=== PATIENT | male | born 1970 | race Caucasian/White ===

== ENCOUNTER 2019-11-30 14:59 | Inpatient (IN) | payer SELFPAY ==
[2019-11-30 15:17] VITALS: BP 170/114; PULSE 104; RESP 18; TEMP 39.3; O2SAT 95; BMI 30.4
--- NOTE | 2019-11-30 15:29 | CTR_ITS ---
PROCEDURE INFORMATION: Exam: CT Abdomen And Pelvis With Contrast Exam date and time: 11/30/2019 3:48 PM Age: 49 years old Clinical indication: Abdominal pain; Patient HX: C/O rlq pain w nausea and diarrhea TECHNIQUE: Imaging protocol: Computed tomography of the abdomen and pelvis with intravenous contrast. Radiation optimization: All CT scans at this facility use at least one of these dose optimization techniques: automated exposure control; mA and/or kV adjustment per patient size (includes targeted exams where dose is matched to clinical indication); or iterative reconstruction. Contrast material: OMNI 300; Contrast volume: 95 ml; Contrast route: 20G; COMPARISON: No relevant prior studies available. RADIATION DOSE METRICS: Total DLP: 1090.78 mGy-cm FINDINGS: Lungs: There is subpleural atelectasis of the dependent portions of the lungs. Mediastinal space: A small hiatal hernia is present. Liver: There is a diffuse decrease in hepatic parenchymal density, consistent with fatty infiltration. Gallbladder and bile ducts: Multiple calcified gallstones are present. The gallbladder is distended with fluid but there is no wall thickening or cholecystitis. There is no common bile duct dilation. Pancreas: Normal. No ductal dilation. Spleen: The spleen is normal. An accessory splenule is present. Adrenals: Normal. No mass. Kidneys and ureters: There is no evidence of hydronephrosis. There is no evidence of renal calcifications. Stomach and bowel: There is a segment of sigmoid colonic wall thickening consistent with severe acute colitis/diverticulitis. As an underlying colonic malignancy cannot be excluded, a follow-up examination after a course of treatment is recommended if clinically warranted. There is abundant sigmoid pericolonic wall thickening with extra luminal gas in the mesentery adjacent to the diverticulitis compatible with localized perforation. No abscess. There is marked wall thickening and inflammatory changes involving the loops of small bowel immediately adjacent to the abnormal: Compatible with probable reactive changes. No ileus or obstruction. The remaining loops of small bowel and colon have an appropriate appearance. There is moderate to severe diverticulosis. Appendix: A normal appendix is identified. Intraperitoneal space: Unremarkable. No free air. No significant fluid collection. Vasculature: There are numerous benign phleboliths in the pelvis. The aorta demonstrates mild atherosclerotic calcification. Lymph nodes: Unremarkable.No enlarged lymph nodes. Bladder: There is nonspecific bladder wall thickening. This may be related to incomplete distention. Reproductive: Unremarkable as visualized. Bones/joints: Osteopenia and moderate degenerative changes in the spine are noted. Soft tissues: There are small bilateral fat filled inguinal hernias. CT/CT abdomen pelvis w con* [id number] IMPRESSION: 1. There is a segment of sigmoid colonic wall thickening consistent with severe acute colitis/diverticulitis. As an underlying colonic malignancy cannot be excluded, a follow-up examination after a course of treatment is recommended if clinically warranted. 2. There is abundant sigmoid pericolonic wall thickening with extra luminal gas in the mesentery adjacent to the diverticulitis compatible with localized perforation. No abscess. No additional free intraperitoneal air. 3. There is marked wall thickening and inflammatory changes involving the loops of small bowel /terminal ileum immediately adjacent to the abnormal sigmoid colon which is compatible with adjacent small bowel reactive changes. Radiation Dose CTDIVOL = (mGy): DLP = 1090.78 (mGy-cm)
--- NOTE | 2019-11-30 15:33 | W.ED.ABDPA2 ---
HPI - Abdominal Pain General: Chief Complaint: Abdominal Pain Stated Complaint: abd pain Time Seen by Provider: 11/30/19 15:27 History of Present Illness: HPI narrative: Mr. Chaudhary is a nice 49-year-old male comes in complaining of lower abdominal pain for the past 3 days. The pain is located in the right lower quadrant. He denies any nausea or vomiting but does feel constipated. He was unaware but does have a fever here. He denies any urinary symptoms other than it hurts more just before he has to urinate but after this he feels better. He denies any history of bowel problems and has had no surgeries on his abdomen. Associated Symptoms: Denies chills, coffee ground emesis, constipation, GI cramping, diarrhea, dysuria, fever(s), heartburn, hematochezia, hematuria, hematemesis, melena, nausea, syncope and vomiting Review of Systems Const: Denies: fever(s), chills, body aches, fatigue, malaise or diaphoresis Eyes: Denies: change in vision, blurry vision, blind spots or photophobia ENMT: Denies: throat pain, odynophagia, hoarseness, swelling of lips/tongue, ear or mastoid pain, ear discharge, change in hearing or nasal discharge Card: Denies: chest pain, palpitations, irregular heart rhythm, edema, lightheadedness, syncope, pre-syncope, dyspnea on exertion or orthopnea Resp: Denies: dyspnea, productive cough, non-productive cough, wheezing, hemoptysis or chest congestion GI: Reports: abdominal pain; Denies: nausea, vomiting, hematemesis, coffee ground emesis, heartburn, diarrhea, constipation, GI cramping, hematochezia or melena : Denies: flank pain, dysuria, urinary frequency, urinary urgency or hematuria Musc: Denies: neck pain, back pain, extremity pain, extremity swelling, joint pain, joint swelling, joint redness, joint warmth or joint stiffness Skin/Breast: Denies: rash, pruritus, erythema, skin tenderness or jaundice Neuro: Denies: headache(s), numbness in extremities, weakness in extremities, sensory changes, lack of coordination, difficulty walking, dizziness, vertigo, confusion or Slurred speech present Venkata/Lymph: Denies: easy bruising, easy bleeding, petechiae, purpura or enlarged lymph nodes All/Imm: Denies: urticaria, throat swelling, tongue swelling, facial swelling or acute wheezing PFSH ED PFSH: Medical History (Updated 11/30/19 @ 17:50 by Lanette Palumbo MD) Hypertension No pertinent past medical history Surgical History No history of previous surgery Social History Smoking and tobacco status: current every day smoker Physical Exam Const: COMMON NORMALS: no acute distress, patient oriented x3, no limitations, healthy appearing and well nourished GENERAL APPEARANCE: cooperative, well kempt and well developed HENMT: COMMON NORMALS: normocephalic, atraumatic, external ears normal, EAC's normal and Normal external nose present HEAD & SCALP: normal to inspection, normocephalic and atraumatic FACE & SINUS: normal facial exam and face symmetric NOSE: Normal external nose present and Normal nares present EXTERNAL EAR: Yes external ears normal EXTERNAL AUDITORY CANAL: EAC's normal MOUTH: Normal oral and palatal mucosa present, lip normal and tongue normal Eye: COMMON NORMALS: Equal, round and reactive pupils present and conjunctivae normal GENERAL EYE: appearance normal, both eyes and all related structures ALIGNMENT: Yes alignment normal PERIORBITAL: periorbital findings normal EYELID: eyelids normal CONJUNCTIVA: Yes conjunctivae normal SCLERA: sclerae normal PUPIL: Yes Equal, round and reactive pupils present Neck/C-Spine: COMMON NORMALS: full ROM, no lymphadenopathy, supple, no meningeal signs and no JVD GENERAL: Yes normal visual inspection and Yes trachea midline Chest: COMMONS NORMALS: normal inspection of the chest and normal palpation of entire chest wall Resp: COMMON NORMALS: normal respiratory effort, No retractions and No use of accessory muscles EFFORT & INSPECTION: Yes able to speak in complete sentences and Yes symmetric chest movement AUSCULTATION: no crackles, no rales, no rhonchi and no wheezes Cardio: COMMON NORMALS: no JVD, regular rate, regular rhythm, S1 normal heart sound present and S2 normal heart sound present RATE: regular rate RHYTHM: regular rhythm HEART SOUNDS: S1 normal heart sound present, S2 normal heart sound present, no click, no gallops, no murmurs, no rubs and abnormal split S2 GI: COMMON NORMALS: Soft to palpation and No hepatosplenomegaly present PALPATION: Yes Soft to palpation, Yes Tenderness to palpation present (GI) Details: RLQ, No Guarding due to palpation present (GI), No Rigid due to palpation, Yes No hepatosplenomegaly present, No Hernia present, No Palpable mass present and No Pulsatile mass present : COMMON NORMALS: Yes no CVA tenderness BLADDER/KIDNEY EXAM: Yes no CVA tenderness Back/Pelvis: COMMON NORMALS: no CVA tenderness, thoracic and lumbar spine normal to inspection, no thoracic nor lumbar tenderness and thoraco-lumbar ROM normal Extremity: COMMON NORMALS: normal to inspection, full ROM, capillary refill normal, no joint enlargement, no clubbing, cyanosis or edema and no calf tenderness Neuro: COMMON NORMALS: patient oriented x3, CN's II-XII intact bilaterally, moves all extremities, no focal motor deficits and no sensory deficits noted MENINGEAL SIGNS: Yes no meningeal signs SPEECH: speech normal Psych: COMMON NORMALS: mental status grossly normal, Normal thought process present, cooperative, normal affect, speech normal and activity/motor behavior normal APPEARANCE: Yes well kempt SPEECH: Yes normal speech THOUGHT PROCESS: Normal thought process present Skin: COMMON NORMALS: no rashes or lesions noted, turgor normal, no jaundice, no petechiae and no mottling GENERAL SKIN EXAM: no rashes or lesions noted and turgor normal Course Vital Signs: Vital signs: Vital Signs Temperature 102.7 F H 11/30/19 15:17 Pulse Rate 77 11/30/19 18:40 Respiratory Rate 20 H 11/30/19 18:40 Blood Pressure 117/71 11/30/19 18:40 Pulse Oximetry 93 11/30/19 18:40 MDM - Abdominal Pain MDM Narrative: Medical decision making narrative: The case was reviewed with Dr. Jade and neck, they will admit and consult respectively. Both agreed with IV Zosyn. The patient understands he cannot eat or drink at this time and further care will be dictated on the inpatient side of service. Lab Data: Attestation: I reviewed the patient's lab results. Labs: Lab Results 11/30/19 11/30/19 11/30/19 Range/Units 15:54 15:54 15:54 WBC 18.0 H (4.0-10.0) 10^3/ uL RBC 5.25 (4.1-5.3) 10^6/u L Hgb 16.3 (11.7-16.6) g/dL Hct 48.9 (42.0-52.0) % MCV 93.1 (80-94) fL MCH 31.0 (28.0-34.0) pg MCHC 33.3 (30.0-36.0) g/dL RDW 12.1 (12.1-15.1) % Plt Count 195 (130-400) 10^3/c mm MPV 13.2 H (7.4-10.4) fL Neut % (Auto) 84.4 % Lymph % (Auto) 7.2 % [place] % (Auto) 7.2 % Eos % (Auto) 0.4 % Baso % (Auto) 0.2 % Neut # (Auto) 15.2 H (1.8-7.7) 10^3/u L Lymph # (Auto) 1.3 (0.8-4.8) 10^3/u L [place] # (Auto) 1.3 H (0.2-0.9) 10^3/u L Eos # (Auto) 0.1 (0.0-0.8) 10^3/u L Baso # (Auto) 0.0 (0.0-0.1) 10^3/u L Nucleated RBC % (a uto) 0 % Nucleated RBCs # 0.0 /100WBC Sodium 132 L (136-145) mmol/L Potassium 4.0 (3.5-5.1) mmol/L Chloride 95 L (98-107) mmol/L Carbon Dioxide 24 (22-29) mmol/L Anion Gap 17.0 (5-19) BUN 4 L (6-20) mg/dL Creatinine 0.8 (0.7-1.2) mg/dL GFR Calculation 102.3 (90-130) mL/min Glucose 123 H (65-115) mg/dL Calculated Osmolal ity 271 L (285-295) mOsm/k g Lactic Acid 1.5 (0.5-2.2) mmol/L Calcium 9.7 (8.5-10.5) mg/dL Total Bilirubin 0.8 (0.15-1.2) mg/dL AST 17 (0-40) U/L ALT 15 (0-41) U/L Alkaline Phosphata se 111 (40-130) IU/L Total Protein 7.6 (6.6-8.7) g/dL Albumin 4.0 (3.5-5.2) g/dL Globulin 3.6 (1.3-4.6) g/dL Lipase 19 (13-60) U/L Urine Color (Yellow) Urine Appearance (CLEAR) Urine pH (5-7) Ur Specific Gravit y (1.005-1.030) Urine Protein (Negative) Urine Glucose (UA) (Normal) Urine Ketones (Negative) Urine Blood (Negative) Urine Nitrate (Negative) Urine Bilirubin (NEGATIVE) Urine Urobilinogen (Negative) mg/dL Ur Leukocyte Carito ase (Negative) Urine RBC (0-2) /hpf Urine WBC (0-5) /hpf Ur Squamous Epith Cells (0-5) Urine Bacteria (NONE) 11/30/19 Range/Units 16:41 WBC (4.0-10.0) 10^3/ uL RBC (4.1-5.3) 10^6/u L Hgb (11.7-16.6) g/dL Hct (42.0-52.0) % MCV (80-94) fL MCH (28.0-34.0) pg MCHC (30.0-36.0) g/dL RDW (12.1-15.1) % Plt Count (130-400) 10^3/c mm MPV (7.4-10.4) fL Neut % (Auto) % Lymph % (Auto) % [place] % (Auto) % Eos % (Auto) % Baso % (Auto) % Neut # (Auto) (1.8-7.7) 10^3/u L Lymph # (Auto) (0.8-4.8) 10^3/u L [place] # (Auto) (0.2-0.9) 10^3/u L Eos # (Auto) (0.0-0.8) 10^3/u L Baso # (Auto) (0.0-0.1) 10^3/u L Nucleated RBC % (a uto) % Nucleated RBCs # /100WBC Sodium (136-145) mmol/L Potassium (3.5-5.1) mmol/L Chloride (98-107) mmol/L Carbon Dioxide (22-29) mmol/L Anion Gap (5-19) BUN (6-20) mg/dL Creatinine (0.7-1.2) mg/dL GFR Calculation (90-130) mL/min Glucose (65-115) mg/dL Calculated Osmolal ity (285-295) mOsm/k g Lactic Acid (0.5-2.2) mmol/L Calcium (8.5-10.5) mg/dL Total Bilirubin (0.15-1.2) mg/dL AST (0-40) U/L ALT (0-41) U/L Alkaline Phosphata se (40-130) IU/L Total Protein (6.6-8.7) g/dL Albumin (3.5-5.2) g/dL Globulin (1.3-4.6) g/dL Lipase (13-60) U/L Urine Color Yellow (Yellow) Urine Appearance Clear (CLEAR) Urine pH 6.5 (5-7) Ur Specific Gravit y 1.005 (1.005-1.030) Urine Protein Neg (Negative) Urine Glucose (UA) Norm (Normal) Urine Ketones Negative (Negative) Urine Blood Neg (Negative) Urine Nitrate Negative (Negative) Urine Bilirubin Neg (NEGATIVE) Urine Urobilinogen 1 H (Negative) mg/dL Ur Leukocyte Carito ase Negative (Negative) Urine RBC None (0-2) /hpf Urine WBC None (0-5) /hpf Ur Squamous Epith Cells None (0-5) Urine Bacteria None (NONE) Imaging Data ^: CT Abd/Pel: Radiologist's impression: [address] [address] [address] Scan Report Signed Patient: Dandre Chaudhary Unit #: [id number] : 1970 Age/Sex: 49 / M ADM Date: 11/30/19 Loc: ER Room/Bed: Attending Dr: Ordering Provider/Ordering MD: Alexandra Flores DO Date of Service: 11/30/19 Procedure(s): CT abdomen pelvis w con* [id number] Accession Number(s): [id number] Report Number: [id number] PROCEDURE INFORMATION: Exam: CT Abdomen And Pelvis With Contrast Exam date and time: 11/30/2019 3:48 PM Age: 49 years old Clinical indication: Abdominal pain; Patient HX: C/O rlq pain w nausea and diarrhea TECHNIQUE: Imaging protocol: Computed tomography of the abdomen and pelvis with intravenous contrast. Radiation optimization: All CT scans at this facility use at least one of these dose optimization techniques: automated exposure control; mA and/or kV adjustment per patient size (includes targeted exams where dose is matched to clinical indication); or iterative reconstruction. Contrast material: OMNI 300; Contrast volume: 95 ml; Contrast route: 20G; COMPARISON: No relevant prior studies available. RADIATION DOSE METRICS: Total DLP: 1090.78 mGy-cm FINDINGS: Lungs: There is subpleural atelectasis of the dependent portions of the lungs. Mediastinal space: A small hiatal hernia is present. Liver: There is a diffuse decrease in hepatic parenchymal density, consistent with fatty infiltration. Gallbladder and bile ducts: Multiple calcified gallstones are present. The gallbladder is distended with fluid but there is no wall thickening or cholecystitis. There is no common bile duct dilation. Pancreas: Normal. No ductal dilation. Spleen: The spleen is normal. An accessory splenule is present. Adrenals: Normal. No mass. Kidneys and ureters: There is no evidence of hydronephrosis. There is no evidence of renal calcifications. Stomach and bowel: There is a segment of sigmoid colonic wall thickening consistent with severe acute colitis/diverticulitis. As an underlying colonic malignancy cannot be excluded, a follow-up examination after a course of treatment is recommended if clinically warranted. There is abundant sigmoid pericolonic wall thickening with extra luminal gas in the mesentery adjacent to the diverticulitis compatible with localized perforation. No abscess. There is marked wall thickening and inflammatory changes involving the loops of small bowel immediately adjacent to the abnormal: Compatible with probable reactive changes. No ileus or obstruction. The remaining loops of small bowel and colon have an appropriate appearance. There is moderate to severe diverticulosis. Appendix: A normal appendix is identified. Intraperitoneal space: Unremarkable. No free air. No significant fluid collection. Vasculature: There are numerous benign phleboliths in the pelvis. The aorta demonstrates mild atherosclerotic calcification. Lymph nodes: Unremarkable.No enlarged lymph nodes. Bladder: There is nonspecific bladder wall thickening. This may be related to incomplete distention. Reproductive: Unremarkable as visualized. Bones/joints: Osteopenia and moderate degenerative changes in the spine are noted. Soft tissues: There are small bilateral fat filled inguinal hernias. CT/CT abdomen pelvis w con* [id number] IMPRESSION: 1. There is a segment of sigmoid colonic wall thickening consistent with severe acute colitis/diverticulitis. As an underlying colonic malignancy cannot be excluded, a follow-up examination after a course of treatment is recommended if clinically warranted. 2. There is abundant sigmoid pericolonic wall thickening with extra luminal gas in the mesentery adjacent to the diverticulitis compatible with localized perforation. No abscess. No additional free intraperitoneal air. 3. There is marked wall thickening and inflammatory changes involving the loops of small bowel /terminal ileum immediately adjacent to the abnormal sigmoid colon which is compatible with adjacent small bowel reactive changes. Radiation Dose CTDIVOL = (mGy): DLP = 1090.78 (mGy-cm) Dictated By: Sherita Bingham Signed By: Sherita Bingham Signed Date/Time: 11/30/19 1640 DD/ 1638 Discharge Plan Discharge Patient Disposition: Admitted As Inpatient Admit Provider: Robert Chow Clinical Impression: Diverticulitis large intestine Qualifiers: Diverticulitis bleeding: without bleeding Diverticulitis complication: with perforation Qualified Code(s): K57.20 - Diverticulitis of large intestine with perforation and abscess without bleeding Condition: Stable Discharge Date/Time: 11/30/19 18:41 Coding Level of Care Code ED Vp Account Director for [facility] Fwd Exam Comprehensive
[2019-11-30 16:02] LABS: Basophils % 0.2 %; Eosinophils # 0.1 10^3/uL (0.0-0.8); Eosinophils % 0.4 %; Hematocrit 48.9 % (42.0-52.0); Hemoglobin 16.3 g/dL (11.7-16.6); Lymphocytes # 1.3 10^3/uL (0.8-4.8); Lymphocytes % 7.2 %; Mean Corpuscular HGB Conc 33.3 g/dL (30.0-36.0); Mean Corpuscular Volume 93.1 fL (80-94); Mean Platelet Volume 13.2 fL (7.4-10.4); Monocytes # 1.3 10^3/uL (0.2-0.9); Monocytes % 7.2 %; Neutrophils # 15.2 10^3/uL (1.8-7.7); Neutrophils % 84.4 %; Nucleated Red Blood Cells % 0 %; Platelet Count 195 10^3/cmm (130-400); Red Blood Count 5.25 10^6/uL (4.1-5.3); Red Cell Distribution Width 12.1 % (12.1-15.1)
[2019-11-30 16:16] LABS: Alanine Aminotransferase 15 U/L (0-41); Alkaline Phosphatase 111 IU/L (40-130); Aspartate Amino Transferase 17 U/L (0-40); Blood Urea Nitrogen 4 mg/dL (6-20); Calcium 9.7 mg/dL (8.5-10.5); Carbon Dioxide 24 mmol/L (22-29); Chloride 95 mmol/L (98-107); Globulin 3.6 g/dL (1.3-4.6); Glomerular Filtration Rate 102.3 mL/min (90-130); Glucose 123 mg/dL (65-115); Lipase 19 U/L (13-60); Osmolality Calculated 271 mOsm/kg (285-295); Sodium 132 mmol/L (136-145); Total Bilirubin 0.8 mg/dL (0.15-1.2); Total Protein 7.6 g/dL (6.6-8.7)
[2019-11-30 16:17] LABS: Lactic Sepsis W/Reflex 1.5 mmol/L (0.5-2.2)
[2019-11-30] MEDS: ondansetron 2 mg/ML SDV 2 mL 4 MG IVP (16:17)
[2019-11-30 16:18] VITALS: RESP 18
[2019-11-30] MEDS: morphine 4 mg/mL SDV 1 mL IVP (16:18)
[2019-11-30] MEDS: lactated ringers 1,000 ML 150 ML IV (16:18)
[2019-11-30] MEDS: iohexol 300 mg/mL 100 mL Btl IV (16:21)
[2019-11-30] MEDS: piperacillin-tazobactam 3.375 GM in sodium chloride 0.9% (plus) 50 ML IV (17:04)
[2019-11-30 17:07] LABS: Bilirubin Urine Neg (NEGATIVE); Blood Urine Neg (Negative); Glucose Urine UA Norm (Normal); Ketones Urine Negative (Negative); Leukocyte Esterase Urine Negative (Negative); Nitrate Urine Negative (Negative); Protein Urine Neg (Negative); Specific Gravity, Urine 1.005 (1.005-1.030); Urine Appearance Clear (CLEAR); Urine Color Yellow (Yellow); Urobilinogen Urine 1 mg/dL (Negative); pH Urine 6.5 (5-7)
[2019-11-30 17:10] LABS: Add Urine Culture? No
--- NOTE | 2019-11-30 17:37 | P.HP_ITS ---
Providers/Chief Complaint Admitting Physician: Robert Chow MD Chief Complaint: abd pain History of Present Illness Dandre Chaudhary is a 49 year old male with a past medical history of hypertension, however he does not take any medications for it who presents to the ER complaining of abdominal pain that started on Sunday. Patient states being in his usual state of health until Sunday morning when he woke up with a right lower quadrant pain. The pain was initially in the right lower quadrant but then seemed to gravitate towards his umbilicus and has remained persistent since then. Intensity of pain is ranging between 4-8 upon 10. There are no aggravating or relieving factors, however he has noted that the pain is somewhat relieved after he has emptied his bladder. He initially he thought this pain may be related to constipation and took some laxatives, however this did not help. This morning he had a small liquid bowel movement. Prior to Sunday his bowel movements have been regular. He is not able to pass much gas. He has been tolerating p.o. intake. No history of vomiting. He has not noticed any blood in his stools recently. He last had a colonoscopy at age 29 for intractable right sided abdominal pain, which he says was pretty unremarkable. There is no history of colon cancer in the family. No history of inflammatory bowel disease. He has never had similar pain in the past. Overnight he also developed some chills and decided to come to the ER today for evaluation. Diagnostics in the ER were notable for a fever of 102.7 Fahrenheit, WBC count of 18. CT abdomen pelvis revealed sigmoid colonic wall thickening consistent with severe acute colitis/diverticulitis. Underlying colonic malignancy could not be excluded. There was abundant sigmoid pericolonic wall thickening with extraluminal gas in the mesentery compatible with a localized perforation. No abscesses were noted. There was no additional free intraperitoneal air. There was also marked wall thickening and inflammatory changes involving the loops of small bowel/terminal ileum immediately adjacent to the abnormal sigmoid colon which is very compatible with reactive changes. Review of Systems General: Reports: 10 or more systems reviewed and unremarkable except in HPI and below Const: Reports: chills; Denies: fever(s) or body aches Eyes: Denies: change in vision, blurry vision or photophobia ENMT: Denies: throat pain, enlarged tonsils, odynophagia, hoarseness or nasal congestion Card: Denies: chest pain, palpitations, irregular heart rhythm, edema, swelling of feet/ankles, lightheadedness, pre-syncope, dyspnea on exertion or orthopnea Resp: Denies: dyspnea, productive cough, non-productive cough, wheezing, stridor, pain on inspiration, change in phlegm color, hemoptysis or chest congestion GI: Reports: abdominal pain; Denies: nausea, vomiting, hematemesis, coffee ground emesis, dysphagia, heartburn, diarrhea, constipation, GI cramping, change in stool character, hematochezia or melena : Denies: flank pain, dysuria, urinary frequency, urinary urgency, urinary hesitancy or hematuria Musc: Denies: neck pain, back pain, extremity pain, joint swelling, joint warmth or deformity Neuro: Denies: headache(s), numbness in extremities, weakness in extremities, sensory changes, difficulty walking, frequent falls, dizziness, vertigo, behavioral changes, Slurred speech present or seizure-like activity Psych: Denies: anxiety, depression, suicidal ideation or homicidal ideation Endo: Denies: polyuria, polydipsia, tired all the time, cold intolerance or ho t flashes Venkata/Lymph: Denies: easy bruising or easy bleeding Medications/Allergies Home Medications Medication Instructions Recorded Confirmed Last Taken Type No Known Home Medications 11/30/19 11/30/19 Unknown History Allergies Allergy/AdvReac Type Severity Reaction Status Date / Time No Known Allergies Allergy Verified 11/30/19 15:24 PFSH Acute PFSH: Medical History (Updated 11/30/19 @ 17:50 by Lanette Palumbo MD) Hypertension No pertinent past medical history Surgical History No history of previous surgery Social History Smoking and tobacco status: current every day smoker Vitals/I&O/Wt Last Vital Signs Temp 102.7 F H 11/30/19 15:17 Pulse 104 H 11/30/19 15:17 Resp 18 11/30/19 16:18 BP 170/114 11/30/19 15:17 Pulse Ox 95 11/30/19 15:17 Weight last 48 hrs Weight 90.718 kg Physical Exam Narrative: EXAM NARRATIVE: GEN: Awake, alert and oriented, no acute distress HEENT: NC/AT, PERRLA CVS: S1S2 N RS: CTA B/L Abd: Soft, non distended, BS+, mild TTP over RLQ. TOPPER PRESS OPERATOR: no focal neuro deficits EXT: no swelling or rashes Data : 11/30/19 15:54 11/30/19 15:54 Micro: Microbiology 11/30/19 15:50 Blood Culture - Preliminary Blood SPECIMEN COLLECTED 11/30/19 15:54 Blood Culture - Preliminary Blood SPECIMEN COLLECTED A&P Assessment and plan (1) Sepsis: Status: Acute Qualifiers: Sepsis type: sepsis due to unspecified organism Sepsis acute organ dysfunction status: without acute organ dysfunction Qualified Code(s): A41.9 - Sepsis, unspecified organism (2) Perforated diverticulum of large intestine: Status: Acute (3) Diverticulitis large intestine: Status: Acute Qualifiers: Diverticulitis bleeding: without bleeding Diverticulitis complication: with perforation Qualified Code(s): K57.20 - Diverticulitis of large intestine with perforation and abscess without bleeding (4) Acute colitis: Status: Acute (5) Hypertension: Status: Acute Qualifiers: Hypertension type: essential hypertension Qualified Code(s): I10 - Essential (primary) hypertension Additional A&P [facility] 1., Meets criteria by way of tachycardia, fever and a source of infection by way of contained diverticular perforation. 2. Contained diverticular perforation. CT abdomen performed today consistent with acute colitis/diverticulitis. Pericolonic wall thickening with extraluminal gas in the mesentery compatible with localized perforation. No abscesses. No additional free intraperitoneal air. Surgical consult placed. Keep patient n.p.o. Antibiotic treatment with piperacillin tazobactam. PRN morphine and Toradol for pain control. IV fluids with D5 normal saline at 100 cc/h. Per CT underlying malignancy could not be ruled out, however this will be evaluated once the acute issues have been addressed. #3 hypertension Per patient he is diagnosed to have essential hypertension, he does not take any medications for this. For now since patient is n.p.o., will use as needed hydralazine Full code DVT prophylaxis Lovenox. Attestations Medical Necessity Statement*: Anticipate greater than 2 midnight admission for diverticulitis with contained perforation, need for IV hydration and IV antibiotics with bowel rest. Coding Level of Care Code Acute Medical Technologist Prn for g Fwd Diagnoses Sepsis A41.9 Sepsis type: sepsis due to unspecified organism Sepsis acute organ dysfunction status: without acute organ dysfunction Perforated diverticulum of large intestine K57.20 Diverticulitis large intestine K57.20 Diverticulitis bleeding: without bleeding Diverticulitis complication: with perforation Acute colitis K52.9 Hypertension I10 Hypertension type: essential hypertension
[2019-11-30] MEDS: enoxaparin 40 mg/0.4 mL Syringe SUBCUT (18:28)
[2019-11-30] MEDS: dextrose 5%-sod chloride 0.9% 1,000 ML 100 ML IV (18:30)
[2019-11-30 18:40] VITALS: BP 117/71; PULSE 77; RESP 20; O2SAT 93
[2019-11-30 19:55] VITALS: BP 135/86; PULSE 74; RESP 18; TEMP 37.2; O2SAT 96
[2019-11-30] MEDS: dextrose 5%-sod chloride 0.45% 1,000 ML 100 ML IV (20:15)
[2019-11-30] MEDS: ketorolac 30 mg/mL INJ 15 MG IVP (20:15)
[2019-11-30 22:27] VITALS: RESP 18
[2019-11-30] MEDS: morphine 4 mg/mL SDV 1 mL 2 MG IVP (22:27)
[2019-12-01] VITALS (7 sets, daily range): BP systolic 116–154; BP diastolic 74–93; PULSE 62–71; RESP 17–24; TEMP 36.9–37.3; O2SAT 94–96
[2019-12-01] MEDS: piperacillin-tazobactam 3.375 GM in sodium chloride 0.9% (plus) 50 ML IV ×3 (00:53→16:51)
[2019-12-01] MEDS: dextrose 5%-sod chloride 0.45% 1,000 ML 100 ML IV ×2 (06:05→15:16)
[2019-12-01] MEDS: ketorolac 30 mg/mL INJ 15 MG IVP (07:20)
[2019-12-01 07:41] LABS: Basophils % 0.2 %; Eosinophils # 0.2 10^3/uL (0.0-0.8); Eosinophils % 1.6 %; Hematocrit 41.9 % (42.0-52.0); Hemoglobin 13.9 g/dL (11.7-16.6); Lymphocytes # 0.9 10^3/uL (0.8-4.8); Lymphocytes % 7.1 %; Mean Corpuscular HGB Conc 33.2 g/dL (30.0-36.0); Mean Corpuscular Hemoglobin 31.2 pg (28.0-34.0); Mean Corpuscular Volume 93.9 fL (80-94); Mean Platelet Volume 13.4 fL (7.4-10.4); Monocytes # 0.9 10^3/uL (0.2-0.9); Neutrophils # 10.7 10^3/uL (1.8-7.7); Neutrophils % 83.7 %; Nucleated Red Blood Cells % 0 %; Platelet Count 178 10^3/cmm (130-400); Red Blood Count 4.46 10^6/uL (4.1-5.3); Red Cell Distribution Width 12.1 % (12.1-15.1); White Blood Count 12.8 10^3/uL (4.0-10.0)
[2019-12-01 08:06] LABS: Alanine Aminotransferase 28 U/L (0-41); Albumin Level 3.2 g/dL (3.5-5.2); Alkaline Phosphatase 119 IU/L (40-130); Anion Gap 13.9 (5-19); Aspartate Amino Transferase 31 U/L (0-40); Blood Urea Nitrogen 6 mg/dL (6-20); Calcium 8.2 mg/dL (8.5-10.5); Carbon Dioxide 23 mmol/L (22-29); Chloride 104 mmol/L (98-107); Globulin 2.7 g/dL (1.3-4.6); Glomerular Filtration Rate 102.3 mL/min (90-130); Glucose 107 mg/dL (65-115); Magnesium 2.3 mg/dL (1.7-2.3); Osmolality Calculated 280 mOsm/kg (285-295); Potassium 3.9 mmol/L (3.5-5.1); Sodium 137 mmol/L (136-145); Total Bilirubin 0.8 mg/dL (0.15-1.2); Total Protein 5.9 g/dL (6.6-8.7)
--- NOTE | 2019-12-01 09:26 | PC.CHAP ---
Pastoral Care Encounter/Spiritual Assessment Type of Contact [] Declined forest nursery supervisor visit [] Patient/Family/Request visit [] Outpatient visit [] Follow-up visit [] Physician referral [] Code/Alert [x] Routine visit [] Staff referral [] Actively dying [] Patient sleeping [] Family support [] [] Out of room [] Palliative care [] [] Receiving care in room [] Pre-surgical visit [] Trauma [] Long length of stay [] ICU visit [] Other: Relational/Emotional Strength [] Patient feels connected with others/family/visitors/staff [] Distress [] Loneliness/isolation [] Abandonment Spirituality of Patient [] Person of Nguyen [] Attends Jainism of their Nguyen [] Believes in Prayer [] Reads Bible or Voodoo materials [] There are Spiritual issues to be addressed [employer] [x] Prayer [] Active listening [] Non-anxious presence [] Spiritual/emotional support [] Crisis/trauma care [] Spiritual counseling [] Bereavement support [] Provided bereavement packet [] Provided Bible/devotional materials [] Provided toy/stuffed animal, coloring book to patient or family member [] Provided Communion [] Anointing/[place] [] Salvation [x] Completed spiritual assessment [] Other: Impact on Illness or Injury [] Angry [] Fearful [] Anxious [] Often cries [] Exhaustion [] Unable to work [] Unable to attend christianity [] Unable to walk/stand [] Unable to read [] Unable to drive [] Unable to eat/drink [] Unable to sleep [] Unable to be with family [] Patient intubated [] Other: Summary Patient resting well. Pain has eased . Time spent with patient 5 min
--- NOTE | 2019-12-01 09:39 | P.CONIM_ITS ---
Providers/Reason For Consult Consulting Physican/Specialty*: General Surgery Romel Villareal MD Reason for Consult*: Sigmoid diverticulitis with evidence of microperforation. Attending Physician: Rojas Issa MD History of Present Illness History of Present Illness Dandre Chaudhary is a 49 year old male who developed some right lower quadrant f ullness/pressure 3 days ago. He says this initially was somewhat of a constipation feeling, but then ended up getting more sore. The patient did take a stool softener but only had a very small bowel movement. His bowel movements prior to this were all normal. He denies any hematochezia but says he has had a small mucousy bowel movement as of yesterday. The pain continued to worsen over the weekend and he came into the emergency room last night with a fever of 102 ?F. His white blood cell count was found to be elevated at 18,000. He had obvious right lower quadrant tenderness on exam. A CAT scan of the abdomen revealed evidence of sigmoid diverticulitis with a few air bubbles outside of the colonic lumen. He was admitted and placed on broad-spectrum antibiotics. The patient says this has never happened to him before. He actually already feels a little bit better this morning but is still having some discomfort. He had a colonoscopy 20 years ago for some right-sided abdominal pain but says the exam was unremarkable. He has no known family history of colon polyps, colon cancer or inflammatory bowel disease. The patient says he does not have a regular primary care physician. Review of Systems General: Reports: 10 or more systems reviewed and unremarkable except in HPI and below Const: Reports: fever(s) GI: Reports: abdominal pain and change in stool character Meds/Allergies Home Medications and Allergies Home Medications Medication Instructions Recorded Confirmed Last Taken Type No Known Home Medications 11/30/19 11/30/19 Unknown History Allergies Allergy/AdvReac Type Severity Reaction Status Date / Time No Known Allergies Allergy Verified 11/30/19 15:24 Current Medications Current Medications Generic Name Dose Route Start Last Admin Trade Name Freq PRN Reason Stop Dose Admin Enoxaparin Sodium 40 mg 11/30/19 18:00 11/30/19 18:28 Lovenox SUBCUT 40 mg Q24H JABIER Administration Dextrose/Sodium Chloride 1,000 mls @ 100 mls/hr 11/30/19 19:04 12/01/19 06:05 Dextrose 5%-Sod Chloride 0.45% IV 100 mls/hr .Q10H JABIER Administration Piperacillin Sod/Tazobactam 50 mls @ 12.5 mls/hr 11/30/19 23:00 12/01/19 08:59 Sod 3.375 gm/ Sodium Chloride IV 12.5 mls/hr Q8H JABIER Administration Protocol Ketorolac Tromethamine 15 mg 11/30/19 17:31 12/01/19 07:20 Toradol IVP 12/05/19 17:30 15 mg Q8H PRN Administration MODERATE PAIN Morphine Sulfate 2 mg 11/30/19 17:31 11/30/19 22:27 Morphine IVP 2 mg Q4H PRN Administration SEVERE PAIN PFSH Acute PFSH: Medical History (Updated 12/01/19 @ 09:46 by Romel Villareal MD) Hypertension Surgical History No history of previous surgery Social History (Updated 12/01/19 @ 09:46 by Romel Villareal MD) Smoking and tobacco status: current every day smoker cigarettes Packs smoked per day: 1 Years cigarettes smoked: 35 Alcohol intake: current Alcohol intake frequency: 3 or more drinks per day Alcohol type: beer Alcohol use comment: 6-8 beers a day Vitals/I&O/Wt Last Vital Signs Temp 98.9 F 12/01/19 07:56 Pulse 71 12/01/19 07:56 Resp 18 12/01/19 07:56 BP 130/82 12/01/19 07:56 Pulse Ox 94 12/01/19 07:56 11/30/19 12/01/19 12/01/19 22:59 06:59 14:59 Intake Total 1000 / 1931.666 931.666 / 1931.666 Output Total 400 / 400 Balance 600 / 1531.666 931.666 / 1531.666 Weight last 48 hrs Weight 200 lb Physical Exam Narrative: EXAM NARRATIVE: The patient was encountered in his hospital room. He does not appear to be in any distress. The pupils are equal. No carotid bruits are heard. The lungs are clear anteriorly. The heart is regular. The abdomen is mildly obese but does reveal some bowel sounds. The patient's maximum point of tenderness is a couple inches to the right side and a couple in ches inferior to the umbilicus, but he does have some scattered tenderness around his abdomen. There is no evidence of peritoneal signs. No obvious masses are palpated, but firm palpation was not carried out over the patient's maximum point of tenderness. The extremities reveal no edema. Neurologically the patient appears to be grossly intact. Data Micro: Micro: Microbiology 11/30/19 15:50 Blood Culture - Pr eliminary Blood SPECIMEN [facility] 11/30/19 15:54 Blood Culture - Pr eliminary Blood SPECIMEN [facility] Imaging^: CT Abd/Pel: My impression: CT reviewed. The patient has an obvious inflammatory process involving the mid sigmoid colon, which loops over to the right side of the abdomen in consistency with the patient's current exam. I agree that the most likely diagnosis is diverticulitis. Radiologist's impression: CT scan abdomen/pelvis 11/30/2019 iMPRESSION: 1. There is a segment of sigmoid colonic wall thickening consistent with severe acute colitis/diverticulitis. As an underlying colonic malignancy cannot be excluded, a follow-up examination after a course of treatment is recommended if clinically warranted. 2. There is abundant sigmoid pericolonic wall thickening with extra luminal gas in the mesentery adjacent to the diverticulitis compatible with localized perforation. No abscess. No additional free intraperitoneal air. 3. There is marked wall thickening and inflammatory changes involving the loops of small bowel /terminal ileum immediately adjacent to the abnormal sigmoid colon which is compatible with adjacent small bowel reactive changes. A&P Assessment and plan (1) Perforated diverticulum of large intestine: Status: Acute (2) Diverticulitis large intestine: The patient appears to have a complicated case of sigmoid diverticulitis as evidenced by at least a microperforation. He already feels a little bit better today and his white count is improved. I discussed diverticulitis with the patient in detail. This appears to be his first episode. I have recommended that he consider a colonoscopy in 6 to 8 weeks, assuming continued improvement to rule out any intracolonic pathology. I am going to allow the patient a clear liquid diet for now. He is also requesting a nicotine patch which I will order. I will continue following the patient while he is hospitalized. Status: Acute Qualifiers: Diverticulitis bleeding: without bleeding Diverticulitis complication: with perforation Qualified Code(s): K57.20 - Diverticulitis of large intestine with perforation and abscess without bleeding (3) Alcohol abuse: The patient denies any withdrawal symptoms. Continue to watch. Status: Acute Consult Attestations Medical Necessity Statement: See admitting service's notation. Coding Level of Care Code Acute Data Warehouse Analyst for [facility] Fwd Diagnoses Perforated diverticulum of large intestine K57.20 Diverticulitis large intestine K57.20 Diverticulitis bleeding: without bleeding Diverticulitis complication: with perforation Alcohol abuse F10.10
--- NOTE | 2019-12-01 09:52 | PC.NURSE ---
patient's diet changed to clear liquid. publicity writer provided patient with water, jello and sprite.
[2019-12-01] MEDS: nicotine 14 mg Patch 1 PATCH TRANSDERMA (10:49)
--- NOTE | 2019-12-01 12:07 | P.PN_ITS ---
Subjective Subjective: Interval history: This morning patient states he is doing better, doing well with clear liquid diet, no fevers, no bowel movement as of yet Vitals/I&O/Wt Last Vital Signs Temp 98.5 F 12/01/19 11:33 Pulse 62 12/01/19 11:33 Resp 18 12/01/19 11:33 BP 120/77 12/01/19 11:33 Pulse Ox 96 12/01/19 11:33 11/30/19 12/01/19 12/01/19 22:59 06:59 14:59 Intake Total 1000 / 1000 931.666 / 1931.666 Output Total 400 / 400 Balance 600 / 600 931.666 / 1531.666 Weight last 48 hrs Weight 90.718 kg Physical Exam Const: COMMON NORMALS: no acute distress and patient oriented x3 HENMT: COMMON NORMALS: normocephalic HEAD & SCALP: normocephalic Neck/C-Spine: COMMON NORMALS: no JVD Resp: COMMON NORMALS: normal respiratory effort, No retractions, No use of accessory muscles and clear to auscultation bilaterally AUSCULTATION: clear to auscultation bilaterally Cardio: COMMON NORMALS: no JVD, regular rate, regular rhythm, S1 normal heart sound present and S2 normal heart sound present RATE: regular rate RHYTHM: regular rhythm HEART SOUNDS: S1 normal heart sound present and S2 normal heart sound present GI: COMMON NORMALS: Normal to inspection, nondistended, normoactive bowel sounds present, Soft to palpation, No hepatosplenomegaly present, no masses and no bruits PALPATION: Yes Soft to palpation, Yes Tenderness to palpation present (GI) and Yes No hepatosplenomegaly present Extremity: COMMON NORMALS: capillary refill normal, no clubbing, cyanosis or edema, no calf tenderness and no pedal edema Neuro: COMMON NORMALS: patient oriented x3 Psych: COMMON NORMALS: mental status grossly normal Data : 12/01/19 07:28 12/01/19 07:28 Micro: Microbiology 11/30/19 15:50 Blood Culture - Preliminary Blood SPECIMEN COLLECTED 11/30/19 15:54 Blood Culture - Preliminary Blood SPECIMEN COLLECTED A&P Assessment and plan (1) Sepsis: Status: Acute Qualifiers: Sepsis type: sepsis due to unspecified organism Sepsis acute organ dysfunction status: without acute organ dysfunction Qualified Code(s): A41.9 - Sepsis, unspecified organism (2) Perforated diverticulum of large intestine: Status: Acute (3) Diverticulitis large intestine: Status: Acute Qualifiers: Diverticulitis bleeding: without bleeding Diverticulitis complication: with perforation Qualified Code(s): K57.20 - Diverticulitis of large intestine with perforation and abscess without bleeding (4) Acute colitis: Status: Acute (5) Hypertension: Status: Acute Qualifiers: Hypertension type: essential hypertension Qualified Code(s): I10 - Essential (primary) hypertension Additional A&P Information [facility]. 1., Meets criteria by way of tachycardia, fever and a source of infection by way of contained diverticular perforation. 2. Contained diverticular perforation. CT abdomen performed today consistent with acute colitis/diverticulitis. Pericolonic wall thickening with extraluminal gas in the mesentery compatible with localized perforation. No abscesses. No additional free intraperitoneal air. Dr. Villareal consulted Currently on a clear liquid diet Antibiotic treatment with piperacillin tazobactam. PRN morphine and Toradol for pain control. Stop fluids Per CT underlying malignancy could not be ruled out, however this will be evaluated once the acute issues have been addressed. #3 hypertension Per patient he is diagnosed to have essential hypertension, he does not take any medications for this. For now since patient is n.p.o., will use as needed hydralazine Full code DVT prophylaxis Lovenox. Attestations Medical Necessity Statement*: Requires continued hospitalization for perforated diverticulitis Coding Level of Care Code Acute Bin Piler for [facility] Fw Diagnoses Sepsis A41.9 Sepsis type: sepsis due to unspecified organism Sepsis acute organ dysfunction status: without acute organ dysfunction Perforated diverticulum of large intestine K57.20 Diverticulitis large intestine K57.20 Diverticulitis bleeding: without bleeding Diverticulitis complication: with perforation Acute colitis K52.9 Hypertension I10 Hypertension type: essential hypertension
[2019-12-01] MEDS: enoxaparin 40 mg/0.4 mL Syringe SUBCUT (16:51)
[2019-12-01] MEDS: morphine 4 mg/mL SDV 1 mL 2 MG IVP (16:51)
[2019-12-02] VITALS: BP 144/88; PULSE 69; RESP 20; TEMP 37.3; O2SAT 97
[2019-12-02] MEDS: piperacillin-tazobactam 3.375 GM in sodium chloride 0.9% (plus) 50 ML IV ×3 (01:04→16:39)
[2019-12-02] MEDS: dextrose 5%-sod chloride 0.45% 1,000 ML 100 ML IV ×2 (02:13→12:16)
[2019-12-02] MEDS: acetaminophen 325 mg Tablet 650 MG PO ×2 (03:48→18:48)
[2019-12-02 03:55] VITALS: BP 115/68; PULSE 64; RESP 18; TEMP 37; O2SAT 95
[2019-12-02 05:58] LABS: Basophils % 0.2 %; Eosinophils # 0.2 10^3/uL (0.0-0.8); Eosinophils % 2.5 %; Hematocrit 40.8 % (42.0-52.0); Hemoglobin 13.5 g/dL (11.7-16.6); Lymphocytes % 12.2 %; Mean Corpuscular HGB Conc 33.1 g/dL (30.0-36.0); Mean Corpuscular Volume 96.7 fL (80-94); Mean Platelet Volume 14.4 fL (7.4-10.4); Monocytes # 0.7 10^3/uL (0.2-0.9); Monocytes % 8.2 %; Neutrophils # 6.5 10^3/uL (1.8-7.7); Neutrophils % 76.5 %; Nucleated Red Blood Cells % 0 %; Platelet Count 165 10^3/cmm (130-400); Red Blood Count 4.22 10^6/uL (4.1-5.3); Red Cell Distribution Width 12.3 % (12.1-15.1); White Blood Count 8.4 10^3/uL (4.0-10.0)
[2019-12-02 06:24] LABS: Phosphorus 3.6 mg/dL (2.5-4.5)
[2019-12-02 06:28] LABS: Alanine Aminotransferase 22 U/L (0-41); Albumin Level 2.9 g/dL (3.5-5.2); Alkaline Phosphatase 106 IU/L (40-130); Anion Gap 13.7 (5-19); Aspartate Amino Transferase 19 U/L (0-40); Blood Urea Nitrogen 4 mg/dL (6-20); Carbon Dioxide 26 mmol/L (22-29); Chloride 103 mmol/L (98-107); Globulin 3.2 g/dL (1.3-4.6); Glomerular Filtration Rate 102.3 mL/min (90-130); Glucose 119 mg/dL (65-115); Magnesium 2.2 mg/dL (1.7-2.3); Osmolality Calculated 285 mOsm/kg (285-295); Potassium 3.7 mmol/L (3.5-5.1); Sodium 139 mmol/L (136-145); Total Bilirubin 0.4 mg/dL (0.15-1.2); Total Protein 6.1 g/dL (6.6-8.7)
[2019-12-02 06:34] LABS: Slide Review Slide Review Perform
--- NOTE | 2019-12-02 06:54 | PM.PN ---
Subjective Subjective: Interval history: The patient is feeling better. He still has some abdominal soreness but it is improved. He is having some loose, mucousy bowel movements at times. Vitals/I&O/Wt Last Vital Signs Temp 98.6 F 12/02/19 03:55 Pulse 64 12/02/19 03:55 Resp 18 12/02/19 03:55 BP 115/68 12/02/19 03:55 Pulse Ox 95 12/02/19 03:55 12/01/19 12/01/19 12/02/19 14:59 22:59 06:59 Intake Total 650 / 3468.333 1568.333 / 3468.333 1250 / 3468.333 Output Total 325 / 1125 800 / 1125 Balance 650 / 2343.333 1243.333 / 2343.333 450 / 2343.333 Weight last 48 hrs Weight 200 lb Physical Exam Narrative: EXAM NARRATIVE: The patient has remained essentially afebrile. His abdomen is softer today but he still has some mild tenderness in the lower abdomen. Data : 12/02/19 05:03 12/02/19 05:03 Micro: Microbiology 11/30/19 15:50 Blood Culture - Preliminary Blood NEGATIVE TO DATE 11/30/19 15:54 Blood Culture - Preliminary Blood NEGATIVE TO DATE A&P Assessment and plan (1) Perforated diverticulum of large intestine: Status: Acute (2) Diverticulitis large intestine: Low residue diet. Continue broad-spectrum antibiotics. I suspect the patient can be converted to oral antibiotics and be discharged within the next 24 hours if he continues to improve. Status: Acute Qualifiers: Diverticulitis bleeding: without bleeding Diverticulitis complication: with perforation Qualified Code(s): K57.20 - Diverticulitis of large intestine with perforation and abscess without bleeding (3) Alcohol abuse: The patient denies any withdrawal symptoms. Continue to watch. Status: Acute Attestations Medical Necessity Statement*: See admitting service's notation. Coding Level of Care Code Acute News Internship for [facility] Lauren Diagnoses Perforated diverticulum of large intestine K57.20 Diverticulitis large intestine K57.20 Diverticulitis bleeding: without bleeding Diverticulitis complication: with perforation Alcohol abuse F10.10
[2019-12-02 07:34] VITALS: BP 131/83; PULSE 58; RESP 18; TEMP 37; O2SAT 96
[2019-12-02] MEDS: nicotine 14 mg Patch 1 PATCH TRANSDERMA (09:25)
[2019-12-02 11:04] VITALS: BP 150/93; PULSE 67; RESP 16; TEMP 37.4; O2SAT 98
[2019-12-02] MEDS: ketorolac 30 mg/mL INJ 15 MG IVP (12:21)
--- NOTE | 2019-12-02 12:36 | P.PN_ITS ---
Subjective Subjective: Interval history: This morning patient is feeling better, had 2 bowel movements, currently trying a GI soft diet, no fevers, no chills, no worsening abdominal pain Vitals/I&O/Wt Last Vital Signs Temp 99.3 F 12/02/19 11:04 Pulse 67 12/02/19 11:04 Resp 16 12/02/19 11:04 BP 150/93 12/02/19 11:04 Pulse Ox 98 12/02/19 11:04 12/01/19 12/02/19 12/02/19 22:59 06:59 14:59 Intake Total 1568.333 / 2218.333 1300 / 3518.333 1702 / 1702 Output Total 325 / 325 800 / 1125 800 / 800 Balance 1243.333 / 1893.333 500 / 2393.333 902 / 902 Weight last 48 hrs Weight 90.718 kg Physical Exam Const: COMMON NORMALS: no acute distress and patient oriented x3 HENMT: COMMON NORMALS: normocephalic HEAD & SCALP: normocephalic Neck/C-Spine: COMMON NORMALS: no JVD Resp: COMMON NORMALS: normal respiratory effort, No retractions, No use of accessory muscles and clear to auscultation bilaterally AUSCULTATION: clear to auscultation bilaterally Cardio: COMMON NORMALS: no JVD, regular rate, regular rhythm, S1 normal heart sound present and S2 normal heart sound present RATE: regular rate RHYTHM: regular rhythm HEART SOUNDS: S1 normal heart sound present and S2 normal heart sound present GI: COMMON NORMALS: Normal to inspection, nondistended, normoactive bowel sounds present, Soft to palpation, non-tender, No hepatosplenomegaly present, no masses and no bruits PALPATION: Yes Soft to palpation and Yes No hepatosplenomegaly present Extremity: COMMON NORMALS: capillary refill normal, no clubbing, cyanosis or edema, no calf tenderness and no pedal edema Neuro: COMMON NORMALS: patient oriented x3 Psych: COMMON NORMALS: mental status grossly normal Data : 12/02/19 05:03 12/02/19 05:03 Micro: Microbiology 12/01/19 15:44 C.difficile Toxin B Gene (PCR) - Final Stool 11/30/19 15:50 Blood Culture - Preliminary Blood NEGATIVE TO DATE 11/30/19 15:54 Blood Culture - Preliminary Blood NEGATIVE TO DATE A&P Assessment and plan (1) Sepsis: Status: Acute Qualifiers: Sepsis type: sepsis due to unspecified organism Sepsis acute organ dysfunction status: without acute organ dysfunction Qualified Code(s): A41.9 - Sepsis, unspecified organism (2) Perforated diverticulum of large intestine: Status: Acute (3) Diverticulitis large intestine: Status: Acute Qualifiers: Diverticulitis bleeding: without bleeding Diverticulitis complication: with perforation Qualified Code(s): K57.20 - Diverticulitis of large intestine with perforation and abscess without bleeding (4) Acute colitis: Status: Acute (5) Hypertension: Status: Acute Qualifiers: Hypertension type: essential hypertension Qualified Code(s): I10 - Essential (primary) hypertension Additional A&P Information Admit to [facility] floor. 1., Meets criteria by way of tachycardia, fever and a source of infection by way of contained diverticular perforation. 2. Contained diverticular perforation. CT abdomen performed today consistent with acute colitis/diverticulitis. Pericolonic wall thickening with extraluminal gas in the mesentery compatible with localized perforation. No abscesses. No additional free intraperitoneal air. Dr. Villareal consulted Currently on a GI soft diet Antibiotic treatment with piperacillin tazobactam. PRN morphine and Toradol for pain control. Stop fluids Per CT underlying malignancy could not be ruled out, however this will be evaluated once the acute issues have been addressed. Likely discharge in the next 24 hours #3 hypertension Per patient he is diagnosed to have essential hypertension, he does not take any medications for this. will use as needed hydralazine #4 alcohol abuse, continue to monitor Full code DVT prophylaxis Lovenox. Attestations Medical Necessity Statement*: Requires continued hospitalization due to perforated diverticular abscess Coding Level of Care Code Acute Straw Hat Brim Raiser Operator for [facility] Diagnoses Sepsis A41.9 Sepsis type: sepsis due to unspecified organism Sepsis acute organ dysfunction status: without acute organ dysfunction Perforated diverticulum of large intestine K57.20 Diverticulitis large intestine K57.20 Diverticulitis bleeding: without bleeding Diverticulitis complication: with perforation Acute colitis K52.9 Hypertension I10 Hypertension type: essential hypertension
[2019-12-02 15:30] VITALS: BP 143/74; PULSE 69; RESP 18; TEMP 37.5; O2SAT 96
[2019-12-02] MEDS: enoxaparin 40 mg/0.4 mL Syringe SUBCUT (17:39)
--- NOTE | 2019-12-02 18:09 | PC.NURSE ---
Summary Pt has had a couple of BM which he flushed and has urinated with no problems. Pt had no c/o pain only discomfort which I gave him Toradol for.
[2019-12-02 19:43] VITALS: BP 127/78; PULSE 74; RESP 20; TEMP 37.3; O2SAT 96
[2019-12-03] VITALS: BP 118/73; PULSE 63; RESP 20; TEMP 36.7; O2SAT 96
[2019-12-03] MEDS: dextrose 5%-sod chloride 0.45% 1,000 ML 100 ML IV ×2 (00:01→08:09)
[2019-12-03] MEDS: ketorolac 30 mg/mL INJ 15 MG IVP (00:55)
[2019-12-03 02:39] LABS: Basophils % 0.2 %; Eosinophils # 0.2 10^3/uL (0.0-0.8); Hematocrit 38.7 % (42.0-52.0); Hemoglobin 12.7 g/dL (11.7-16.6); Lymphocytes # 1.5 10^3/uL (0.8-4.8); Lymphocytes % 15.1 %; Mean Corpuscular HGB Conc 32.8 g/dL (30.0-36.0); Mean Corpuscular Hemoglobin 31.1 pg (28.0-34.0); Mean Corpuscular Volume 94.9 fL (80-94); Mean Platelet Volume 14.1 fL (7.4-10.4); Monocytes % 9.4 %; Neutrophils # 7.4 10^3/uL (1.8-7.7); Nucleated Red Blood Cells % 0 %; Platelet Count 187 10^3/cmm (130-400); Red Blood Count 4.08 10^6/uL (4.1-5.3); White Blood Count 10.1 10^3/uL (4.0-10.0)
[2019-12-03 03:03] LABS: Alanine Aminotransferase 19 U/L (0-41); Albumin Level 2.8 g/dL (3.5-5.2); Alkaline Phosphatase 88 IU/L (40-130); Anion Gap 13.6 (5-19); Aspartate Amino Transferase 14 U/L (0-40); Blood Urea Nitrogen 4 mg/dL (6-20); Calcium 8.9 mg/dL (8.5-10.5); Carbon Dioxide 26 mmol/L (22-29); Chloride 106 mmol/L (98-107); Globulin 3.1 g/dL (1.3-4.6); Glomerular Filtration Rate 89.3 mL/min (90-130); Glucose 120 mg/dL (65-115); Magnesium 2.2 mg/dL (1.7-2.3); Osmolality Calculated 291 mOsm/kg (285-295); Potassium 3.6 mmol/L (3.5-5.1); Sodium 142 mmol/L (136-145); Total Bilirubin 0.3 mg/dL (0.15-1.2); Total Protein 5.9 g/dL (6.6-8.7)
[2019-12-03 03:06] LABS: Phosphorus 4.6 mg/dL (2.5-4.5)
[2019-12-03 03:10] LABS: Slide Review Slide Review Perform
[2019-12-03 04:00] VITALS: BP 118/73; PULSE 57; RESP 20; TEMP 36.8; O2SAT 96
[2019-12-03 07:12] VITALS: BP 160/98; PULSE 61; RESP 18; TEMP 37.3; O2SAT 98
[2019-12-03 07:18] VITALS: BP 150/80
[2019-12-03] MEDS: piperacillin-tazobactam 3.375 GM in sodium chloride 0.9% (plus) 50 ML IV ×2 (08:08)
--- NOTE | 2019-12-03 08:45 | PM.PN ---
Subjective Subjective: Interval history: The patient continues to feel better daily. He says his bowel movements are starting to solidify. He is somewhat anxious to go home. Vitals/I&O/Wt Last Vital Signs Temp 99.1 F 12/03/19 07:12 Pulse 61 12/03/19 07:12 Resp 18 12/03/19 07:12 BP 150/80 12/03/19 07:18 Pulse Ox 98 12/03/19 07:12 12/02/19 12/03/19 12/03/19 22:59 06:59 14:59 Intake Total 1580 / 3672 150 / 3672 933.333 / 933.333 Output Total 925 / 1725 300 / 300 Balance 655 / 1947 150 / 1947 633.333 / 633.333 Physical Exam Narrative: EXAM NARRATIVE: The abdomen continues to get softer and more nontender. He has minimal lower abdominal tenderness on exam today. Data : 12/03/19 02:05 12/03/19 02:05 Micro: Microbiology 12/01/19 15:44 C.difficile Toxin B Gene (PCR) - Final Stool A&P Assessment and plan (1) Perforated diverticulum of large intestine: Status: Acute (2) Diverticulitis large intestine: The patient continues to improve. I think he can be safely discharged today on oral antibiotics for another week or so. I have discussed the patient having a colonoscopy 6 to 8 weeks in the future, assuming continued improvement. I will be happy to follow-up with him in my office at that time if desired. Please call if I can be of further assistance in the interim. Status: Acute Qualifiers: Diverticulitis bleeding: without bleeding Diverticulitis complication: with perforation Qualified Code(s): K57.20 - Diverticulitis of large intestine with perforation and abscess without bleeding (3) Alcohol abuse: The patient denies any withdrawal symptoms. Continue to watch. Status: Acute Attestations Medical Necessity Statement*: See admitting service's notation. Coding Level of Care Code Acute House Detective for [facility] Diagnoses Perforated diverticulum of large intestine K57.20 Diverticulitis large intestine K57.20 Diverticulitis bleeding: without bleeding Diverticulitis complication: with perforation Alcohol abuse F10.10
--- NOTE | 2019-12-03 10:30 | PM.DCS ---
Discharge Providers Date of Admission: 11/30/19 16:52 Date of Discharge: December 03, 2019 Attending Provider at Admission: Robert Chow MD Attending Provider at Discharge: Rojas Issa MD Diagnoses at Discharge Discharge Diagnosis (1) Perforated diverticulum of large intestine: Status: Acute (2) Diverticulitis large intestine: Status: Acute Qualifiers: Diverticulitis bleeding: without bleeding Diverticulitis complication: with perforation Qualified Code(s): K57.20 - Diverticulitis of large intestine with perforation and abscess without bleeding (3) Alcohol abuse: Status: Acute Reason for Visit Reason for Visit: abd pain Hospital Course Discharge Summary: This is a 49-year-old male with no significant past medical history who presents [facility] due to complaints of abdominal pain Patient was admitted for sepsis secondary to contained diverticular perforation and diverticulitis, CT scan of the abdomen showed acute colitis/diverticulitis, Pericolonic wall thickening with extraluminal gas in the mesentery compatible with localized perforation, No abscesses, No additional free intraperitoneal air. Patient was kept n.p.o., received IV fluids, broad-spectrum antibiotics, surgery was consulted, Dr. Villareal advised for conservative management. Patient's clinical condition gradually improved, his diet was slowly advanced, his abdominal pain improved, had regular bowel movements daily. Patient was discharged on Augmentin for 11 remaining days, instructions for a GI soft low fiber diet for 1 month followed by high-fiber diet, patient is to follow-up with Dr. Villareal in 4 to 6 weeks for consideration for colonoscopy as there was concerns for possible underlying malignancy. Patient was also found to be hypertensive during his hospitalization, discharged on Norvasc 5 mg daily, with close follow-up with his primary care provider in 1 week. Physical Exam Const: COMMON NORMALS: no acute distress and patient oriented x3 HENMT: COMMON NORMALS: normocephalic HEAD & SCALP: normocephalic Neck/C-Spine: COMMON NORMALS: no JVD Resp: COMMON NORMALS: normal respiratory effort, No retractions, No use of accessory muscles and clear to auscultation bilaterally AUSCULTATION: clear to auscultation bilaterally Cardio: COMMON NORMALS: no JVD, regular rate, regular rhythm, S1 normal heart sound present and S2 normal heart sound present RATE: regular rate RHYTHM: regular rhythm HEART SOUNDS: S1 normal heart sound present and S2 normal heart sound present GI: COMMON NORMALS: Normal to inspection, nondistended, normoactive bowel sounds present, Soft to palpation, non-tender, No hepatosplenomegaly present, no masses and no bruits PALPATION: Yes Soft to palpation and Yes No hepatosplenomegaly present Extremity: COMMON NORMALS: capillary refill normal, no clubbing, cyanosis or edema, no calf tenderness and no pedal edema Neuro: COMMON NORMALS: patient oriented x3 Psych: COMMON NORMALS: mental status grossly normal Discharge Data Data Completed and Pending: Completed Studies During Hospitalization Category Date Time Status CT abdomen pelvis w con* [id number] Stat Cat Scan 11/30/19 15:29 Completed Pending at discharge Category Date Time Status Blood Culture Sta t Lab 11/30/19 15:50 Results Phosphorus AM LAB S Lab 12/04/19 04:00 Ordered Labs from last 24 hours 12/03/19 12/03/19 12/03/19 02:05 02:05 02:05 WBC 10.1 H RBC 4.08 L Hgb 12.7 Hct 38.7 L MCV 94.9 H MCH 31.1 MCHC 32.8 RDW 12.0 L Plt Count 187 MPV 14.1 H Neut % (Auto) 73.0 Lymph % (Auto) 15.1 Crosby % (Auto) 9.4 Eos % (Auto) 2.0 Baso % (Auto) 0.2 Neut # (Auto) 7.4 Lymph # (Auto) 1.5 Crosby # (Auto) 1.0 H Eos # (Auto) 0.2 Baso # (Auto) 0.0 Nucleated RBC % (a uto) 0 Nucleated RBCs # 0.0 Sodium 142 Potassium 3.6 Chloride 106 Carbon Dioxide 26 Anion Gap 13.6 BUN 4 L Creatinine 0.9 GFR Calculation 89.3 L Glucose 120 H Calculated Osmolal ity 291 Calcium 8.9 Phosphorus 4.6 H Magnesium 2.2 Total Bilirubin 0.3 AST 14 ALT 19 Alkaline Phosphata se 88 Total Protein 5.9 L Albumin 2.8 L Globulin 3.1 Vitals: Last Vital Signs Temp 99.1 F 12/03/19 07:12 Pulse 61 12/03/19 07:12 Resp 18 12/03/19 07:12 BP 150/80 12/03/19 07:18 Pulse Ox 98 12/03/19 07:12 Discharge Plan Discharge Patient Disposition: Home, Self-Care Condition: Stable Prescriptions: New amoxicillin-pot clavulanate [Augmentin] 875-125 mg tablet 1 tab PO Q8H 11 Days Qty: 33 RF: 0 amlodipine [Norvasc] 5 mg tablet 5 mg PO DAILY 30 Days Qty: 30 RF: 0 No Action No Known Home Medications RF: 0 Discharge Orders: Discharge Order (Routine); Ordered 12/03/19 Ordered By: Rojas Issa Referrals: Romel Villareal MD [Physician] - 1 month Discharge Diet: GI Soft Discharge Activity: Resume usual activity Patient Instructions: Diverticulitis (DC), Chronic Hypertension (DC), Diverticulosis Diet (GEN) Activity Restrictions/Additional Instructions: -Please follow-up with primary care provider in 1 week for recheck blood pressure for hypertension -Please take antibiotics as prescribed -If you feel worsening abdominal pain, bloody or black stools, come back to emergency room -Follow-up with Dr. Villareal in 4 to 6 weeks Discharge Attestations Time Spent in Discharge Care*: less than 30 min Quality Metrics Clinical Quality Measures During this hospital stay, did patient experience: None Coding Level of Care Code Acute Improvement Manager for [facility] Diagnoses Perforated diverticulum of large intestine K57.20 Diverticulitis large intestine K57.20 Diverticulitis bleeding: without bleeding Diverticulitis complication: with perforation Alcohol abuse F10.10
[2019-12-03 11:10] VITALS: BP 150/80
== END 2019-12-03 11:45 | disposition home or self-care (01) | DRG 872 ==
LOC: ER 17:07 → MEDSURG 17:35
PROVIDERS: Emergency Medicine; Student in an Organized Health Care Education/Training Program; Admitting Provider Student in an Organized Health Care Education/Training Program; Visit Provider Family Medicine
DX: A41.9 Sepsis, unspecified organism (principal); K57.20 Diverticulitis of large intestine with perforation and abscess without bleeding; F10.10 Alcohol abuse, uncomplicated; I10 Essential (primary) hypertension; F17.210 Nicotine dependence, cigarettes, uncomplicated
CPT/HCPCS: 12345; 36415; 74177; 80053; 81001; 83605; 83690; 83735; 84100; 85025; 87040; 87493; 96372; 96375; 99282; J0131; J1650; J1885; J2270; J2405; J2543; J7799; Q9967

== ENCOUNTER 2020-02-10 15:58 | Inpatient (IN) | payer SELFPAY ==
[2020-02-10] VITALS (8 sets, daily range): BP systolic 140–156; BP diastolic 89–104; PULSE 82–86; RESP 14–18; TEMP 37.1; O2SAT 93–98; BMI 30.4
--- NOTE | 2020-02-10 16:26 | XR_ITS ---
WS: [id number] EXAM: PA CHEST X-RAY WITH ABDOMINAL OBSTRUCTIVE SERIES DATE OF EXAMINATION: 02/10/2020, 1648 hours COMPARISON: None. HISTORY: Patient is 49 years old with abdominal pain and distention. FINDINGS: Heart size and mediastinal contours are fairly normal. Calcified plaque in the aorta. Pulmonary vascu larity is normal. Slight chronic lung changes seen. Lungs are clear. The bowel gas pattern is fairly normal in appearance. There appears to be air-fluid levels within nondilated bowel in the right side of the abdomen. Possibly related to an underlying enteritis. No portal gas is seen. No obstruction or free air. Solid organ silhouettes do not appear enlarged. No calcifications are seen to suggest david l or ureteral calculi. Scattered changes of arthritis are seen in the spine. XR/XR acute abdomen series 16100 IMPRESSION: No acute pulmonary disease. No bowel obstruction or free air is seen. If there is concern for an acute intr a-abdominal process CT is imaging modality of choice for further evaluation if clinically needed.
--- NOTE | 2020-02-10 17:11 | CT_ITS ---
WS: [id number] EXAM: CT OF THE ABDOMEN AND PELVIS WITH CONTRAST DATE OF EXAMINATION: 02/10/2020, 1815 hours COMPARISON: Prior CT from 11/30/2019 HISTORY: 49 years old with abdominal pain. History of diverticulitis. TECHNIQUE: Transaxial computed tomography images obtained through the abdomen and pelvis utilizing 95 mL of Omni paque 300 IV contrast with images acquired in the portal phase. Images viewed in multiple windows wit h reconstructions. DLP: 1070.[address] scans at [facility] use at least one of these dose optimization techniques: automat ed exposure control; mA and/or kV adjustment per patient size (includes targeted exams where dose is matched to clinical indication); or iterative reconstruction. FINDINGS: The lung bases are clear other than minimal dependent atelectasis. Calcified granuloma left lower lob e. No effusion or pneumothorax. Heart size is normal. The aorta is normal in caliber and opacifies no rmally. The liver is normal in attenuation and enhancement. The gallbladder is markedly distended. There is a stone in the neck of the gallbladder. No pericholec ystic inflammatory changes are noted. No biliary dilatation is seen. The portal vein is patent. Spleen is normal in size and enhancement. Accessory splenule is seen along the ventral margin of the spleen. Pancreas is normal in appearance. Adrenal glands are normal in appearance. Both kidneys are normal in size and enhancement. No definite mass lesion is seen. No findings of david l or ureteral calculus noted. No obstructive uropathy. The stomach is full of ingested material other vidales unremarkable. Small bowel proximally is normal in caliber. There are inflammatory changes in the small bowel in the periumbilical region with what appears to be an interloop fistula and abscess. It appears to have a communication with the sigmoid colon. Droplets of free air are seen consistent wit h microperforation. Surrounding edema in the mesentery is demonstrated. This area of inflammation was also present on prior imaging. I'm not convinced this is a tumor mass such as carcinoid. Small bowel beyond this region is normal in caliber. No gross free air is seen. The colon is with the most part normal in caliber. Slight thickening of the sigmoid colon wall is see n. Diverticulosis changes are demonstrated. Normal appendix. No intraperitoneal or retroperitoneal adenopathy or mass is identified. No umbilical hernia is seen. No inguinal hernia is seen. The prostate is normal in size. The bladder is normal in appearance. Scattered degenerative changes are seen in the spine. Compression fracture deformity T12 considered c hronic. CT/CT abdomen pelvis w con* [id number] IMPRESSION: Imaging findings felt to represent an inflammatory process in the abdomen invol ving the small bowel with what appears to be a tiny interloop abscess between t he sigmoid colon and several loops of small bowel with findings of microperfora tion. Surrounding edema seen. No gross free air is seen. No drainable fluid col lection seen. Thickened sigmoid colon most likely related to some concomitant diverticulitis associated with is interloop abscess and fistula formation. General surgeon dong whitaker recommended.
--- NOTE | 2020-02-10 17:14 | ED_ITS ---
HPI - Abdominal Pain General: Chief Complaint: Abdominal Pain Stated Complaint: abd pain Time Seen by Provider: 02/10/20 17:04 Source: patient Mode of arrival: ambulatory Limitations: no limitations History of Present Illness: HPI narrative: Dandre is a nice 49-year-old male who comes in complaining of abdominal pain. Symptoms began this morning and have gotten progressively worse as the day has gone on. Complaints of pain in the lower part of his abdomen that is moved up toward his chest. He denies any chest pain or shortness of breath. He denies any nausea vomiting, denies fever, denies diarrhea or constipation. He denies any urinary symptoms or black or tarry stools or melena. Patient states he has had similar pain in the past when he had diverticulitis. He states that he had a perforation but was localized and he was only on antibiotics for this and did not have to have surgery. Currently any type of movement makes his pain worse. Staying and rest makes it better. Associated Symptoms: Denies chills, coffee ground emesis, constipation, GI cramping, diarrhea, dysuria, fever(s), heartburn, hematochezia, hematuria, hematemesis, melena, nausea, syncope and vomiting Review of Systems Const: Denies: fever(s), chills, body aches, fatigue, malaise or diaphoresis Eyes: Denies: change in vision, blurry vision, photophobia, eye discomfort, eye discharge or eye redness ENMT: Denies: throat pain, odynophagia, hoarseness, swelling of lips/tongue, ear or mastoid pain, ear discharge, change in hearing or nasal discharge Card: Denies: chest pain, palpitations, irregular heart rhythm, edema, lightheadedness, syncope, pre-syncope, dyspnea on exertion or orthopnea Resp: Denies: dyspnea, productive cough, non-productive cough, wheezing, hemoptysis or chest congestion GI: Reports: abdominal pain; Denies: nausea, vomiting, hematemesis, coffee ground emesis, heartburn, diarrhea, constipation, GI cramping, hematochezia or melena : Denies: flank pain, dysuria, urinary frequency, urinary urgency or hematuria Musc: Denies: neck pain, back pain, extremity pain, extremity swelling, joint pain, joint swelling, joint redness, joint warmth or joint stiffness Skin/Breast: Denies: rash, pruritus, erythema or skin tenderness Neuro: Denies: headache(s), numbness in extremities, weakness in extremities, sensory changes, lack of coordination, difficulty walking, dizziness, vertigo, confusion, Slurred speech present or seizure-like activity Venkata/Lymph: Denies: easy bruising, easy bleeding, petechiae, purpura or enlarged lymph nodes All/Imm: Denies: urticaria, throat swelling, tongue swelling, facial swelling or acute wheezing PFSH ED PFSH: Medical History Hypertension Perforated diverticulum of large intestine Surgical History No history of previous surgery Social History Smoking and tobacco status: current every day smoker cigarettes Packs smoked per day: 1 Years cigarettes smoked: 35 Alcohol intake: current Alcohol intake frequency: 3 or more drinks per day Alcohol type: beer Physical Exam Const: COMMON NORMALS: no acute distress, patient oriented x3, no limitations, healthy appearing and well nourished GENERAL APPEARANCE: cooperative, well kempt and well developed HENMT: COMMON NORMALS: normocephalic, atraumatic, external ears normal, EAC's normal and Normal external nose present HEAD & SCALP: normal to inspection, normocephalic and atraumatic FACE & SINUS: normal facial exam and face symmetric NOSE: Normal external nose present and Normal nares present EXTERNAL EAR: Yes external ears normal EXTERNAL AUDITORY CANAL: EAC's normal MOUTH: Normal oral and palatal mucosa present, lip normal and tongue normal Eye: COMMON NORMALS: Equal, round and reactive pupils present and conjunctivae normal GENERAL EYE: appearance normal, both eyes and all related structures ALIGNMENT: Yes alignment normal PERIORBITAL: periorbital findings normal EYELID: eyelids normal CONJUNCTIVA: Yes conjunctivae normal SCLERA: sclerae normal PUPIL: Yes Equal, round and reactive pupils present Neck/C-Spine: COMMON NORMALS: full ROM, no lymphadenopathy, supple, no meningeal signs and no JVD GENERAL: Yes normal visual inspection and Yes trachea midline Chest: COMMONS NORMALS: normal inspection of the chest and normal palpation of entire chest wall Resp: COMMON NORMALS: normal respiratory effort, No retractions, No use of accessory muscles and clear to auscultation bilaterally EFFORT & INSPECTION: Yes able to speak in complete sentences and Yes symmetric chest movement AUSCULTATION: clear to auscultation bilaterally, no crackles, no rales, no rhonchi and no wheezes Cardio: COMMON NORMALS: no JVD, regular rate, regular rhythm, S1 normal heart sound present and S2 normal heart sound present RATE: regular rate RHYTHM: regular rhythm HEART SOUNDS: S1 normal heart sound present, S2 normal heart sound present, no click, no gallops, no murmurs, no rubs and abnormal split S2 GI: COMMON NORMALS: Soft to palpation and No hepatosplenomegaly present PALPATION: Yes Soft to palpation, Yes Tenderness to palpation present (GI) (Severe diffusely with tenderness to light percussion), No Guarding due to palpation present (GI), No Rigid due to palpation, Yes No hepatosplenomegaly present, No Hernia present, No Palpable mass present and No Pulsatile mass present : COMMON NORMALS: Yes no CVA tenderness BLADDER/KIDNEY EXAM: Yes no CVA tenderness Back/Pelvis: COMMON NORMALS: no CVA tenderness, thoracic and lumbar spine normal to inspection, no thoracic nor lumbar tenderness and thoraco-lumbar ROM normal Extremity: COMMON NORMALS: normal to inspection, full ROM, capillary refill normal, no joint enlargement, no clubbing, cyanosis or edema and no calf tenderness Neuro: COMMON NORMALS: patient oriented x3, CN's II-XII intact bilaterally, moves all extremities, no focal motor deficits and no sensory deficits noted MENINGEAL SIGNS: Yes no meningeal signs SPEECH: speech normal Psych: COMMON NORMALS: mental status grossly normal, Normal thought process present, cooperative, normal affect, speech normal and activity/motor behavior normal APPEARANCE: Yes well kempt SPEECH: Yes normal speech THOUGHT PROCESS: Normal thought process present Skin: COMMON NORMALS: no rashes or lesions noted, turgor normal, no jaundice, no petechiae and no mottling GENERAL SKIN EXAM: no rashes or lesions noted and turgor normal Course Vital Signs: Vital signs: Vital Signs Temperature 98.8 F 02/10/20 16:21 Pulse Rate 84 02/10/20 21:14 Respiratory Rate 16 02/10/20 21:06 Blood Pressure 156/104 02/10/20 21:06 Pulse Oximetry 95 02/10/20 21:14 MDM - Abdominal Pain MDM Narrative: Medical decision making narrative: Mr. Chaudhary is a nice 49-year-old male who comes in complaining abdominal pain. CT scan shows that he has a abscess possible fistula between the sigmoid colon and loops of small bowel. Patient has significant tenderness on palpation but no signs of peritonitis. I have reviewed the case in full with Dr. Grande and he is agreeable to admit and Dr. Monroy will consult. Differential Diagnosis: Differential diagnosis abdominal pain: Likely abdomin al pain, acute appendicitis, constipation, diverticulitis, gastroenteritis, pancreatitis and small bowel obstruction Medical Records: Attestation: I reviewed the patient's medical records. Lab Data: Attestation: I reviewed the patient's lab results. Labs: Lab Results 02/10/20 02/10/20 02/10/20 Range/Units 17:14 17:14 17:14 WBC 16.7 H (4.0-10.0) 10^3/ uL RBC 5.30 (4.1-5.3) 10^6/u L Hgb 16.2 (11.7-16.6) g/dL Hct 49.4 (42.0-52.0) % MCV 93.2 (80-94) fL MCH 30.6 (28.0-34.0) pg MCHC 32.8 (30.0-36.0) g/dL RDW 13.3 (12.1-15.1) % Plt Count 231 (130-400) 10^3/c mm MPV 12.6 H (7.4-10.4) fL Neut % (Auto) 85.7 % Lymph % (Auto) 7.5 % [place] % (Auto) 5.6 % Eos % (Auto) 0.6 % Baso % (Auto) 0.2 % Neut # (Auto) 14.29 H (1.8-7.7) 10^3/u L Lymph # (Auto) 1.3 (0.8-4.8) 10^3/u L [place] # (Auto) 0.9 (0.2-0.9) 10^3/u L Eos # (Auto) 0.1 (0.0-0.8) 10^3/u L Baso # (Auto) 0.0 (0.0-0.1) 10^3/u L Nucleated RBC % (a uto) 0 % Nucleated RBCs # 0.0 /100WBC Sodium 138 (136-145) mmol/L Potassium 4.1 (3.5-5.1) mmol/L Chloride 101 (98-107) mmol/L Carbon Dioxide 28 (22-29) mmol/L Anion Gap 13.1 (5-19) BUN 7 (6-20) mg/dL Creatinine 0.8 (0.7-1.2) mg/dL GFR Calculation 102.3 (90-130) mL/min Glucose 80 (65-115) mg/dL Calculated Osmolal ity 281 L (285-295) mOsm/k g Lactic Acid 1.3 (0.5-2.2) mmol/L Calcium 9.4 (8.5-10.5) mg/dL Total Bilirubin 0.5 (0.15-1.2) mg/dL AST 26 (0-40) U/L ALT 21 (0-41) U/L Alkaline Phosphata se 120 (40-130) IU/L Total Protein 7.3 (6.6-8.7) g/dL Albumin 4.3 (3.5-5.2) g/dL Globulin 3.0 (1.3-4.6) g/dL Lipase 22 (13-60) U/L Urine Color (Yellow) Urine Appearance (CLEAR) Urine pH (5-7) Ur Specific Gravit y (1.005-1.030) Urine Protein (Negative) Urine Glucose (UA) (Normal) Urine Ketones (Negative) Urine Blood (Negative) Urine Nitrate (Negative) Urine Bilirubin (NEGATIVE) Urine Urobilinogen (Negative) mg/dL Ur Leukocyte Carito ase (Negative) 02/10/20 Range/Units 17:18 WBC (4.0-10.0) 10^3/ uL RBC (4.1-5.3) 10^6/u L Hgb (11.7-16.6) g/dL Hct (42.0-52.0) % MCV (80-94) fL MCH (28.0-34.0) pg MCHC (30.0-36.0) g/dL RDW (12.1-15.1) % Plt Count (130-400) 10^3/c mm MPV (7.4-10.4) fL Neut % (Auto) % Lymph % (Auto) % [place] % (Auto) % Eos % (Auto) % Baso % (Auto) % Neut # (Auto) (1.8-7.7) 10^3/u L Lymph # (Auto) (0.8-4.8) 10^3/u L [place] # (Auto) (0.2-0.9) 10^3/u L Eos # (Auto) (0.0-0.8) 10^3/u L Baso # (Auto) (0.0-0.1) 10^3/u L Nucleated RBC % (a uto) % Nucleated RBCs # /100WBC Sodium (136-145) mmol/L Potassium (3.5-5.1) mmol/L Chloride (98-107) mmol/L Carbon Dioxide (22-29) mmol/L Anion Gap (5-19) BUN (6-20) mg/dL Creatinine (0.7-1.2) mg/dL GFR Calculation (90-130) mL/min Glucose (65-115) mg/dL Calculated Osmolal ity (285-295) mOsm/k g Lactic Acid (0.5-2.2) mmol/L Calcium (8.5-10.5) mg/dL Total Bilirubin (0.15-1.2) mg/dL AST (0-40) U/L ALT (0-41) U/L Alkaline Phosphata se (40-130) IU/L Total Protein (6.6-8.7) g/dL Albumin (3.5-5.2) g/dL Globulin (1.3-4.6) g/dL Lipase (13-60) U/L Urine Color Yellow (Yellow) Urine Appearance Clear (CLEAR) Urine pH 6 (5-7) Ur Specific Gravit y 1.015 (1.005-1.030) Urine Protein Neg (Negative) Urine Glucose (UA) Norm (Normal) Urine Ketones Negative (Negative) Urine Blood Neg (Negative) Urine Nitrate Negative (Negative) Urine Bilirubin Neg (NEGATIVE) Urine Urobilinogen Norm (Negative) mg/dL Ur Leukocyte Carito ase Negative (Negative) Discharge Plan Discharge Patient Disposition: Admitted As Inpatient Admit Provider: Fauzia Renae Clinical Impression: Diverticulitis of intestine with perforation and abscess Condition: Stable Coding Level of Care Code ED Crowd Controller for [facility] Fwd Exam Comprehensive
[2020-02-10 17:19] LABS: Basophils % 0.2 %; Eosinophils # 0.1 10^3/uL (0.0-0.8); Eosinophils % 0.6 %; Hematocrit 49.4 % (42.0-52.0); Hemoglobin 16.2 g/dL (11.7-16.6); Lymphocytes # 1.3 10^3/uL (0.8-4.8); Lymphocytes % 7.5 %; Mean Corpuscular HGB Conc 32.8 g/dL (30.0-36.0); Mean Corpuscular Hemoglobin 30.6 pg (28.0-34.0); Mean Corpuscular Volume 93.2 fL (80-94); Mean Platelet Volume 12.6 fL (7.4-10.4); Monocytes # 0.9 10^3/uL (0.2-0.9); Monocytes % 5.6 %; Neutrophils # 14.29 10^3/uL (1.8-7.7); Neutrophils % 85.7 %; Nucleated Red Blood Cells % 0 %; Platelet Count 231 10^3/cmm (130-400); Red Cell Distribution Width 13.3 % (12.1-15.1); White Blood Count 16.7 10^3/uL (4.0-10.0)
[2020-02-10 17:36] LABS: Add Urine Microscopic? NO
[2020-02-10 17:38] LABS: Alanine Aminotransferase 21 U/L (0-41); Albumin Level 4.3 g/dL (3.5-5.2); Alkaline Phosphatase 120 IU/L (40-130); Anion Gap 13.1 (5-19); Aspartate Amino Transferase 26 U/L (0-40); Blood Urea Nitrogen 7 mg/dL (6-20); Calcium 9.4 mg/dL (8.5-10.5); Carbon Dioxide 28 mmol/L (22-29); Chloride 101 mmol/L (98-107); Glomerular Filtration Rate 102.3 mL/min (90-130); Glucose 80 mg/dL (65-115); Lipase 22 U/L (13-60); Osmolality Calculated 281 mOsm/kg (285-295); Potassium 4.1 mmol/L (3.5-5.1); Sodium 138 mmol/L (136-145); Total Bilirubin 0.5 mg/dL (0.15-1.2); Total Protein 7.3 g/dL (6.6-8.7)
[2020-02-10 17:39] LABS: Lactic Sepsis W/Reflex 1.3 mmol/L (0.5-2.2)
[2020-02-10] MEDS: ondansetron 2 mg/ML SDV 2 mL 4 MG IVP (17:40)
[2020-02-10] MEDS: HYDROmorphone 1 mg/mL INJ 1 mL IVP (17:40)
[2020-02-10] MEDS: sodium chloride 0.9% 1,000 ML 999 ML IV (17:41)
[2020-02-10] MEDS: sodium chloride 0.9% 1,000 ML 100 ML IV (17:43)
[2020-02-10 17:50] LABS: Bilirubin Urine Neg (NEGATIVE); Blood Urine Neg (Negative); Glucose Urine UA Norm (Normal); Ketones Urine Negative (Negative); Leukocyte Esterase Urine Negative (Negative); Nitrate Urine Negative (Negative); Protein Urine Neg (Negative); Specific Gravity, Urine 1.015 (1.005-1.030); Urine Appearance Clear (CLEAR); Urine Color Yellow (Yellow); Urobilinogen Urine Norm (Negative); pH Urine 6 (5-7)
[2020-02-10] MEDS: iohexol 300 mg/mL 100 mL Btl IV (18:19)
--- NOTE | 2020-02-10 20:06 | PM.CONSULT ---
Providers/Reason For Consult Consulting Physican/Specialty*: Hospitalist service/Dr. Renae Reason for Consult*: Comanagement for hypertension Attending Physician: Fauzia Renae MD History of Present Illness History of Present Illness Dandre Chaudhary is a 49 year old male who carries history of essential hypertension, was prescribed amlodipine in remote past which patient has not been taking for a long time came in today for abdominal pain. Patient is stating that about 2 months ago he experienced left lower quadrant pain, he was diagnosed with diverticulitis, with fluids and antibiotics his symptoms resolved and he was asked to follow-up with Dr. Villareal for colonoscopy which he failed to do so. Today he came in for worsening abdominal pain, he is denying nausea vomiting diarrhea, no bright bleed per rectum. Diagnosis in the ER revealed microperforation and inflammatory process involving small bowel without drainable fluid collection. Hospital service has been requested for management of hypertension. Patient is denying bright bleed per rectum, history of Crohn disease or ulcerative colitis, he is denying family history of GI cancer or inflammatory bowel disease. He is very active for his age, smokes 1 pack/day, drinks 3-4 beers on daily basis. Cage 0. At the time of my evaluation patient was lying comfortably in his bed systolic blood pressure 129, diastolic 89 mmHg, I do not have any EKG for now Normal lactic acid, leukocytosis noted Review of Systems Const: Reports: body aches and fatigue; Denies: fever(s) or chills Eyes: Denies: change in vision ENMT: Denies: throat pain Card: Denies: chest pain Resp: Denies: dyspnea GI: Reports: abdominal pain and constipation; Denies: nausea or vomiting : Denies: flank pain Musc: Denies: neck pain Skin/Breast: Denies: rash Neuro: Denies: headache(s) Psych: Denies: anxiety Endo: Denies: polyuria Venkata/Lymph: Denies: easy bruising All/Imm: Denies: urticaria Meds/Allergies Home Medications and Allergies Home Medications Medication Instructions Recorded Confirmed Last Taken Type amlodipine See Rx Instructions .ROUTE .COMPLEX 02/10/20 02/10/20 Unknown History ibuprofen 400 mg PO PRN 02/10/20 02/10/20 Unknown History Allergies Allergy/AdvReac Type Severity Reaction Status Date / Time No Known Allergies Allergy Verified 02/10/20 22:14 Current Medications Current Medications Generic Name Dose Route Start Last Admin Trade Name Freq PRN Reason Stop Dose Admin Sodium Chloride 1,000 mls @ 100 mls/hr 02/10/20 17:15 02/10/20 17:43 Sodium Chloride 0.9% IV 100 mls/hr .Q10H JABIER Administration PFSH Acute PFSH: Medical History Hypertension Perforated diverticulum of large intestine Surgical History No history of previous surgery Social History Smoking and tobacco status: current every day smoker cigarettes Packs smoked per day: 1 Years cigarettes smoked: 35 Alcohol intake: current Alcohol intake frequency: 3 or more drinks per day Alcohol type: beer Vitals/I&O/Wt Last Vital Signs Temp 98.8 F 02/10/20 16:21 Pulse 86 02/10/20 17:15 Resp 18 02/10/20 17:40 BP 147/91 02/10/20 17:15 Pulse Ox 98 02/10/20 17:40 Weight last 48 hrs Weight 90.718 kg Physical Exam Narrative: EXAM NARRATIVE: Very pleasant male sitting comfortably in his bed 129/89 mmHg blood pressure Patient is not showing any active signs of respiratory distress S1, S2 no signs of heart failure or murmur Abdomen distended, bowel sounds sluggish, tenderness to deep palpation around the periumbilical and left lower quadrant area EOMI, PERRLA Appropriate mood and affect No neurological deficit No lower extremity edema gangrene or ulcer A&P Assessment and plan (1) Diverticulitis of intestine with perforation and abscess: Status: Acute Qualifiers: Diverticulitis bleeding: without bleeding Diverticulitis site: large intestine Qualified Code(s): K57.20 - Diverticulitis of large intestine with perforation and abscess without bleeding (2) Perforated diverticulum of large intestine: Status: Acute (3) Hypertension: Status: Acute Qualifiers: Hypertension type: essential hypertension Qualified Code(s): I10 - Essential (primary) hypertension Additional A&P Information Essential hypertension Current blood pressure is within normal range, I am suspecting hypertension secondary to abdominal pain, for hypertensive episodes I would use hydralazine IV on PRN basis for now. I do not see any signs of cushingoid syndrome, hyperthyroidism I would avoid lisinopril in case he would require any surgical intervention which can cause vasoplegic shock Patient was counseled on smoking cessation and abstinence from alcohol which can contribute to hypertension Would recommend BREONNA inhibitor or amlodipine at the time of discharge Diverticulitis of large intestine with micro perforation Management as per surgery Currently patient is on ciprofloxacin and Flagyl along IV fluids N.p.o. Patient is 49 years old and is suffering from second episode of diverticulitis denying signs of bright bleed per rectum history of inflammatory bowel disease, GI cancer, he will need diagnostic colonoscopy and histopathological diagnosis for the etiology of diverticulitis DVT prophylaxis to be avoided in case he would require surgical intervention Would add SCDs N.p.o. Consult Attestations Medical Necessity Statement: As per surgical team Time Spent in Patient Care: (>than 50% of time spent in counselling and/or direct pt care on unit). 40mins Coding Level of Care Code Acute Motor Rebuilder for [facility] Fwd Diagnoses Diverticulitis of intestine with perforation and abscess K57.20 Diverticulitis bleeding: without bleeding Diverticulitis site: large intestine Perforated diverticulum of large intestine K57.20 Hypertension I10 Hypertension type: essential hypertension
--- NOTE | 2020-02-10 21:01 | PC.NURSE ---
REPORT CALLED TO WAI RENEE
[2020-02-10] MEDS: piperacillin-tazobactam 3.375 GM in sodium chloride 0.9% (plus) 50 ML IV (21:03)
[2020-02-10] MEDS: dextrose 5%-sod chloride 0.45% 1,000 ML 100 ML IV (21:29)
[2020-02-10] MEDS: ciprofloxacin 400 MG/200 ML PREMIX 200 MG IV (21:29)
--- NOTE | 2020-02-10 21:56 | P.HP_ITS ---
Providers/Chief Complaint Admitting Physician: Fauzia Renae MD Chief Complaint: abd pain History of Present Illness Chief Complaint: Abdominal pain History of present illness: Mr Dandre Chaudhary is a 49 year old male With history of hypertension, presents to the emergency department with worsening abdominal pain that started today, michael bianchi reports that the pain mostly at around the center of his abdomen at the periumbilical area and towards the left side, he reports that he has been admitted 2 months ago to the hospital with diagnosis of complicated diverticulitis of the sigmoid colon and received antibiotics with the plan to f ollow-up with Dr. Villareal on the of this month at his office. Denies history of IBD or colon cancer and does not appear that he had any colonoscopies before. Patient was evaluated in the emergency department was found to have leukocytosis of 16,000+ and a CT scan that was done; CT scan of the abdomen and pelvis showed: FINDINGS: The lung bases are clear other than minimal dependent atelectasis. Calcified granuloma left lower lobe. No effusion or pneumothorax. Heart size is normal. The aorta is normal in caliber and opacifies normally. The liver is normal in attenuation and enhancement. The gallbladder is markedly distended. There is a stone in the neck of the gallbladder. No pericholecystic inflammatory changes are noted. No biliary dilatation is seen. The portal vein is patent. Spleen is normal in size and enhancement. Accessory splenule is seen along the ventral margin of the spleen. Pancreas is normal in appearance. Adrenal glands are normal in appearance. Both kidneys are normal in size and enhancement. No definite mass lesion is seen. No findings of renal or ureteral calculus noted. No obstructive uropathy. The stomach is full of ingested material otherwise unremarkable. Small bowel proximally is normal in caliber. There are inflammatory changes in the small bowel in the periumbilical region with what appears to be an interloop fistula and abscess. It appears to have a communication with the sigmoid colon. Droplets of free air are seen consistent with microperforation. Surrounding edema in the mesentery is demonstrated. This area of inflammation was also present on prior imaging. I'm not convinced this is a tumor mass such as carcinoid. Small bowel beyond this region is normal in caliber. No gross free air is seen. The colon is with the most part normal in caliber. Slight thickening of the sigmoid colon wall is seen. Diverticulosis changes are demonstrated. Normal appendix. No intraperitoneal or retroperitoneal adenopathy or mass is identified. No umbilical hernia is seen. No inguinal hernia is seen. The prostate is normal in size. The bladder is normal in appearance. Scattered degenerative changes are seen in the spine. Compression fracture deformity T12 considered chronic. CT/CT abdomen pelvis w con* [id number] IMPRESSION: Imaging findings felt to represent an inflammatory process in the abdomen involving the small bowel with what appears to be a tiny interloop abscess between the sigmoid colon and several loops of small bowel with findings of microperforation. Surrounding edema seen. No gross free air is seen. No drainable fluid collection seen. Thickened sigmoid colon most likely related to some concomitant diverticulitis associated with is interloop abscess and fistula formation. General surgeon e valuation recommended. General surgery was consulted for further evaluation and potential management Review of Systems General: Reports: 10 or more systems reviewed and unremarkable except in HPI and below Medications/Allergies Home Medications Medication Instructions Recorded Confirmed Last Taken Type amlodipine See Rx Instructions .ROUTE .COMPLEX 02/10/20 02/10/20 Unknown History ibuprofen 400 mg PO PRN 02/10/20 02/10/20 Unknown History Allergies Allergy/AdvReac Type Severity Reaction Status Date / Time No Known Allergies Allergy Verified 02/10/20 22:14 PFSH Acute PFSH: Medical History Hypertension Perforated diverticulum of large intestine Surgical History No history of previous surgery Social History Smoking and tobacco status: current every day smoker cigarettes Packs smoked per day: 1 Years cigarettes smoked: 35 Alcohol intake: current Alcohol intake frequency: 3 or more drinks per day Alcohol type: beer Vitals/I&O/Wt Last Vital Signs Temp 98.8 F 02/10/20 21:31 Pulse 82 02/10/20 21:31 Resp 14 02/10/20 21:31 BP 143/89 02/10/20 21:31 Pulse Ox 94 02/10/20 21:31 02/10/20 02/10/20 02/10/20 06:59 14:59 22:59 Intake Total 0 / 0 Balance 0 / 0 Weight last 48 hrs Weight 200 lb Physical Exam Narrative: EXAM NARRATIVE: Patient is conscious alert oriented X3 BMI 30.4 Head and neck examination PERRLA no masses no cervical lymphadenopathy no jaundice Cardiac examination audible S1-S2 no murmurs no gallops no arrhythmias Chest is clear bilateral,abscence of Rhonchi or wheezes,no surgical emphysema Abdomen tender the periumbilical region right lower quadrant and left lower quadrant nondistended soft no organomegaly guarding or rigidity/no signs of peritonitis Extremities no cyanosis no clubbing no edema Data : 02/12/20 07:06 02/12/20 07:06 A&P Assessment and plan (1) Diverticulitis of intestine with perforation and abscess: After thorough history physical examination and reviewing the chart and images with my personal interpretation, will plan to have the patient on IV antimicrobial therapy in the form of ciprofloxacin and Flagyl. Repeated physical examination There is a concern that the patient may have an underlying IBD particularly Crohn's disease yet likely it is a complicated form of sigmoid colon diverticulitis with involvement of close by small bowel loops. We will follow on morning labs include CPR, ESR At some point patient should benefit from a colonoscopy I do appreciate hospitalist service input Assurance and education All questions have been answered and all concerns have been addressed to patient's satisfaction. Status: Acute Qualifiers: Diverticulitis bleeding: without bleeding Diverticulitis site: large intestine Qualified Code(s): K57.20 - Diverticulitis of large intestine with perforation and abscess without bleeding Attestations Medical Necessity Statement*: Medical necessity care is expected to cross 2 midnights Time Spent in Patient Care: (>than 50% of time spent in counselling and/or direct pt care on unit) . Coding Level of Care Code Acute Compliance Program Manager for [facility] Fwd Diagnoses Diverticulitis of intestine with perforation and abscess K57.20 Diverticulitis bleeding: without bleeding Diverticulitis site: large intestine
[2020-02-10] MEDS: metroNIDAZOLE IV 500 MG/100 ML PREMIX 100 MG IV (22:58)
[2020-02-10 23:34] LABS: Thyroid Stimulating Hormone 1.83 uIU/mL (0.27-4.20)
[2020-02-11] VITALS (10 sets, daily range): BP systolic 119–145; BP diastolic 72–81; PULSE 62–76; RESP 14–22; TEMP 37–37.4; O2SAT 92–95
[2020-02-11 01:25] LABS: Amphetamines Screen Urine Negative (Negative); Barbiturates Screen Urine Negative (Negative); Benzodiazepines Screen Urine Negative (Negative); Cocaine Screen Urine Negative (Negative); Opiate Screen Urine Negative (Negative); PCP Screen Urine Negative (Negative); THC Screen Urine Negative (Negative)
[2020-02-11 05:01] LABS: Basophils % 0.1 %; Eosinophils # 0.1 10^3/uL (0.0-0.8); Eosinophils % 0.6 %; Hematocrit 44.8 % (42.0-52.0); Hemoglobin 14.6 g/dL (11.7-16.6); Lymphocytes # 1.1 10^3/uL (0.8-4.8); Lymphocytes % 8.7 %; Mean Corpuscular HGB Conc 32.6 g/dL (30.0-36.0); Mean Corpuscular Hemoglobin 31.1 pg (28.0-34.0); Mean Corpuscular Volume 95.3 fL (80-94); Mean Platelet Volume 13.8 fL (7.4-10.4); Monocytes # 0.9 10^3/uL (0.2-0.9); Monocytes % 6.9 %; Neutrophils % 83.4 %; Nucleated Red Blood Cells % 0 %; Platelet Count 148 10^3/cmm (130-400); Red Cell Distribution Width 13.6 % (12.1-15.1); White Blood Count 12.5 10^3/uL (4.0-10.0)
[2020-02-11 05:26] LABS: Anion Gap 12.8 (5-19); Blood Urea Nitrogen 6 mg/dL (6-20); Calcium 7.6 mg/dL (8.5-10.5); Carbon Dioxide 22 mmol/L (22-29); Chloride 105 mmol/L (98-107); Glomerular Filtration Rate 119.4 mL/min (90-130); Glucose 125 mg/dL (65-115); Osmolality Calculated 279 mOsm/kg (285-295); Potassium 3.8 mmol/L (3.5-5.1); Sodium 136 mmol/L (136-145)
[2020-02-11 05:48] LABS: Slide Review Slide Review Perform
[2020-02-11] MEDS: metroNIDAZOLE IV 500 MG/100 ML PREMIX 100 MG IV ×3 (06:01→23:06)
[2020-02-11] MEDS: morphine 4 mg/mL SDV 1 mL IVP ×3 (06:03→20:05)
[2020-02-11] MEDS: ciprofloxacin 400 MG/200 ML PREMIX 200 MG IV ×2 (08:49→20:58)
[2020-02-11] MEDS: dextrose 5%-sod chloride 0.45% 1,000 ML 100 ML IV ×2 (08:49→18:10)
--- NOTE | 2020-02-11 08:57 | P.PN_ITS ---
Subjective Subjective: Interval history: Overall feels better No acute events overnight Vitals/I&O/Wt Last Vital Signs Temp 99.4 F 02/11/20 07:20 Pulse 70 02/11/20 07:20 Resp 18 02/11/20 07:20 BP 119/72 02/11/20 07:20 Pulse Ox 94 02/11/20 07:20 02/10/20 02/11/20 02/11/20 22:59 06:59 14:59 Intake Total 200 / 200 100 / 300 1000 / 1000 Output Total 450 / 450 Balance 200 / 200 -350 / -150 1000 / 1000 Weight last 48 hrs Weight 200 lb Physical Exam Narrative: EXAM NARRATIVE: Patient is conscious alert oriented X3 BMI 30.4 Head and neck examination PERRLA no masses no cervical lymphadenopathy no jaundice Abdomen less tender at the periumbilical region right lower quadrant and left lower quadrant nondistended soft no organomegaly guarding or rigidity/no signs of peritonitis. Extremities no cyanosis no clubbing no edema Data : 02/11/20 04:30 02/11/20 04:30 A&P Assessment and plan (1) Diverticulitis of intestine with perforation and abscess: Will continue IVF and IV Antibiotics I will discuus further longer with Dr Costello Hospitalist service Parentral antibiotics as an out patient with PICC line placement Still concerned about potential inflammatory bowel disease component will monitor the patient closely At some point patient should benefit from a colonoscopy I do appreciate hospitalist service input Assurance and education All questions have been answered and all concerns have been addressed to patient's satisfaction. Status: Acute Qualifiers: Diverticulitis bleeding: without bleeding Diverticulitis site: large intestine Qualified Code(s): K57.20 - Diverticulitis of large intestine with perforation and abscess without bleeding Attestations Medical Necessity Statement*: Medical necessity care is expected to cross 2 midnights Time Spent in Patient Care: (>than 50% of time spent in counselling and/or direct pt care on unit) . Coding Level of Care Code Acute Machine Operator Transplanter for [facility] Fwd Diagnoses Diverticulitis of intestine with perforation and abscess K57.20 Diverticulitis bleeding: without bleeding Diverticulitis site: large intestine
--- NOTE | 2020-02-11 13:52 | PC.CHAP ---
Pastoral Care Encounter/Spiritual Assessment Type of Contact [] Declined operations vocational instructor visit [] Patient/Family/Request visit [] Outpatient visit [] Follow-up visit [] Physician referral [] Code/Alert [X] Routine visit [] Staff referral [] Actively dying [] Patient sleeping [] Family support [] [] Out of room [] Palliative care [] [] Receiving care in room [] Pre-surgical visit [] Trauma [] Long length of stay [] ICU visit [] Other: Relational/Emotional Strength [] Patient feels connected with others/family/visitors/staff [] Distress [] Loneliness/isolation [] Abandonment Spirituality of Patient [] Person of Nguyen [] Attends Nondenominational of their Nguyen [] Believes in Prayer [] Reads Bible or Muslim materials [] There are Spiritual issues to be addressed Door To Door Selling Distributor Interventions [] Prayer [] Active listening [] Non-anxious presence [] Spiritual/emotional support [] Crisis/trauma care [] Spiritual counseling [] Bereavement support [] Provided bereavement packet [] Provided Bible/devotional materials [] Provided toy/stuffed animal, coloring book to patient or family member [] Provided Communion [] Anointing/[place] [] Salvation [] Completed spiritual assessment [] Other: Impact on Illness or Injury [] Angry [] Fearful [] Anxious [] Often cries [] Exhaustion [] Unable to work [] Unable to attend synagogue [] Unable to walk/stand [] Unable to read [] Unable to drive [] Unable to eat/drink [] Unable to sleep [] Unable to be with family [] Patient intubated [] Other: Summary Time spent with patient
--- NOTE | 2020-02-11 16:10 | PC.RESP ---
SMOKING CESSATION INFORMATION SENT TO PATIENT.
--- NOTE | 2020-02-11 17:31 | PM.PN ---
Subjective Subjective: Interval history: Overnight labs and H&P reviewed. Patiemt is currently comfortbale, no acute overnight events. Medications: Reviewed: Yes Vitals/I&O/Wt Last Vital Signs Temp 98.7 F 02/11/20 15:34 Pulse 67 02/11/20 16:12 Resp 18 02/11/20 15:34 BP 122/80 02/11/20 15:34 Pulse Ox 92 02/11/20 16:12 02/11/20 02/11/20 02/11/20 06:59 14:59 22:59 Intake Total 100 / 300 1100 / 1100 Output Total 450 / 450 1200 / 1200 Balance -350 / -150 -100 / -100 Weight last 48 hrs Weight 90.718 kg Physical Exam Narrative: EXAM NARRATIVE: GEN: Awake, alert and oriented, no acute distress CVS: S1S2 N RS: CTA B/L Abd: Soft, nt/nd , bs+ ARTS AND CRAFTS INSTRUCTOR: no focal neuro deficits Data : 02/11/20 04:30 02/11/20 04:30 A&P Assessment and plan (1) Diverticulitis of intestine with perforation and abscess: Status: Acute Qualifiers: Diverticulitis bleeding: without bleeding Diverticulitis site: large intestine Qualified Code(s): K57.20 - Diverticulitis of large intestine with perforation and abscess without bleeding (2) Hypertension: Status: Acute Qualifiers: Hypertension type: essential hypertension Qualified Code(s): I10 - Essential (primary) hypertension Additional A&P Information Review of patient's chart, patient had an episode of acute diverticulitis with perforation and abscess in November of this year. At that time he was treated with IV Zosyn for a few days and then transition to p.o. Augmentin. Plan was to follow-up with a serial CAT scan and endoscopy, however patient was unable to make this appointment. While it is certainly feasible that current CT findings of small bowel microperforation with possible fistulization into the sigmoid colon may be a complication of the diverticulitis that happened in November, possibility of other underlying issues such as inflammatory bowel disease cannot be completely excluded. Patient would need some form of endoscopy with biopsy to conclusively make this diagnosis. In the interim for the microabscess, reasonable to treat the acute episode with a course of IV antibiotics. Ideally would prefer to use ertapenem 1 g IV every 24 daily, however patient does not have insurance and this drug would work out extremely expensive for [id number] payment. He is encouraged to apply for the [facility] emergency department program. He has previously tried to obtain Medicaid, however has been deemed ineligible. Another alternate option would be to use IV ceftriaxone with p.o. Flagyl. With the latter option also turns out to be unfeasible because of cost to the patient, will opt to use p.o. ciprofloxacin which has good bioavailability alongside of p.o. Flagyl. Anticipate at least 2-week course on the above regimen. After that will obtain repeat imaging to see if inflammatory changes and abscesses are resolving. Duration of antibiotic course may need to be adjusted based on patient's response. Further plans for endoscopy and or surgery per general surgery service. #Hypertension currently well controlled. Attestations Medical Necessity Statement*: need for iv abx, bowel rest, other admitting service notation Coding Level of Care Code Acute Hydraulic Punch Press Operator for [facility] Lauren Diagnoses Diverticulitis of intestine with perforation and abscess K57.20 Diverticulitis bleeding: without bleeding Diverticulitis site: large intestine Hypertension I10 Hypertension type: essential hypertension
--- NOTE | 2020-02-11 18:42 | PC.NURSE ---
SHIFT SUMMARY PATIENT HAS DONE WELL TODAY. RESTED WELL. GOOD URINE OUTPUT. THE PATIENT HAS ONLY NEEDED ONE DOSE OF PAIN MEDICATION. RECHECK LABS IN THE MORNING AND GO FROM THERE. NO COMPLAINTS AT THIS TIME.
[2020-02-12] VITALS (9 sets, daily range): BP systolic 122–165; BP diastolic 77–96; PULSE 60–70; RESP 16–22; TEMP 36.5–37.4; O2SAT 93–98
[2020-02-12] MEDS: dextrose 5%-sod chloride 0.45% 1,000 ML 100 ML IV ×3 (04:04→23:06)
--- NOTE | 2020-02-12 06:06 | PM.PN ---
Subjective Subjective: Interval history: Patient overall feels better and passing gas No acute events overnight Trending down in leukocytosis Vitals/I&O/Wt Last Vital Signs Temp 98.8 F 02/12/20 04:00 Pulse 70 02/12/20 04:00 Resp 18 02/12/20 04:00 BP 142/77 02/12/20 04:00 Pulse Ox 95 02/12/20 04:00 02/11/20 02/11/20 02/12/20 14:59 22:59 06:59 Intake Total 1300 / 1300 1235 / 2535 950 / 3485 Output Total 1200 / 1200 400 / 1600 425 / 2025 Balance 100 / 100 835 / 935 525 / 1460 Weight last 48 hrs Weight 200 lb Physical Exam Narrative: EXAM NARRATIVE: Patient is conscious alert oriented X3 BMI 30.4 Head and neck examination PERRLA no masses no cervical lymphadenopathy no jaundice Abdomen much less tender nondistended soft no organomegaly guarding or rigidity/no signs of peritonitis Extremities no cyanosis no clubbing no edema Data : 02/12/20 07:06 02/12/20 07:06 A&P Assessment and plan (1) Diverticulitis of intestine with perforation and abscess: Will continue IVF and IV Antibiotics We will plan to have a PICC line placement today and IV antibiotics started and continue to have it as an outpatient for at least 2 weeks(pending arrangement per case management as patient lacks insurance coverage) with repeated imaging studies and follow-up with me Dr. Palumbo at the same time. Repeat a.m. labs We will start the patient slowly on clear liquid diet I do appreciate hospitalist service input Assurance and education All questions have been answered and all concerns have been addressed to patient's satisfaction. Status: Acute Qualifiers: Diverticulitis bleeding: without bleeding Diverticulitis site: large intestine Qualified Code(s): K57.20 - Diverticulitis of large intestine with perforation and abscess without bleeding Attestations Medical Necessity Statement*: Medical necessity care is expected to cross 2 midnights Time Spent in Patient Care: (>than 50% of time spent in counselling and/or direct pt care on unit). Coding Level of Care Code Acute Operations Officer Trust Department for [facility] Fwd Diagnoses Diverticulitis of intestine with perforation and abscess K57.20 Diverticulitis bleeding: without bleeding Diverticulitis site: large intestine
[2020-02-12] MEDS: metroNIDAZOLE IV 500 MG/100 ML PREMIX 100 MG IV ×3 (06:13→23:05)
[2020-02-12] MEDS: morphine 4 mg/mL SDV 1 mL IVP ×3 (06:28→18:26)
--- NOTE | 2020-02-12 07:10 | PC.NURSE ---
patient sitting up on side of bed, agriculture laboratory technician at bedside for lab draw. Patient denies any pain at this time. Patient is calm and alert x4
[2020-02-12 07:28] LABS: Basophils % 0.2 %; Eosinophils # 0.1 10^3/uL (0.0-0.8); Eosinophils % 1.1 %; Hematocrit 46.2 % (42.0-52.0); Hemoglobin 15.2 g/dL (11.7-16.6); Lymphocytes # 1.3 10^3/uL (0.8-4.8); Lymphocytes % 10.8 %; Mean Corpuscular HGB Conc 32.9 g/dL (30.0-36.0); Mean Corpuscular Hemoglobin 31.3 pg (28.0-34.0); Mean Corpuscular Volume 95.1 fL (80-94); Mean Platelet Volume 13.5 fL (7.4-10.4); Monocytes # 0.9 10^3/uL (0.2-0.9); Monocytes % 7.6 %; Neutrophils # 9.52 10^3/uL (1.8-7.7); Nucleated Red Blood Cells % 0 %; Platelet Count 179 10^3/cmm (130-400); Red Blood Count 4.86 10^6/uL (4.1-5.3); Red Cell Distribution Width 13.5 % (12.1-15.1); White Blood Count 11.9 10^3/uL (4.0-10.0)
[2020-02-12 07:46] LABS: Alanine Aminotransferase 33 U/L (0-41); Albumin Level 3.6 g/dL (3.5-5.2); Alkaline Phosphatase 115 IU/L (40-130); Aspartate Amino Transferase 30 U/L (0-40); Blood Urea Nitrogen 5 mg/dL (6-20); Calcium 8.6 mg/dL (8.5-10.5); Carbon Dioxide 24 mmol/L (22-29); Chloride 102 mmol/L (98-107); Globulin 3.3 g/dL (1.3-4.6); Glomerular Filtration Rate 119.4 mL/min (90-130); Glucose 122 mg/dL (65-115); Osmolality Calculated 277 mOsm/kg (285-295); Sodium 135 mmol/L (136-145); Total Bilirubin 0.6 mg/dL (0.15-1.2); Total Protein 6.9 g/dL (6.6-8.7)
[2020-02-12 07:50] LABS: Anion Gap 12.9 (5-19); Potassium 3.9 mmol/L (3.5-5.1)
[2020-02-12] MEDS: ciprofloxacin 400 MG/200 ML PREMIX 200 MG IV ×2 (08:19→19:59)
[2020-02-12] MEDS: hyDRALAzine 20 mg/mL INJ 1 mL 5 MG IVP (08:26)
--- NOTE | 2020-02-12 14:36 | PM.PN ---
Subjective Subjective: Interval history: Symptomatically improving. States that abdomen is still soft however feels better. Had one episode of bowel movement. Passing flatus. Has been started on clears today per surgical recommendations. Needed a dose of 5 mg IV hydralazine this morning for elevated blood pressure. Medications: Reviewed: Yes Vitals/I&O/Wt Last Vital Signs Temp 97.7 F 02/12/20 12:00 Pulse 70 02/12/20 12:00 Resp 18 02/12/20 12:00 BP 165/96 02/12/20 12:00 Pulse Ox 95 02/12/20 12:00 02/11/20 02/12/20 02/12/20 22:59 06:59 14:59 Intake Total 1235 / 2535 950 / 3485 3696.667 / 3696.667 Output Total 400 / 1600 975 / 2575 2150 / 2150 Balance 835 / 935 -25 / 910 1546.667 / 1546.667 Weight last 48 hrs Weight 90.718 kg Physical Exam Narrative: EXAM NARRATIVE: GEN: Awake, alert and oriented, no acute distress CVS: S1S2 N RS: CTA B/L Abd: Soft, nt/nd , bs+, mild discomfort to palpation present CLINICAL MOLECULAR GENETICIST: no focal neuro deficits Data : 02/12/20 07:06 02/12/20 07:06 A&P Assessment and plan (1) Diverticulitis of intestine with perforation and abscess: Status: Acute Qualifiers: Diverticulitis bleeding: without bleeding Diverticulitis site: large intestine Qualified Code(s): K57.20 - Diverticulitis of large intestine with perforation and abscess without bleeding (2) Hypertension: Status: Acute Qualifiers: Hypertension type: essential hypertension Qualified Code(s): I10 - Essential (primary) hypertension Additional A&P Information # perforated diverticulitis Per review of patient's chart, patient had an episode of acute diverticulitis with perforation and abscess in November of this year. At that time he was treated with IV Zosyn for a few days and then transition to p.o. Augmentin. Plan was to follow-up with a serial CAT scan and endoscopy, however patient was unable to make this appointment. While it is certainly feasible that current CT findings of small bowel microperforation with possible fistulization into the sigmoid colon may be a complication of the diverticulitis that happened in November, possibility of other underlying issues such as inflammatory bowel disease cannot be completely excluded. This would need further w/up, likely endioscopy with biopsies for diagnosis. In the interim for the microabscess, reasonable to treat the acute episode with a course of IV antibiotics. Ideally would prefer to use ertapenem 1 g IV every 24 daily. Antibiotic choices are being limited by patient's lack of insurance. community services manager is working with him to obtain financial assistance. Per patient he has previously been declined for Medicaid. If ertapenem is not available or works out to be unaffordable for the patient, alternate option would be to use IV ceftriaxone with p.o. Flagyl. Anticipate at least 2-week course on the above regimen. After that will obtain repeat imaging to see if inflammatory changes and abscesses are resolving. Duration of antibiotic course may need to be adjusted based on patient's response. Further plans for endoscopy and or surgery per general surgery service. #Hypertension: This morning patient needed 5 mg of IV hydralazine. Blood pressure was controlled for a short while thereafter but now again trending up to 1 60-1 70 systolic. Since patient is now able to take p.o. intake, start him on 10 mg of p.o. amlodipine. Attestations Medical Necessity Statement*: Need for IV antibiotics, slowly advancing diet, per admitting service. Coding Level of Care Code Acute Multiple Sclerosis Nurse for [facility] Diagnoses Diverticulitis of intestine with perforation and abscess K57.20 Diverticulitis bleeding: without bleeding Diverticulitis site: large intestine Hypertension I10 Hypertension type: essential hypertension
[2020-02-12] MEDS: amlodipine 10 mg Tablet PO (16:59)
[2020-02-13] VITALS (9 sets, daily range): BP systolic 127–161; BP diastolic 78–100; PULSE 55–65; RESP 18–20; TEMP 36.3–36.8; O2SAT 94–99
[2020-02-13] MEDS: morphine 4 mg/mL SDV 1 mL IVP (04:37)
[2020-02-13 05:47] LABS: Basophils % 0.1 %; Eosinophils # 0.2 10^3/uL (0.0-0.8); Eosinophils % 2.4 %; Hematocrit 45.2 % (42.0-52.0); Hemoglobin 14.8 g/dL (11.7-16.6); Lymphocytes % 13.9 %; Mean Corpuscular HGB Conc 32.7 g/dL (30.0-36.0); Mean Corpuscular Hemoglobin 31.4 pg (28.0-34.0); Mean Corpuscular Volume 95.8 fL (80-94); Mean Platelet Volume 13.9 fL (7.4-10.4); Monocytes # 0.6 10^3/uL (0.2-0.9); Monocytes % 8.5 %; Neutrophils % 74.7 %; Nucleated Red Blood Cells % 0 %; Platelet Count 165 10^3/cmm (130-400); Red Blood Count 4.72 10^6/uL (4.1-5.3); Red Cell Distribution Width 13.2 % (12.1-15.1)
[2020-02-13] MEDS: metroNIDAZOLE IV 500 MG/100 ML PREMIX 100 MG IV ×2 (06:17→15:44)
[2020-02-13 06:20] LABS: Anion Gap 10.6 (5-19); Blood Urea Nitrogen 4 mg/dL (6-20); Calcium 8.1 mg/dL (8.5-10.5); Carbon Dioxide 27 mmol/L (22-29); Chloride 108 mmol/L (98-107); Glomerular Filtration Rate 119.4 mL/min (90-130); Glucose 120 mg/dL (65-115); Osmolality Calculated 291 mOsm/kg (285-295); Potassium 3.6 mmol/L (3.5-5.1); Sodium 142 mmol/L (136-145)
--- NOTE | 2020-02-13 06:43 | P.PN_ITS ---
Subjective Subjective: Interval history: Overall patient feels better Leukocytosis normalized Vitals/I&O/Wt Last Vital Signs Temp 98.0 F 02/13/20 04:00 Pulse 55 L 02/13/20 04:00 Resp 18 02/13/20 04:37 BP 127/78 02/13/20 04:00 Pulse Ox 94 02/13/20 04:00 02/12/20 02/12/20 02/13/20 14:59 22:59 06:59 Intake Total 3896.667 / 3896.667 1192 / 5088.667 1456.667 / 6545.334 Output Total 2750 / 2750 1450 / 4200 800 / 5000 Balance 1146.667 / 1146.667 -258 / 888.667 656.667 / 1545.334 Physical Exam Narrative: EXAM NARRATIVE: Patient is conscious alert oriented X3 BMI 30 Head and neck examination PERRLA no masses no cervical lymphadenopathy no jaundice Abdomen nontender nondistended soft no organomegaly guarding or rigidity/no signs of peritonitis Data : 02/13/20 05:05 02/13/20 05:05 A&P Assessment and plan (1) Diverticulitis of intestine with perforation and abscess: From surgical standpoint of view once the IV antibiotic and PICC line has been established patient can be discharged, if that is not going to be in place due to logistic reasons I will defer to Dr. Palumbo about the p.o. antibiotic regimen and duration and the plan from surgical standpoint of view to be discharged and follow-up in 2-3 weeks at surgery office and infectious disease as well with repeated CT scan images of the abdomen and pelvis with IV and p.o contrast. We will advance to full liquid diet Status: Acute Qualifiers: Diverticulitis bleeding: without bleeding Diverticulitis site: large intestine Qualified Code(s): K57.20 - Diverticulitis of large intestine with perforation and abscess without bleeding Attestations Medical Necessity Statement*: Medical necessity care is expected to cross 2 midnights Time Spent in Patient Care: (>than 50% of time spent in counselling and/or direct pt care on unit) . Coding Level of Care Code Acute Production Control Clerk for [facility] Fwd Diagnoses Diverticulitis of intestine with perforation and abscess K57.20 Diverticulitis bleeding: without bleeding Diverticulitis site: large intestine
[2020-02-13 06:48] LABS: C Reactive Protein 87.7 mg/L (0.0-4.9)
[2020-02-13 06:54] LABS: Erythrocyte Sedimentation Rate 35 mm/hr (0-10)
[2020-02-13 06:58] LABS: Carcinoembryonic Antigen 4.5 ng/mL (0.0-4.7)
[2020-02-13] MEDS: amlodipine 10 mg Tablet PO (08:10)
[2020-02-13] MEDS: ciprofloxacin 400 MG/200 ML PREMIX 200 MG IV (08:10)
--- NOTE | 2020-02-13 10:39 | XR_ITS ---
WS: [id number] EXAM: AP CHEST: PORTABLE UPRIGHT DATE OF EXAM: 02/13/2020, 1104 hour COMPARISON: Chest x-ray from 12/28/[address] of the abdomen and pelvis from 02/10/2020 HISTORY: Patient is 49 years old with PICC line placement. FINDINGS: The cardiac silhouette is stable. Considered upper limits of normal. The mediastinal contours show interval placement of right-sided PICC line ending in the SVC region. The pulmonary vascularity is normal. Left lung is clear. There is some minimal infiltrate in the right lung base. Presumably ate lectasis unless there are symptoms of pneumonia. There is no effusion or pneumothorax. No acute bon y abnormality is seen. XR/XR chest 1V portable [id number] IMPRESSION: PICC line ends in the SVC region. Right base infiltrate suspected to represent atelectasis.
[2020-02-13] MEDS: hyDRALAzine 20 mg/mL INJ 1 mL 5 MG IVP (11:45)
--- NOTE | 2020-02-13 11:48 | ECG_ITS ---
[facility] Test Date: 2020-02-13 Pat Name: Dandre Chaudhary Department: Room: 272 Gender: Male Pulp Grinder And Blender: : 1970 Requested By: Lanette Palumbo Order Number: [id number] Redd MD: Mando Garcia M.D. Measurements Intervals [place] Rate: 67 P: 23 ND: 140 QRS: 54 QRSD: 82 T: 30 QT: 381 QTc: 404 Interpretive Statements SINUS RHYTHM LOW QRS VOLTAGE IN EXTREMITY LEADS [QRS DEFLECTION < 0.5 mV IN LIMB LEADS] Compared to ECG 12/28/2015 17:59:00 Low QRS voltage now present Sinus bradycardia no longer present Electronically Signed On 02-14-2020 19:41:50 CDT by Mando Garcia M.D. [id number]
--- NOTE | 2020-02-13 15:53 | PM.DCS ---
Discharge Providers Date of Admission: 02/10/20 19:01 Date of Discharge: February 13, 2020 Attending Provider at Admission: Fauzia Renae MD Attending Provider at Discharge: Mayo Palma MD Diagnoses at Discharge Discharge Diagnosis (1) Diverticulitis of intestine with perforation and abscess: Status: Acute Problem details: Patient received a PICC line for IV antimicrobial therapy guided by infectious disease service Dr. Palumbo the plan to have a CT scan repeated of the abdomen and pelvis with oral and IV contrast in 2 weeks upon discharge Qualifiers: Diverticulitis bleeding: without bleeding Diverticulitis site: large intestine Qualified Code(s): K57.20 - Diverticulitis of large intestine with perforation and abscess without bleeding Reason for Visit Reason for Visit: abd pain Hospital Course Discharge Summary: Patient overall responded to conservative measures in the form of IV antibiotic therapy and started to tolerate p.o. intake and did well with that regard, continue to pass gas and having nonbloody bowel movements and showed trending down and leukocytosis till it normalized. Patient continued to have less pain in his pain was appropriately controlled. Received a PICC line for antimicrobial therapy as an outpatient and case management arranged all logistics for the patient. Patient verbalized understanding of the plan of care Physical Exam Narrative: EXAM NARRATIVE: Patient is conscious alert oriented X3 BMI 30 Head and neck examination PERRLA no masses no cervical lymphadenopathy no jaundice Abdomen nontender nondistended soft no organomegaly guarding or rigidity/no signs of peritonitis Discharge Data Data Completed and Pending: Completed Studies During Hospitalization Category Date Time Status CT abdomen pelvis w con* [id number] Stat Cat Scan 02/10/20 17:11 Completed XR acute abdomen series [id number] Urgen t Exams 02/10/20 16:26 Completed XR chest 1V anupama ble [id number] Routine Exams 02/13/20 10:39 Completed Labs from last 24 hours 02/13/20 02/13/20 02/13/20 05:05 05:05 05:05 WBC 7.0 RBC 4.72 Hgb 14.8 Hct 45.2 MCV 95.8 H MCH 31.4 MCHC 32.7 RDW 13.2 Plt Count 165 MPV 13.9 H Neut % (Auto) 74.7 Lymph % (Auto) 13.9 Gillespie % (Auto) 8.5 Eos % (Auto) 2.4 Baso % (Auto) 0.1 Neut # (Auto) 5.20 Lymph # (Auto) 1.0 Gillespie # (Auto) 0.6 Eos # (Auto) 0.2 Baso # (Auto) 0.0 Nucleated RBC % (a uto) 0 Nucleated RBCs # 0.0 ESR Sodium 142 Potassium 3.6 Chloride 108 H Carbon Dioxide 27 Anion Gap 10.6 BUN 4 L Creatinine 0.7 GFR Calculation 119.4 Glucose 120 H Calculated Osmolal ity 291 Calcium 8.1 L C-Reactive Protein Carcinoembryonic A g 4.5 02/13/20 02/13/20 05:05 05:05 WBC RBC Hgb Hct MCV MCH MCHC RDW Plt Count MPV Neut % (Auto) Lymph % (Auto) Gillespie % (Auto) Eos % (Auto) Baso % (Auto) Neut # (Auto) Lymph # (Auto) Gillespie # (Auto) Eos # (Auto) Baso # (Auto) Nucleated RBC % (a uto) Nucleated RBCs # ESR 35 H Sodium Potassium Chloride Carbon Dioxide Anion Gap BUN Creatinine GFR Calculation Glucose Calculated Osmolal ity Calcium C-Reactive Protein 87.7 H Carcinoembryonic A g Vitals: Last Vital Signs Temp 97.6 F 02/13/20 11:49 Pulse 65 02/13/20 11:49 Resp 18 02/13/20 11:49 BP 156/96 02/13/20 11:50 Pulse Ox 99 02/13/20 11:49 Discharge Plan Discharge Patient Disposition: Home Condition: Stable Prescriptions: Continued amlodipine 5 mg tablet See Rx Instructions .ROUTE .COMPLEX RF: 0 ibuprofen 200 mg Tablet 400 mg PO PRN RF: 0 Discharge Orders: Discharge Order (Routine); Ordered 02/13/20 Ordered By: Mayo Palma Referrals: Rojas Issa M.D. [Other] (You have an appointment to establish care with Dr Issa on 02/23/2020 at 1pm. Location is the [facility] Family Medicine clinic located at the same location as Urgent Care Clinic in [facility]. Please arrive a few min early for appointment.) [facility] Outpatient Surger [Other] (You have an appointment for your IV antibiotic, rocephin, tomorrow 02/14/20 at 07:30 at [facility]'s outpatient surgery. You will need to check in through the ER entrance tomorrow. Please call Care Coordination department at [phone] ext [phone] if you have any questions or concerns. ) Mayo Palma MD [Physician] - (Return to surgery office in [address] scan of the abdomen and pelvis with oral and IV contrast) Lanette Palumbo MD [Hospitalist] - (Return to infectious disease in [address] scan of the abdomen and pelvis with oral and IV contra) Discharge Diet: GI Soft Discharge Activity: Resume usual activity Activity Restrictions/Additional Instructions: Plan of care; Review the pathology with the patient Return to primary care provider Avoid constipation Avoid seeds nuts and popcorn High Fiber diet; As Fiber softens the stool and helps prevent constipation. It also can help decrease pressure in the colon and help prevent flare-ups of diverticulitis. High-fiber foods include: ? Beans and legumes ? Bran, whole wheat bread and whole grain cereals such as oatmeal ? Brown and wild rice ? Fruits such as apples, bananas and pears ? Vegetables such as broccoli, carrots, corn and squash ? Whole wheat pasta The target is to eat 25 to 30 grams of fiber daily. Drink at least 8 cups of fluid daily. Fluid will help soften your stool.Exercise also promotes bowel movement and helps prevent constipation. Weight management Assurance and education All questions have been answered Discharge Attestations Time Spent in Discharge Care*: less than 30 min Specific Discharge Activities: Specific discharge activities: educating patient Status at Discharge: Cognitive status at discharge: cognitively intact, Behavioral status at discharge: cooperative, Functional status at discharge: independent ambulation Overall status at discharge: patient is progressing back to baseline Quality Metrics Clinical Quality Measures During this hospital stay, did patient experience: None Coding Level of Care Code Acute Textile Dyer for [facility] Fwd Diagnoses Diverticulitis of intestine with perforation and abscess K57.20 Diverticulitis bleeding: without bleeding Diverticulitis site: large intestine
--- NOTE | 2020-02-13 16:03 | PM.PN ---
Subjective Subjective: Interval history: no acute overnight events, s/p PICC line this morning, eager to go home. Medications: Reviewed: Yes Vitals/I&O/Wt Last Vital Signs Temp 97.3 F L 02/13/20 15:57 Pulse 61 02/13/20 15:57 Resp 20 H 02/13/20 15:57 BP 136/93 02/13/20 15:57 Pulse Ox 98 02/13/20 15:57 02/13/20 02/13/20 02/13/20 06:59 14:59 22:59 Intake Total 1456.667 / 6745.334 580 / 580 Output Total 800 / 5000 Balance 656.667 / 1745.334 580 / 580 Physical Exam Narrative: EXAM NARRATIVE: GEN: Awake, alert and oriented, no acute distress CVS: S1S2 N RS: CTA B/L Abd: Soft, nt/nd , bs+ [employer]: no focal neuro deficits Data : 02/13/20 05:05 02/13/20 05:05 A&P Assessment and plan (1) Diverticulitis of intestine with perforation and abscess: Status: Acute Qualifiers: Diverticulitis bleeding: without bleeding Diverticulitis site: large intestine Qualified Code(s): K57.20 - Diverticulitis of large intestine with perforation and abscess without bleeding (2) Hypertension: Status: Acute Qualifiers: Hypertension type: essential hypertension Qualified Code(s): I10 - Essential (primary) hypertension Additional A&P Information # perforated diverticulitis - Per review of patient's chart, patient had an episode of acute diverticulitis with perforation and abscess in November of this year. At that time he was treated with IV Zosyn for a few days and then transition to p.o. Augmentin. Plan was to follow-up with a serial CAT scan and endoscopy, however patient was unable to make this appointment. - While it is certainly feasible that current CT findings of small bowel microperforation with possible fistulization into the sigmoid colon may be a complication of the diverticulitis that happened in November, possibility of other underlying issues such as inflammatory bowel disease cannot be completely excluded. This would need further w/up, likely endoscopy with biopsies for diagnosis. - In the interim for the microabscess, reasonable to treat the acute episode with a course of IV antibiotics. Ideally would prefer to use ertapenem 1 g IV every 24 daily, however antibiotic choices are being limited by patient's lack of insurance. He is being discharged today on IV ceftriaxone 1g iv q24h and with p.o. Flagyl 500mg TID. Anticipate at least 2-week course on the above regimen. After that will obtain repeat imaging to see if inflammatory changes and abscesses are resolving. Duration of antibiotic course may need to be adjusted based on patient's response. Further plans for endoscopy and or surgery per general surgery service. #Hypertension: Better controlled today Attestations Medical Necessity Statement*: per admitting service Coding Level of Care Code Acute Epic [facility] Fwd Diagnoses Diverticulitis of intestine with perforation and abscess K57.20 Diverticulitis bleeding: without bleeding Diverticulitis site: large intestine Hypertension I10 Hypertension type: essential hypertension
== END 2020-02-13 17:43 | disposition home or self-care (01) | DRG 392 ==
LOC: ER 17:04 → MEDSURG 21:31
PROVIDERS: Emergency Medicine; Physician Assistant; Admitting Provider Internal Medicine; Visit Provider Surgery
DX: K57.20 Diverticulitis of large intestine with perforation and abscess without bleeding (principal); I10 Essential (primary) hypertension; F17.210 Nicotine dependence, cigarettes, uncomplicated; F10.20 Alcohol dependence, uncomplicated
CPT/HCPCS: 12345; 36415; 36569; 71045; 74022; 74177; 80048; 80053; 80306; 81003; 82378; 83605; 83690; 84443; 85025; 85651; 86140; 93005; 96375; 99283; J0360; J0744; J1170; J2270; J2405; J2543; J7030; J7799; Q9967; S0030

== ENCOUNTER 2020-02-16 07:39 | Outpatient (RCR) | payer SELFPAY ==
[2020-02-14 07:41] VITALS: BP 148/93; PULSE 67; RESP 18; TEMP 36.2; O2SAT 100
[2020-02-14] MEDS: cefTRIAXone 1,000 MG in sodium chloride 0.9% (plus) 50 ML 100 MG IV (07:46)
[2020-02-15 07:28] VITALS: BP 155/103; PULSE 85; RESP 18; TEMP 36.6; O2SAT 97
[2020-02-15] MEDS: cefTRIAXone 1,000 MG in sodium chloride 0.9% (plus) 50 ML 100 MG IV (07:50)
[2020-02-16] MEDS: cefTRIAXone 1,000 MG in sodium chloride 0.9% (plus) 50 ML 100 MG IV (08:00)
[2020-02-16 08:03] VITALS: BP 148/101; PULSE 79; RESP 18; TEMP 36.5; O2SAT 98
[2020-02-17] MEDS: cefTRIAXone 1,000 MG in sodium chloride 0.9% (plus) 50 ML 100 MG IV (07:30)
[2020-02-17 07:34] VITALS: BP 142/106; PULSE 82; RESP 16; TEMP 36.4; O2SAT 98
[2020-02-18] MEDS: cefTRIAXone 1,000 MG in sodium chloride 0.9% (plus) 50 ML 100 MG IV (07:21)
[2020-02-18 07:22] VITALS: BP 152/100; PULSE 81; RESP 18; TEMP 36.3; O2SAT 98
[2020-02-19] MEDS: cefTRIAXone 1,000 MG in sodium chloride 0.9% (plus) 50 ML 100 MG IV (07:40)
[2020-02-19 07:48] VITALS: BP 150/100; PULSE 82; RESP 18; TEMP 36.4; O2SAT 98
[2020-02-20] MEDS: cefTRIAXone 1,000 MG in sodium chloride 0.9% (plus) 50 ML 100 MG IV (07:28)
[2020-02-20 07:39] VITALS: BP 149/99; PULSE 84; RESP 18; TEMP 36.1; O2SAT 99
[2020-02-21] MEDS: cefTRIAXone 1,000 MG in sodium chloride 0.9% (plus) 50 ML 100 MG IV (07:24)
[2020-02-21 07:27] VITALS: BP 158/105; PULSE 84; RESP 18; TEMP 36.1; O2SAT 99
[2020-02-22] MEDS: cefTRIAXone 1,000 MG in sodium chloride 0.9% (plus) 50 ML 100 MG IV (07:33)
[2020-02-22 07:34] VITALS: BP 149/102; PULSE 78; RESP 18; TEMP 35.6; O2SAT 98
[2020-02-23] MEDS: cefTRIAXone 1,000 MG in sodium chloride 0.9% (plus) 50 ML 100 MG IV (07:38)
[2020-02-23 07:43] VITALS: BP 144/97; PULSE 78; RESP 18; TEMP 36.4; O2SAT 99
== END 2020-02-23 23:59 | disposition home or self-care (01) ==
LOC: OPS 07:39
PROVIDERS: Visit Provider Student in an Organized Health Care Education/Training Program
DX: K57.92 Diverticulitis of intestine, part unspecified, without perforation or abscess without bleeding (principal)
CPT/HCPCS: 96365; J0696

== ENCOUNTER 2020-02-18 07:59 | Outpatient (CLI) | payer SELFPAY ==
[2020-02-18] MEDS: iohexol 300 mg/mL 50 mL Btl PO (08:38)
--- NOTE | 2020-02-18 09:30 | CT_ITS ---
WS: [id number] CT ABDOMEN AND PELVIS WITH CONTRAST HISTORY: diverticular abscess TECHNIQUE: Imaging performed of the abdomen and pelvis with IV contrast. Single phase imaging of the abdomen. Coronal and sagittal reformats are submitted. All CT scans at [facility] use at least one of these dose optimization techniques: automated exposure control; mA and/or kV adjustment per patient size (includes targeted exams where dose is matched to clinical indication); or iterativ e reconstruction. IV CONTRAST: Omnipaque 300; 95 mL IV. Oral contrast: Yes. DLP: 1220.75 mGycm COMPARISON: 02/10/2020 Lower thorax: Benign bilateral granulomata. Heart is normal size. No hiatal hernia. Liver/biliary system: Normal size with no intrahepatic dilatation. Gallbladder: Gallbladder is moderately distended with a stone. Similar findings on the prior study. A djacent inflammation or bile duct dilatation. Pancreas: Normal. Spleen: Normal. Adrenal glands: Normal spleen with adjacent splenule. Right kidney: Normal. Left kidney: Normal. Aorta: Mild atherosclerosis with no aneurysm. Lymphadenopathy: None. Free fluid: Small amount of free fluid in the pelvis has slightly increased since 02/10/2020. GI tract: The previously described interloop inflammation and abscess has increased significantly in size since 02/10/2020. There is a developing abscess with wall and air-fluid level posterior to the um bilicus measuring 5.2 x 4.2 cm. The abscess is encased and inseparable from a loop of small bowel and in adjacent loop of sigmoid colon. There are adjacent sigmoid diverticula and moderate thickening of the small bowel loop. There are small adjacent lymph nodes. No obstruction. Abdominal wall: Unremarkable abdominal wall. No hernia. Pelvis: Small amount of free fluid in the pelvis. Urinary bladder is negative. No adenopathy. Bones: T11 anterior wedging is stable. CT/CT abdomen pelvis w con* [id number] IMPRESSION: 1. Significant increase in size of the previously described interloop abscess between the sigmoid colon and central small bowel. Abscess measures 5.2 x 4.2 c m and is most likely due to sigmoid diverticular perforation. Adjacent inflamma tory lymph nodes and adjacent small bowel wall thickening. Abscess does not rukhsana ear to be accessible for percutaneous drainage as there is encasement by small bowel anteriorly. 2. Small amount of free fluid in the pelvis is slightly increased. I think lit hiasis without acute cholecystitis. 3. Numerous sigmoid diverticula.
[2020-02-18] MEDS: iohexol 300 mg/mL 100 mL Btl IV (09:31)
== END 2020-02-18 08:00 | disposition home or self-care (01) ==
LOC: RADWPI 08:05
PROVIDERS: PCP Family Medicine; Visit Provider Surgery
DX: K57.20 Diverticulitis of large intestine with perforation and abscess without bleeding (principal)
CPT/HCPCS: 74177; Q9967

== ENCOUNTER 2020-03-08 07:17 | Outpatient (RCR) | payer SELFPAY ==
[2020-02-24 07:48] VITALS: BP 144/93; PULSE 76; RESP 18; TEMP 36.3; O2SAT 98
[2020-02-24] MEDS: cefTRIAXone 1,000 MG in sodium chloride 0.9% (plus) 50 ML 100 MG IV (07:59)
[2020-02-25] MEDS: cefTRIAXone 1,000 MG in sodium chloride 0.9% (plus) 50 ML 100 MG IV (07:43)
[2020-02-25 07:45] VITALS: BP 157/99; PULSE 76; RESP 18; TEMP 36.8; O2SAT 99
[2020-02-26 07:29] VITALS: BP 150/102; PULSE 83; RESP 18; TEMP 36.2; O2SAT 99
[2020-02-26] MEDS: cefTRIAXone 1,000 MG in sodium chloride 0.9% (plus) 50 ML 100 MG IV (07:29)
[2020-02-27] MEDS: cefTRIAXone 1,000 MG in sodium chloride 0.9% (plus) 50 ML 100 MG IV (07:30)
[2020-02-27 07:56] VITALS: BP 168/112; PULSE 87; RESP 16; TEMP 36.4; O2SAT 99
[2020-02-28] MEDS: cefTRIAXone 1,000 MG in sodium chloride 0.9% (plus) 50 ML 100 MG IV (07:25)
[2020-02-28] MEDS: cefTRIAXone 1,000 mg SDV ×2 (07:25)
[2020-02-28 07:35] VITALS: BP 156/106; PULSE 79; RESP 16; TEMP 36.3; O2SAT 98
--- NOTE | 2020-02-28 07:36 | SUR.PREOP ---
PATIENT STATES THAT HE WENT TO PRIMARY DR YESTERDAY AND THAT THE DR WANTS HIM TO KEEP LOG OF BP AND RETURN IN 1 MONTH FOR CHECKUP,PT STATES THAT EVEN AFTER TAKING BP RX THIS IS THE SAME HERE IT WAS AT DR'S OFFICE,STATES THAT HE HAS A BP MACHINE AT HOME AND INSTRUCTED THE IMPORTANCE OF KEEPING A LOG FOR THE DR AND VERBALIZED UNDERSTANDING
[2020-02-29 07:38] VITALS: BP 164/109; PULSE 86; RESP 18; TEMP 36.4
--- NOTE | 2020-02-29 07:40 | SUR.PREOP ---
Pt is aware of elevated BP. stated his PCP is having him log it and will change med as necessary.
[2020-02-29] MEDS: cefTRIAXone 1,000 MG in sodium chloride 0.9% (plus) 50 ML 100 MG IV (07:56)
[2020-03-01] MEDS: cefTRIAXone 1,000 MG in sodium chloride 0.9% (plus) 50 ML 100 MG IV (07:22)
[2020-03-01 07:34] VITALS: BP 160/105; PULSE 81; RESP 18; TEMP 36.3; O2SAT 99
--- NOTE | 2020-03-01 07:35 | SUR.PREOP ---
pt blood pressure 160/105. pt says he started a new bp med a couple weeks ago and is documenting his bp every day for
[2020-03-02] MEDS: cefTRIAXone 1,000 MG in sodium chloride 0.9% (plus) 50 ML 50 MG IV (07:30)
[2020-03-02 07:32] VITALS: BP 168/110; PULSE 88; RESP 18; TEMP 36.7; O2SAT 99
[2020-03-03] MEDS: cefTRIAXone 1,000 MG in sodium chloride 0.9% (plus) 50 ML 50 MG IV (07:37)
[2020-03-03 07:42] VITALS: BP 157/106; PULSE 88; RESP 18; TEMP 36; O2SAT 98
[2020-03-03 07:58] LABS: Basophils # 0.1 10^3/uL (0.0-0.1); Basophils % 0.6 %; Eosinophils # 0.2 10^3/uL (0.0-0.8); Eosinophils % 2.4 %; Hematocrit 53.7 % (42.0-52.0); Hemoglobin 17.6 g/dL (11.7-16.6); Lymphocytes # 1.9 10^3/uL (0.8-4.8); Lymphocytes % 21.4 %; Mean Corpuscular HGB Conc 32.8 g/dL (30.0-36.0); Mean Corpuscular Hemoglobin 30.3 pg (28.0-34.0); Mean Corpuscular Volume 92.4 fL (80-94); Mean Platelet Volume 13.1 fL (7.4-10.4); Monocytes # 0.7 10^3/uL (0.2-0.9); Monocytes % 8.5 %; Neutrophils # 5.84 10^3/uL (1.8-7.7); Neutrophils % 66.8 %; Nucleated Red Blood Cells % 0 %; Platelet Count 258 10^3/cmm (130-400); Red Blood Count 5.81 10^6/uL (4.1-5.3); Red Cell Distribution Width 13.2 % (12.1-15.1); White Blood Count 8.7 10^3/uL (4.0-10.0)
[2020-03-03 08:24] LABS: Alanine Aminotransferase 39 U/L (0-41); Albumin Level 4.4 g/dL (3.5-5.2); Alkaline Phosphatase 113 IU/L (40-130); Anion Gap 16.3 (5-19); Aspartate Amino Transferase 25 U/L (0-40); Blood Urea Nitrogen 7 mg/dL (6-20); Calcium 9.5 mg/dL (8.5-10.5); Carbon Dioxide 26 mmol/L (22-29); Chloride 99 mmol/L (98-107); Glomerular Filtration Rate 101.9 mL/min (90-130); Glucose 182 mg/dL (65-115); Osmolality Calculated 284 mOsm/kg (285-295); Potassium 4.3 mmol/L (3.5-5.1); Sodium 137 mmol/L (136-145); Total Bilirubin 0.3 mg/dL (0.15-1.2); Total Protein 8.4 g/dL (6.6-8.7)
[2020-03-04 07:28] VITALS: BP 153/109; PULSE 87; RESP 18; TEMP 36.1; O2SAT 98
[2020-03-04] MEDS: cefTRIAXone 1,000 MG in sodium chloride 0.9% (plus) 50 ML 100 MG IV (07:30)
[2020-03-05 07:30] VITALS: BP 144/102; PULSE 91; RESP 18; TEMP 36.3; O2SAT 99
[2020-03-05] MEDS: cefTRIAXone 1,000 MG in sodium chloride 0.9% (plus) 50 ML 100 MG IV (07:39)
[2020-03-06] MEDS: cefTRIAXone 1,000 MG in sodium chloride 0.9% (plus) 50 ML 100 MG IV (07:21)
[2020-03-06 07:27] VITALS: BP 160/106; PULSE 93; RESP 18; TEMP 36.1; O2SAT 99
[2020-03-07 07:27] VITALS: BP 157/105; PULSE 81; RESP 18; TEMP 36.3; O2SAT 100
[2020-03-07] MEDS: cefTRIAXone 1,000 MG in sodium chloride 0.9% (plus) 50 ML 100 MG IV (07:27)
[2020-03-08 07:31] VITALS: BP 165/110; PULSE 88; RESP 18; TEMP 36.7; O2SAT 100
[2020-03-08] MEDS: cefTRIAXone 1,000 MG in sodium chloride 0.9% (plus) 50 ML 100 MG IV (07:31)
[2020-03-09 07:20] VITALS: BP 147/105; PULSE 85; RESP 18; TEMP 36.2; O2SAT 98
[2020-03-09] MEDS: cefTRIAXone 1,000 MG in sodium chloride 0.9% (plus) 50 ML 100 MG IV (07:21)
[2020-03-10 07:26] VITALS: BP 157/110; PULSE 88; RESP 18; TEMP 35.7; O2SAT 98
[2020-03-10] MEDS: cefTRIAXone 1,000 MG in sodium chloride 0.9% (plus) 50 ML 100 MG IV (07:26)
[2020-03-11] MEDS: cefTRIAXone 1,000 MG in sodium chloride 0.9% (plus) 50 ML 100 MG IV (07:26)
[2020-03-11 07:31] VITALS: BP 145/102; PULSE 93; RESP 18; TEMP 36.6; O2SAT 100
[2020-03-12] MEDS: cefTRIAXone 1,000 MG in sodium chloride 0.9% (plus) 50 ML 100 MG IV (07:25)
[2020-03-12 07:31] VITALS: BP 159/105; PULSE 92; RESP 18; TEMP 36.5; O2SAT 98
[2020-03-13] MEDS: cefTRIAXone 1,000 MG in sodium chloride 0.9% (plus) 50 ML 100 MG IV (07:30)
[2020-03-13 07:38] VITALS: BP 148/105; PULSE 85; RESP 18; TEMP 37; O2SAT 98
[2020-03-14] MEDS: cefTRIAXone 1,000 MG in sodium chloride 0.9% (plus) 50 ML 100 MG IV (07:29)
[2020-03-14 07:30] VITALS: BP 159/107; PULSE 84; RESP 18; TEMP 36.5; O2SAT 100
[2020-03-15] MEDS: cefTRIAXone 1,000 MG in sodium chloride 0.9% (plus) 50 ML 100 MG IV (07:20)
[2020-03-15 07:21] VITALS: BP 156/107; PULSE 79; RESP 18; TEMP 35.9; O2SAT 100
[2020-03-16] MEDS: cefTRIAXone 1,000 MG in sodium chloride 0.9% (plus) 50 ML 100 MG IV (07:25)
[2020-03-16 07:36] VITALS: BP 153/104; PULSE 83; RESP 18; TEMP 36.8; O2SAT 100
[2020-03-17] MEDS: cefTRIAXone 1,000 MG in sodium chloride 0.9% (plus) 50 ML 100 MG IV (07:27)
[2020-03-17 07:29] VITALS: BP 155/108; PULSE 88; RESP 18; TEMP 36.1; O2SAT 99
[2020-03-18] MEDS: cefTRIAXone 1,000 MG in sodium chloride 0.9% (plus) 50 ML 100 MG IV (07:25)
[2020-03-18 07:26] VITALS: BP 150/108; PULSE 99; RESP 18; TEMP 36.9; O2SAT 99
[2020-03-19] MEDS: cefTRIAXone 1,000 MG in sodium chloride 0.9% (plus) 50 ML 100 MG IV (07:20)
[2020-03-19 07:49] VITALS: BP 153/105; PULSE 85; RESP 18; TEMP 36.8; O2SAT 99
[2020-03-20] MEDS: cefTRIAXone 1,000 MG in sodium chloride 0.9% (plus) 50 ML 100 MG IV (07:25)
[2020-03-20 07:49] VITALS: BP 151/97; PULSE 82; RESP 18; TEMP 36.4; O2SAT 99
[2020-03-21 07:49] VITALS: BP 157/107; PULSE 82; RESP 18; TEMP 36.6; O2SAT 99
[2020-03-21] MEDS: cefTRIAXone 1,000 MG in sodium chloride 0.9% (plus) 50 ML 100 MG IV (07:51)
[2020-03-22] MEDS: cefTRIAXone 1,000 MG in sodium chloride 0.9% (plus) 50 ML 100 MG IV (07:20)
[2020-03-22 07:24] VITALS: BP 153/106; PULSE 90; RESP 18; TEMP 36.1; O2SAT 99
== END 2020-03-24 23:59 | disposition home or self-care (01) ==
LOC: OPS 07:17
PROVIDERS: PCP Family Medicine; Visit Provider Student in an Organized Health Care Education/Training Program
DX: K57.80 Diverticulitis of intestine, part unspecified, with perforation and abscess without bleeding (principal)
CPT/HCPCS: 15852; 36415; 80053; 85025; 96365; J0696

== ENCOUNTER 2020-03-08 08:13 | Outpatient (CLI) | payer SELFPAY ==
--- NOTE | 2020-03-08 08:48 | CT_ITS ---
WS: [id number] CT ABDOMEN PELVIS TECHNIQUE: Noncontrast CT of the abdomen and contrast-enhanced CT of the abdomen and pelvis with leslie nal and sagittal reformatted images. CLINICAL INFORMATION: diverticulitis COMPARISON: February 18, 2020, 2019, November 29, 2025 DLP: 2245.[address] scans at [facility] use at least one of these dose optimization techniques: automat ed exposure control; mA and/or kV adjustment per patient size (includes targeted exams where dose is matched to clinical indication); or iterative reconstruction. FINDINGS: Interval decrease in size of the interloop abscess in the midabdomen from perforated diverticulitis. This is decreased in size from previous with small residual air-fluid collection measuring 1.4 x 1.4 cm compared to 5.7 x 4.2 cm previous. Persistent thickening of the sigmoid colon with a few diverticuli. No evidence of new or progressive diverticulitis. No other significant changes from previous. Normal liver. Fluid distended gallbladder. Calculi in the gallbladder neck unchanged from previous. N ormal spleen. Small splenule. Fatty atrophy of the pancreas. Adrenal glands are normal. Normal renal parenchymal enhancement. No hydronephrosis. Lung bases are well aerated. A few calcified granulomas. Normal GE junction. No evidence of small or large bowel obstruction. No periaortic or inguinal lymphadenopathy. CT/CT abdomen pelvis wo/w [id number] IMPRESSION: 1. Interval improvement with decrease in size of the interloop abscess from di verticulitis. Small air-fluid level measures 1.4 x 1.4 cm today. 2. Mild persistent thickening of the sigmoid colon with a few diverticuli. No progressive diverticulitis. 3. Fluid-filled dilated gallbladder with calculus at the gallbladder neck unch anged from previous. No pericholecystic fluid or gallbladder wall thickening. 4. No other significant changes from previous.
[2020-03-08] MEDS: iohexol 300 mg/mL 100 mL Btl IV (11:03)
[2020-03-08] MEDS: iohexol 300 mg/mL 50 mL Btl PO (11:04)
--- NOTE | 2020-03-13 07:47 | PM.MISC ---
Miscellaneous Note Purpose of Documentation: CT scan review, patient call Note: Patient's CT abdomen from 03/08 was reviewed. His abdominal abscess continues to improve, now down to 1.4 x 1.4 cm in size. He had some abdominal pain 4 days ago in the lower abdomen which is now resolved. Spoke to nurse in outpatient surgery, ceftriaxone extended through to 03/22 at which time i will re evaluate patient and decide further course. Above discussed with patient over phone. labs from 03/03 without evidence of cytopenias, normal LFT and renal function.
== END 2020-03-08 08:14 | disposition home or self-care (01) ==
LOC: RADWPI 08:18
PROVIDERS: PCP Family Medicine Adult Medicine; Visit Provider Student in an Organized Health Care Education/Training Program
DX: K57.80 Diverticulitis of intestine, part unspecified, with perforation and abscess without bleeding (principal)
CPT/HCPCS: 74178; Q9967

== ENCOUNTER 2020-03-24 06:33 | Outpatient (CLI) | payer SELFPAY ==
[2020-03-24] MEDS: iohexol 300 mg/mL 100 mL Btl IV (07:16)
--- NOTE | 2020-03-24 08:00 | CT_ITS ---
WS: [id number] CT ABDOMEN AND PELVIS WITH CONTRAST HISTORY: follow up on intraabdominal abscess TECHNIQUE: Imaging performed of the abdomen and pelvis with IV contrast. Single phase imaging of the abdomen. Coronal and sagittal reformats are submitted. All CT scans at [facility] use at least one of these dose optimization techniques: automated exposure control; mA and/or kV adjustment per patient size (includes targeted exams where dose is matched to clinical indication); or iterativ e reconstruction. IV CONTRAST: 03/08/2020 and 02/18/2020 Oral contrast: No DLP: 872.7 mGy.cm COMPARISON: 03/08/2020 and 02/18/2020 Lower thorax: Granulomata at the lung bases. No pneumonia. Mild enlargement of the heart. No hiatal h ernia. Liver/biliary system: Tiny hypodense nodule in the posterior RIGHT lobe of the liver is nonspecific. No bile duct dilatation. Gallbladder: Distended gallbladder with a stone at the neck. Similar to prior studies with no adjacen t inflammation. Pancreas: Normal. Spleen: Normal size spleen with adjacent splenule's. Adrenal glands: Normal. Right kidney: Normal. Left kidney: Normal. Aorta: Mild atherosclerosis. No aneurysm. Lymphadenopathy: None. Free fluid: None. GI tract: Persistent but progressive decrease in size and inflammation of the interloop abscess cente red in the mid abdomen. There is still a small pocket of air and a very small abscess cavity measurin g 13 mm maximum diameter. There is adjacent soft tissue thickening and fibrosis and scarring extendin g towards the sigmoid colon. This abscess is surrounded by loops of colon and small bowel. There is m arked thickening of the sigmoid wall with numerous diverticula. Some of these diverticula are very cl ose to the surface of the colon placement patient at increased risk for additional perforations. The adjacent small bowel loops are also thickened. No GI tract obstruction. Abdominal wall: Unremarkable abdominal wall. No hernia. Pelvis: Normal. Bones: No interval change. CT/CT abdomen pelvis w con* [id number] IMPRESSION: 1. Persistent decrease in size of the interloop abscess centered in the mid ab domen associated with sigmoid diverticulitis. Maximum diameter is now 13 mm. Th ere are numerous adjacent diverticula with significant wall thickening of the c olon and loops of small bowel. 2. No free fluid or free air. 3. Extensive sigmoid diverticulosis placed in the patient's increased risk for developing additional perforations and abscesses. 4. Cholelithiasis with distended gallbladder. Stone remains present at the [facility].
== END 2020-03-24 06:34 | disposition home or self-care (01) ==
LOC: CT 06:34
PROVIDERS: PCP Family Medicine Adult Medicine; Visit Provider Student in an Organized Health Care Education/Training Program
DX: K65.1 Peritoneal abscess (principal); R19.8 Other specified symptoms and signs involving the digestive system and abdomen; K57.30 Diverticulosis of large intestine without perforation or abscess without bleeding; K80.20 Calculus of gallbladder without cholecystitis without obstruction; K57.92 Diverticulitis of intestine, part unspecified, without perforation or abscess without bleeding
CPT/HCPCS: 74177

== ENCOUNTER 2020-07-26 13:20 | Inpatient (IN) | payer SELFPAY ==
[2020-07-26] VITALS (8 sets, daily range): BP systolic 124–168; BP diastolic 84–109; PULSE 73–93; RESP 16–18; TEMP 36.5–36.6; O2SAT 91–100; BMI 28.8
--- NOTE | 2020-07-26 14:31 | ED_ITS ---
Documented by User: JENNI Dial 07/26/20 17:12 HPI - Abdominal Pain General: Chief Complaint: Abdominal Pain Stated Complaint: FEELS LIKE DIVERTICULITIS FLARE Time Seen by Provider: 07/26/20 14:27 History of Present Illness: HPI narrative: Patient is a 50-year-old male who comes to the ED with abdominal pain. Patient has a past medical history of diverticulitis with development of abscess on Feb 10, 2020. Patient says sym ptoms started approximately 2 to 3 hours ago. The abdominal pain is centrally located and he rates it an 8 out of 10. He says that this pain is similar to the pain he had with his diverticulitis. He has not had any nausea/vomiting or diarrhea. Denies any blood in stool. Denies fever, chest pains, bladder symptoms. Associated Symptoms: Denies chills, constipation, diarrhea, dysuria, fever(s), hematochezia, hematuria, nausea and vomiting Review of Systems Const: Reports: change in appetite (Decreased); Denies: fever(s), chills or fatigue Eyes: Denies: change in vision or eye discomfort ENMT: Denies: throat pain, odynophagia, nasal discharge or nasal congestion Card: Denies: chest pain, palpitations, edema, swelling of feet/ankles, dyspnea on exertion or orthopnea Resp: Denies: dyspnea, productive cough or non-productive cough GI: Reports: abdominal pain (Periumbilical/central of the abdomen.); Denies: nausea, vomiting, diarrhea, constipation or hematochezia : Denies: flank pain, difficulty urinating, dysuria or hematuria Musc: Denies: neck pain, back pain or extremity swelling Skin/Breast: Denies: rash or new lesions Neuro: Denies: headache(s), numbness in extremities or weakness in extremities PFSH ED PFSH: Medical History Diverticulitis of intestine with perforation and abscess Elevated hemoglobin Hyperglycemia Hypertension Perforated diverticulum of large intestine Surgical History No history of previous surgery Family History Other Hypertension Social History Smoking and tobacco status: current every day smoker cigarettes Packs smoked per day: 1 Years cigarettes smoked: 35 Second hand smoke exposure: Yes Alcohol intake: current Alcohol intake frequency: 3 or more drinks per day Alcohol type: beer Lives independently: Yes Household members: significant other Current occupational status: unemployed Special donna needs: No Physical Exam Const: COMMON NORMALS: no acute distress, patient oriented x3 and alert GENERAL APPEARANCE: cooperative and comfortable HENMT: COMMON NORMALS: normocephalic HEAD & SCALP: normocephalic MOUTH: Normal oral and palatal mucosa present THROAT: posterior oropharynx normal and uvula midline Eye: COMMON NORMALS: Equal, round and reactive pupils present PUPIL: Yes Equal, round and reactive pupils present Neck/C-Spine: COMMON NORMALS: supple GENERAL: Yes normal visual inspection Resp: COMMON NORMALS: normal respiratory effort, No retractions, No use of accessory muscles and clear to auscultation bilaterally AUSCULTATION: clear to auscultation bilaterally Cardio: COMMON NORMALS: regular rate, regular rhythm, S1 normal heart sound present, S2 normal heart sound present, No gallops present (Cardio), No clicks present (Cardio), No murmurs present (Cardio) and Peripheral pulses 2+ throughout RATE: regular rate RHYTHM: regular rhythm HEART SOUNDS: S1 normal heart sound present and S2 normal heart sound present PERIPHERAL PULSES: Peripheral pulses 2+ throughout GI: COMMON NORMALS: Normal to inspection, nondistended, normoactive bowel sounds present, Soft to palpation and no masses PALPATION: Yes Soft to palpation and Yes Tenderness to palpation present (GI) Details: other (Periumbilical tenderness upon light palpation.) : COMMON NORMALS: Yes no CVA tenderness BLADDER/KIDNEY EXAM: Yes no CVA tenderness Back/Pelvis: COMMON NORMALS: no CVA tenderness Extremity: COMMON NORMALS: normal to inspection and no pedal edema Neuro: COMMON NORMALS: patient oriented x3 SENSORIUM/ORIENTATION: Yes alert GAIT: Yes Normal gait present Skin: GENERAL SKIN EXAM: dry skin Course Vital Signs: Vital signs: Vital Signs Temperature 98.2 F 07/27/20 07:57 Pulse Rate 66 07/27/20 07:57 Respiratory Rate 16 07/27/20 07:57 Blood Pressure 117/73 07/27/20 07:57 Pulse Oximetry 95 07/27/20 07:57 MDM - Abdominal Pain MDM Narrative: Medical decision making narrative: Pt is a 50 y/o male that presents to the ED with abdominal pain. PMH of diverticulitis with abscess back in 2019. Pain started a couple hours before arrival to ED. Denies fever, n/v, diarrhea or blood in stool. Pt has periumbilical region tenderness. upon exam. WBC 11.1 and rest of CBC and CMP was unremarkable. Lipase in normal range. Vitals are stable. CT abdomen showed acute diverticulitis with developing abscess. pts pain is well controlled with morphine and he was started on IV flagyl and Cipro here in the ED. I discussed pt case with Dr. Dodson and he will be taking over pt's care and admission to hospital. Lab Data: Attestation: I reviewed the patient's lab results. Labs: Lab Results 07/26/20 07/26/20 07/26/20 Range/Units 14:29 14:29 14:29 WBC 11.1 H (4.0-10.0) 10^3/ uL RBC 5.73 H (4.1-5.3) 10^6/u L Hgb 17.8 H (11.7-16.6) g/dL Hct 52.9 H (42.0-52.0) % MCV 92.3 (80-94) fL MCH 31.1 (28.0-34.0) pg MCHC 33.6 (30.0-36.0) g/dL RDW 12.2 (12.1-15.1) % Plt Count 196 (130-400) 10^3/c mm MPV 12.1 H (7.4-10.4) fL Neut % (Auto) 83.3 % Lymph % (Auto) 9.5 % [place] % (Auto) 5.9 % Eos % (Auto) 0.6 % Baso % (Auto) 0.3 % Neut # (Auto) 9.24 H (1.8-7.7) 10^3/u L Lymph # (Auto) 1.1 (0.8-4.8) 10^3/u L [place] # (Auto) 0.7 (0.2-0.9) 10^3/u L Eos # (Auto) 0.1 (0.0-0.8) 10^3/u L Baso # (Auto) 0.0 (0.0-0.1) 10^3/u L Nucleated RBC % (a uto) 0 % Nucleated RBCs # 0.0 /100WBC Sodium 134 L (136-145) mmol/L Potassium 4.7 (3.5-5.1) mmol/L Chloride 97 L (98-107) mmol/L Carbon Dioxide 26 (22-29) mmol/L Anion Gap 15.7 (5-19) BUN 7 (6-20) mg/dL Creatinine 0.8 (0.7-1.2) mg/dL GFR Calculation 101.9 (90-130) mL/min Glucose 90 (65-115) mg/dL Calculated Osmolal ity 276 L (285-295) mOsm/k g Lactic Acid 1.2 (0.5-2.2) mmol/L Calcium 9.4 (8.5-10.5) mg/dL Total Bilirubin 0.4 (0.15-1.2) mg/dL AST 31 (0-40) U/L ALT 38 (0-41) U/L Alkaline Phosphata se 119 (40-130) IU/L Total Protein 7.1 (6.6-8.7) g/dL Albumin 4.4 (3.5-5.2) g/dL Globulin 2.7 (1.3-4.6) g/dL Lipase 28 (13-60) U/L Urine Color (Yellow) Urine Appearance (CLEAR) Urine pH (5-7) Ur Specific Gravit y (1.005-1.030) Urine Protein (Negative) Urine Glucose (UA) (Normal) Urine Ketones (Negative) Urine Blood (Negative) Urine Nitrate (Negative) Urine Bilirubin (Negative) Urine Urobilinogen (Negative) mg/dL Ur Leukocyte Carito ase (Negative) Urine RBC (0-2) /hpf Urine WBC (0-5) /hpf Ur Squamous Epith Cells (0-5) /hpf Amorphous Sediment Urine Bacteria (NONE) /hpf 07/26/20 Range/Units 14:50 WBC (4.0-10.0) 10^3/ uL RBC (4.1-5.3) 10^6/u L Hgb (11.7-16.6) g/dL Hct (42.0-52.0) % MCV (80-94) fL MCH (28.0-34.0) pg MCHC (30.0-36.0) g/dL RDW (12.1-15.1) % Plt Count (130-400) 10^3/c mm MPV (7.4-10.4) fL Neut % (Auto) % Lymph % (Auto) % [place] % (Auto) % Eos % (Auto) % Baso % (Auto) % Neut # (Auto) (1.8-7.7) 10^3/u L Lymph # (Auto) (0.8-4.8) 10^3/u L [place] # (Auto) (0.2-0.9) 10^3/u L Eos # (Auto) (0.0-0.8) 10^3/u L Baso # (Auto) (0.0-0.1) 10^3/u L Nucleated RBC % (a uto) % Nucleated RBCs # /100WBC Sodium (136-145) mmol/L Potassium (3.5-5.1) mmol/L Chloride (98-107) mmol/L Carbon Dioxide (22-29) mmol/L Anion Gap (5-19) BUN (6-20) mg/dL Creatinine (0.7-1.2) mg/dL GFR Calculation (90-130) mL/min Glucose (65-115) mg/dL Calculated Osmolal ity (285-295) mOsm/k g Lactic Acid (0.5-2.2) mmol/L Calcium (8.5-10.5) mg/dL Total Bilirubin (0.15-1.2) mg/dL AST (0-40) U/L ALT (0-41) U/L Alkaline Phosphata se (40-130) IU/L Total Protein (6.6-8.7) g/dL Albumin (3.5-5.2) g/dL Globulin (1.3-4.6) g/dL Lipase (13-60) U/L Urine Color Yellow (Yellow) Urine Appearance Clear (CLEAR) Urine pH 6 (5-7) Ur Specific Gravit y 1.010 (1.005-1.030) Urine Protein Neg (Negative) Urine Glucose (UA) Norm (Normal) Urine Ketones Negative (Negative) Urine Blood Neg (Negative) Urine Nitrate Negative (Negative) Urine Bilirubin Neg (Negative) Urine Urobilinogen Norm (Negative) mg/dL Ur Leukocyte Carito ase Negative (Negative) Urine RBC None (0-2) /hpf Urine WBC None (0-5) /hpf Ur Squamous Epith Cells Rare (0-5) /hpf Amorphous Sediment Not Reportable Urine Bacteria Trace (NONE) /hpf Imaging Data ^: CT Abd/Pel: Attestation: I personally reviewed and interpreted this imaging study as follows: Radiologist's impression: [facility] [address] [place] [address] CT Scan Report Signed Patient: Dandre Chaudhary Unit #: [id number] : 1970 Age/Sex: 50 / M ADM Date: 07/26/20 Loc: ER Room/Bed: Attending Dr: Ordering Provider/Ordering MD: Sukhwinder Mora Date of Service: 07/26/20 Procedure(s): CT abdomen pelvis w con* [id number] Accession Number(s): [id number] Report Number: [id number] WS: [id number] CT ABDOMEN AND PELVIS WITH CONTRAST HISTORY: abdominal pain TECHNIQUE: Imaging performed of the abdomen and pelvis with IV contrast. Single phase imaging of the abdomen. Coronal and sagittal reformats are submitted. All CT scans at [facility] use at least one of these dose optimization techniques: automated exposure control; mA and/or kV adjustment per patient size (includes targeted exams where dose is matched to clinical indication); or iterative reconstruction. IV CONTRAST: Omnipaque 300; 95 mL IV. Oral contrast: No DLP: 835.88 mGy.cm COMPARISON: 03/24/2020 Lower thorax: Benign granulomata at the lung bases. No suspicious mass. Heart is normal size. Small hiatal hernia. Liver/biliary system: Normal size with no intrahepatic dilatation. Gallbladder: Moderately well distended gallbladder. There is a stone in the gallbladder lumen towards the neck. This is been present on prior studies. There may be some sludge within the gallbladder. No adjacent inflammation. Pancreas: Normal. Spleen: Normal spleen with granulomata. Adrenal glands: Normal. Right kidney: Normal. Left kidney: Normal. Aorta: Mild atherosclerosis with no aneurysm. Lymphadenopathy: None. Free fluid: Very small amount of free fluid in the pelvis. GI tract: There is significant wall thickening involving the sigmoid colon with numerous diverticula. 12 mm abscess within the wall of the sigmoid mucosa. There are additional numerous small diverticula with adjacent inflammation. No interloop abscess is identified on today's study as on the prior study although there is significant inflammation and the diverticula within the area of the previous abscess are inflamed. Abdominal wall: Unremarkable abdominal wall. No hernia. Pelvis: Well-distended bladder. Bones: Unremarkable. CT/CT abdomen pelvis w con* [id number] IMPRESSION: 1. Acute diverticulitis involving the sigmoid colon. There are numerous inflamed diverticula with adjacent edema and wall thickening. Mucosal abscess measuring 12 mm contained within the sigmoid. No recurrent interloop abscess although there is significant inflammation and numerous diverticula inflamed in this same area as on the prior examination. 2. Tiny amount of free fluid. 3. Cholelithiasis and possible gallbladder sludge. Similar to prior studies. Dictated By: Whit Florence DO Signed By: Whit Florence DO Signed Date/Time: 07/26/20 1557 DD/ 1550 Discharge Plan Discharge Patient Disposition: Admitted As Inpatient Admit Provider: Rojas Issa Clinical Impression: Sigmoid diverticulosis Condition: Stable Sign Out Sign Out Data: Patient Sign Out occurred on 07/26/20 at 17:22. Patient's care was discussed, and care was transferred from JENNI Dial to Arya Dodson DO. Sign Out Comment: Pt needs to be admitted.-Diverticulitis with abscess. I started pt on IV flagyl and cipro. Last updated by Sukhwinder Mora PA at 07/26/20 16:55 Coding Level of Care Code ED Practical Nursing Teacher for Chg Fwd Exam Comprehensive Documented by User: Arya Dodson DO 07/27/20 10:18 HPI - Abdominal Pain General: Chief Complaint: Abdominal Pain Stated Complaint: FEELS LIKE DIVERTICULITIS FLARE Time Seen by Provider: 07/26/20 14:27 History of Present Illness: HPI narrative: 50-year-old male initially seen by the PA. He had abdominal pain for the last couple of hours she is previously had diverticulitis CT done in work-up by midlevel showed diverticulitis with some sigmoid colon wall abscess MD elicited complaint: abdominal pain Onset (ago): hour(s) Pain Consistency: constant Location: LLQ Severity: moderate Quality: cramping Radiation: none Associated Symptoms: Denies bloating, chills, coffee ground emesis, constipati on, diarrhea, dysuria, fever(s), hematochezia, hematemesis, melena, nausea and vomiting Review of Systems Const: Denies: fever(s), chills, body aches, change in appetite, fatigue or malaise ENMT: Denies: throat pain, ear or mastoid pain, nasal discharge or nasal congestion Card: Denies: chest pain, edema, dyspnea on exertion or orthopnea Resp: Denies: dyspnea, productive cough or non-productive cough GI: Reports: abdominal pain; Denies: nausea, vomiting, hematemesis, coffee ground emesis, diarrhea, constipation, bloating, hematochezia or melena : Denies: flank pain, dysuria, urinary frequency or urinary urgency Skin/Breast: Denies: rash or pruritus PFSH ED PFSH: Medical History Diverticulitis of intestine with perforation and abscess Elevated hemoglobin Hyperglycemia Hypertension Perforated diverticulum of large intestine Surgical History No history of previous surgery Family History Other Hypertension Social History Smoking and tobacco status: current every day smoker cigarettes Packs smoked per day: 1 Years cigarettes smoked: 35 Second hand smoke exposure: Yes Alcohol intake: current Alcohol intake frequency: 3 or more drinks per day Alcohol type: beer Lives independently: Yes Household members: significant other Current occupational status: unemployed Special donna needs: No Physical Exam Const: COMMON NORMALS: no acute distress GENERAL APPEARANCE: cooperative and comfortable ORIENTATION/CONSCIOUSNESS: Yes awake, Yes oriented to person, Yes oriented to place and Yes oriented to time HENMT: COMMON NORMALS: normocephalic, atraumatic and hearing grossly normal bilaterally HEAD & SCALP: normocephalic and atraumatic Neck/C-Spine: COMMON NORMALS: no JVD Resp: COMMON NORMALS: normal respiratory effort, No retractions, No use of accessory muscles and clear to auscultation bilaterally AUSCULTATION: clear to auscultation bilaterally Cardio: COMMON NORMALS: no JVD, regular rate, regular rhythm and No murmurs present (Cardio) RATE: regular rate RHYTHM: regular rhythm GI: COMMON NORMALS: No hepatosplenomegaly present AUSCULTATION: Yes Hypoactive bowel sounds present PALPATION: Yes Tenderness to palpation present (GI) Details: LLQ, No Guarding due to palpation present (GI) and Yes No hepatosplenomegaly present Extremity: COMMON NORMALS: normal to inspection, capillary refill normal, no clubbing, cyanosis or edema, no calf tenderness and no pedal edema Neuro: SENSORIUM/ORIENTATION: Yes oriented to person, Yes oriented to place and Yes oriented to time Skin: COMMON NORMALS: no rashes or lesions noted GENERAL SKIN EXAM: no rashes or lesions noted Course Vital Signs: Vital signs: Vital Signs Temperature 98.2 F 07/27/20 07:57 Pulse Rate 66 07/27/20 07:57 Respiratory Rate 16 07/27/20 07:57 Blood Pressure 117/73 07/27/20 07:57 Pulse Oximetry 95 07/27/20 07:57 MDM - Abdominal Pain MDM Narrative: Medical decision making narrative: Patient seen chart reviewed and discussed with JENNI gallardo. Agree with assessment plan. All discussed with the hospitalist will admit for acute diverticulitis with diverticular abscess no perforation Lab Data: Labs: Lab Results 07/26/20 07/26/20 07/26/20 Range/Units 14:29 14:29 14:29 WBC 11.1 H (4.0-10.0) 10^3/ uL RBC 5.73 H (4.1-5.3) 10^6/u L Hgb 17.8 H (11.7-16.6) g/dL Hct 52.9 H (42.0-52.0) % MCV 92.3 (80-94) fL MCH 31.1 (28.0-34.0) pg MCHC 33.6 (30.0-36.0) g/dL RDW 12.2 (12.1-15.1) % Plt Count 196 (130-400) 10^3/c mm MPV 12.1 H (7.4-10.4) fL Neut % (Auto) 83.3 % Lymph % (Auto) 9.5 % [place] % (Auto) 5.9 % Eos % (Auto) 0.6 % Baso % (Auto) 0.3 % Neut # (Auto) 9.24 H (1.8-7.7) 10^3/u L Lymph # (Auto) 1.1 (0.8-4.8) 10^3/u L [place] # (Auto) 0.7 (0.2-0.9) 10^3/u L Eos # (Auto) 0.1 (0.0-0.8) 10^3/u L Baso # (Auto) 0.0 (0.0-0.1) 10^3/u L Nucleated RBC % (a uto) 0 % Nucleated RBCs # 0.0 /100WBC Sodium 134 L (136-145) mmol/L Potassium 4.7 (3.5-5.1) mmol/L Chloride 97 L (98-107) mmol/L Carbon Dioxide 26 (22-29) mmol/L Anion Gap 15.7 (5-19) BUN 7 (6-20) mg/dL Creatinine 0.8 (0.7-1.2) mg/dL GFR Calculation 101.9 (90-130) mL/min Glucose 90 (65-115) mg/dL Calculated Osmolal ity 276 L (285-295) mOsm/k g Lactic Acid 1.2 (0.5-2.2) mmol/L Calcium 9.4 (8.5-10.5) mg/dL Total Bilirubin 0.4 (0.15-1.2) mg/dL AST 31 (0-40) U/L ALT 38 (0-41) U/L Alkaline Phosphata se 119 (40-130) IU/L Total Protein 7.1 (6.6-8.7) g/dL Albumin 4.4 (3.5-5.2) g/dL Globulin 2.7 (1.3-4.6) g/dL Lipase 28 (13-60) U/L Urine Color (Yellow) Urine Appearance (CLEAR) Urine pH (5-7) Ur Specific Gravit y (1.005-1.030) Urine Protein (Negative) Urine Glucose (UA) (Normal) Urine Ketones (Negative) Urine Blood (Negative) Urine Nitrate (Negative) Urine Bilirubin (Negative) Urine Urobilinogen (Negative) mg/dL Ur Leukocyte Carito ase (Negative) Urine RBC (0-2) /hpf Urine WBC (0-5) /hpf Ur Squamous Epith Cells (0-5) /hpf Amorphous Sediment Urine Bacteria (NONE) /hpf 07/26/20 Range/Units 14:50 WBC (4.0-10.0) 10^3/ uL RBC (4.1-5.3) 10^6/u L Hgb (11.7-16.6) g/dL Hct (42.0-52.0) % MCV (80-94) fL MCH (28.0-34.0) pg MCHC (30.0-36.0) g/dL RDW (12.1-15.1) % Plt Count (130-400) 10^3/c mm MPV (7.4-10.4) fL Neut % (Auto) % Lymph % (Auto) % [place] % (Auto) % Eos % (Auto) % Baso % (Auto) % Neut # (Auto) (1.8-7.7) 10^3/u L Lymph # (Auto) (0.8-4.8) 10^3/u L [place] # (Auto) (0.2-0.9) 10^3/u L Eos # (Auto) (0.0-0.8) 10^3/u L Baso # (Auto) (0.0-0.1) 10^3/u L Nucleated RBC % (a uto) % Nucleated RBCs # /100WBC Sodium (136-145) mmol/L Potassium (3.5-5.1) mmol/L Chloride (98-107) mmol/L Carbon Dioxide (22-29) mmol/L Anion Gap (5-19) BUN (6-20) mg/dL Creatinine (0.7-1.2) mg/dL GFR Calculation (90-130) mL/min Glucose (65-115) mg/dL Calculated Osmolal ity (285-295) mOsm/k g Lactic Acid (0.5-2.2) mmol/L Calcium (8.5-10.5) mg/dL Total Bilirubin (0.15-1.2) mg/dL AST (0-40) U/L ALT (0-41) U/L Alkaline Phosphata se (40-130) IU/L Total Protein (6.6-8.7) g/dL Albumin (3.5-5.2) g/dL Globulin (1.3-4.6) g/dL Lipase (13-60) U/L Urine Color Yellow (Yellow) Urine Appearance Clear (CLEAR) Urine pH 6 (5-7) Ur Specific Gravit y 1.010 (1.005-1.030) Urine Protein Neg (Negative) Urine Glucose (UA) Norm (Normal) Urine Ketones Negative (Negative) Urine Blood Neg (Negative) Urine Nitrate Negative (Negative) Urine Bilirubin Neg (Negative) Urine Urobilinogen Norm (Negative) mg/dL Ur Leukocyte Carito ase Negative (Negative) Urine RBC None (0-2) /hpf Urine WBC None (0-5) /hpf Ur Squamous Epith Cells Rare (0-5) /hpf Amorphous Sediment Not Reportable Urine Bacteria Trace (NONE) /hpf Discharge Plan Discharge Patient Disposition: Admitted As Inpatient Admit Provider: Rojas Issa Clinical Impression: Sigmoid diverticulosis Condition: Stable Sign Out Sign Out Data: Patient Sign Out occurred on 07/26/20 at 17:22. Patient's care was discussed, and care was transferred from JENNI Dial to Arya Dodson DO. Sign Out Comment: Pt needs to be admitted.-Diverticulitis with abscess. I started pt on IV flagyl and cipro. Last updated by Sukhwinder Mora PA at 07/26/20 16:55 Coding Level of Care Code ED Practical Nursing Teacher for Chg Fwd Exam Comprehensive
--- NOTE | 2020-07-26 14:39 | CT_ITS ---
WS: [id number] CT ABDOMEN AND PELVIS WITH CONTRAST HISTORY: abdominal pain TECHNIQUE: Imaging performed of the abdomen and pelvis with IV contrast. Single phase imaging of the abdomen. Coronal and sagittal reformats are submitted. All CT scans at [facility] use at least one of these dose optimization techniques: automated exposure control; mA and/or kV adjustment per patient size (includes targeted exams where dose is matched to clinical indication); or iterativ e reconstruction. IV CONTRAST: Omnipaque 300; 95 mL IV. Oral contrast: No DLP: 835.88 mGy.cm COMPARISON: 03/24/2020 Lower thorax: Benign granulomata at the lung bases. No suspicious mass. Heart is normal size. Small h iatal hernia. Liver/biliary system: Normal size with no intrahepatic dilatation. Gallbladder: Moderately well distended gallbladder. There is a stone in the gallbladder lumen towards the neck. This is been present on prior studies. There may be some sludge within the gallbladder. No adjacent inflammation. Pancreas: Normal. Spleen: Normal spleen with granulomata. Adrenal glands: Normal. Right kidney: Normal. Left kidney: Normal. Aorta: Mild atherosclerosis with no aneurysm. Lymphadenopathy: None. Free fluid: Very small amount of free fluid in the pelvis. GI tract: There is significant wall thickening involving the sigmoid colon with numerous diverticula. 12 mm abscess within the wall of the sigmoid mucosa. There are additional numerous small diverticula with adjacent inflammation. No interloop abscess is identified on today's study as on the prior stud y although there is significant inflammation and the diverticula within the area of the previous absc ess are inflamed. Abdominal wall: Unremarkable abdominal wall. No hernia. Pelvis: Well-distended bladder. Bones: Unremarkable. CT/CT abdomen pelvis w con* [id number] IMPRESSION: 1. Acute diverticulitis involving the sigmoid colon. There are numerous inflam ed diverticula with adjacent edema and wall thickening. Mucosal abscess measuri ng 12 mm contained within the sigmoid. No recurrent interloop abscess although there is significant inflammation and numerous diverticula inflamed in this amanda e area as on the prior examination. 2. Tiny amount of free fluid. 3. Cholelithiasis and possible gallbladder sludge. Similar to prior studies.
[2020-07-26 14:42] LABS: Basophils % 0.3 %; Eosinophils # 0.1 10^3/uL (0.0-0.8); Eosinophils % 0.6 %; Hematocrit 52.9 % (42.0-52.0); Hemoglobin 17.8 g/dL (11.7-16.6); Lymphocytes # 1.1 10^3/uL (0.8-4.8); Lymphocytes % 9.5 %; Mean Corpuscular HGB Conc 33.6 g/dL (30.0-36.0); Mean Corpuscular Hemoglobin 31.1 pg (28.0-34.0); Mean Corpuscular Volume 92.3 fL (80-94); Mean Platelet Volume 12.1 fL (7.4-10.4); Monocytes # 0.7 10^3/uL (0.2-0.9); Monocytes % 5.9 %; Neutrophils # 9.24 10^3/uL (1.8-7.7); Neutrophils % 83.3 %; Nucleated Red Blood Cells % 0 %; Platelet Count 196 10^3/cmm (130-400); Red Blood Count 5.73 10^6/uL (4.1-5.3); Red Cell Distribution Width 12.2 % (12.1-15.1); White Blood Count 11.1 10^3/uL (4.0-10.0)
[2020-07-26 15:05] LABS: Alanine Aminotransferase 38 U/L (0-41); Albumin Level 4.4 g/dL (3.5-5.2); Alkaline Phosphatase 119 IU/L (40-130); Anion Gap 15.7 (5-19); Aspartate Amino Transferase 31 U/L (0-40); Blood Urea Nitrogen 7 mg/dL (6-20); Calcium 9.4 mg/dL (8.5-10.5); Carbon Dioxide 26 mmol/L (22-29); Chloride 97 mmol/L (98-107); Globulin 2.7 g/dL (1.3-4.6); Glomerular Filtration Rate 101.9 mL/min (90-130); Glucose 90 mg/dL (65-115); Lipase 28 U/L (13-60); Osmolality Calculated 276 mOsm/kg (285-295); Potassium 4.7 mmol/L (3.5-5.1); Sodium 134 mmol/L (136-145); Total Bilirubin 0.4 mg/dL (0.15-1.2); Total Protein 7.1 g/dL (6.6-8.7)
[2020-07-26] MEDS: sodium chloride 0.9% 1,000 ML 999 ML IV (15:05)
[2020-07-26] MEDS: morphine 4 mg/mL SDV 1 mL IVP ×2 (15:05→15:46)
[2020-07-26] MEDS: ondansetron 2 mg/ML SDV 2 mL 4 MG IVP (15:05)
[2020-07-26] MEDS: iohexol 300 mg/mL 100 mL Btl IV (15:36)
[2020-07-26 16:01] LABS: Add Urine Culture? No; Bacteria Urine TRACE /hpf; Bilirubin Urine Neg (Negative); Blood Urine Neg (Negative); Glucose Urine UA Norm (Normal); Ketones Urine Negative (Negative); Leukocyte Esterase Urine Negative (Negative); Nitrate Urine Negative (Negative); Protein Urine Neg (Negative); Squamous Epithelial Cell Urine RARE /hpf (0-5); Urine Appearance Clear (CLEAR); Urine Color Yellow (Yellow); Urobilinogen Urine Norm (Negative); pH Urine 6 (5-7)
[2020-07-26 17:08] LABS: Lactic Sepsis W/Reflex 1.2 mmol/L (0.5-2.2)
--- NOTE | 2020-07-26 17:53 | P.HP_ITS ---
Providers/Chief Complaint Primary Care Provider: Farhad Miguel MD Chief Complaint: FEELS LIKE DIVERTICULITIS FLARE History of Present Illness Dandre Chaudhary is a 50 year old male with a past medical history of diverticulitis, history of diverticular perforation of sigmoid colon requiring IV antibiotic therapy as outpatient, with a history of pericolonic abscess, follows up with general surgery, infectious disease who presents to [facility] due to abdominal pain. Patient tells me that for the last 24 hours he has had lower abdominal pain, in the left lower and right lower quadrant, associate with abdominal distention, he his last bowel movement was yesterday, he is able to keep down liquids, he is more detailed solids, feels slightly nauseous, no fevers, no chills, no bloody or black stools. Patient presents emergency room due to significant worsening of abdominal pain. Review of Systems Const: Denies: fever(s), chills, fatigue or malaise Eyes: Denies: change in vision or blurry vision ENMT: Denies: nasal congestion Resp: Denies: dyspnea, productive cough, non-productive cough or wheezing GI: Reports: abdominal pain and nausea; Denies: vomiting, hematemesis, diarrhea, constipation, hematochezia or melena : Denies: flank pain, difficulty urinating, dysuria or urinary frequency Musc: Denies: neck pain or back pain Skin/Breast: Denies: rash Neuro: Denies: headache(s), dizziness or vertigo Psych: Denies: anxiety or depression Endo: Denies: polyuria or polydipsia Medications/Allergies Home Medications Medication Instructions Recorded Confirmed Last Taken Type amlodipine 10 mg PO QAM 07/26/20 07/26/20 07/26/20 06:30 History clonidine HCl 0.1 mg PO QAM 07/26/20 07/26/20 07/26/20 06:30 History Allergies Allergy/AdvReac Type Severity Reaction Status Date / Time No Known Allergies Allergy Verified 07/26/20 14:43 PFSH Acute PFSH: Medical History (Updated 07/26/20 @ 17:59 by Rojas Issa MD) Diverticulitis of intestine with perforation and abscess Elevated hemoglobin Hyperglycemia Hypertension Perforated diverticulum of large intestine Surgical History No history of previous surgery Family History Other Hypertension Social History Smoking and tobacco status: current every day smoker cigarettes Packs smoked per day: 1 Years cigarettes smoked: 35 Second hand smoke exposure: Yes Alcohol intake: current Alcohol intake frequency: 3 or more drinks per day Alcohol type: beer Lives independently: Yes Household members: significant other Current occupational status: unemployed Special donna needs: No Vitals/I&O/Wt Last Vital Signs Temp 97.7 F 07/26/20 13:29 Pulse 93 07/26/20 17:29 Resp 16 07/26/20 17:29 BP 140/90 07/26/20 17:29 Pulse Ox 94 07/26/20 17:29 Weight last 48 hrs Weight 86.183 kg Physical Exam Const: COMMON NORMALS: no acute distress and patient oriented x3 GENERAL APPEARANCE: cooperative and comfortable HENMT: COMMON NORMALS: normocephalic HEAD & SCALP: normocephalic Eye: COMMON NORMALS: Equal, round and reactive pupils present GENERAL EYE: appearance normal, both eyes and all related structures PUPIL: Yes Equal, round and reactive pupils present Neck/C-Spine: COMMON NORMALS: full ROM, no lymphadenopathy, no JVD and Thyroid normal THYROID: Thyroid normal Lymph: LYMPHATIC: no lymphadenopathy noted Resp: COMMON NORMALS: normal respiratory effort, No retractions, No use of accessory muscles and clear to auscultation bilaterally AUSCULTATION: clear to auscultation bilaterally Cardio: COMMON NORMALS: no JVD, regular rate, regular rhythm, S1 normal heart sound present, S2 normal heart sound present, No gallops present (Cardio), No clicks present (Cardio) and No murmurs present (Cardio) RATE: regular rate RHYTHM: regular rhythm HEART SOUNDS: S1 normal heart sound present and S2 normal heart sound present GI: COMMON NORMALS: Soft to palpation, non-tender and No hepatosplenomegaly present INSPECTION: Yes normal to inspection and Yes abdominal distension PALPATION: Yes Tenderness to palpation present (GI) Details: LLQ and RLQ and Yes No hepatosplenomegaly present Extremity: COMMON NORMALS: normal to inspection, full ROM and no pedal edema Neuro: COMMON NORMALS: patient oriented x3, CN's II-XII intact bilaterally, moves all extremities and no focal motor deficits Psych: COMMON NORMALS: mental status grossly normal, Normal thought process present and cooperative THOUGHT PROCESS: Normal thought process present Data : 07/26/20 14:29 07/26/20 14:29 A&P Assessment and plan (1) Acute diverticulitis: -History of sigmoid perforation with intra-abdominal abscess, has finished IV ceftriaxone and Flagyl between January and February, will switch to p.o. Cipro Flagyl until March 30 -Follow-up CT scan in March 24 showed decreased size of abdominal abscess -There is concern for high risk of recurrent perforation, due to extensive diverticulosis -There was also concerns for underlying inflammatory bowel disease as additional etiology -Patient has not had any follow-up colonoscopy -ct scan shows: 1. Acute diverticulitis involving the sigmoid colon. There are numerous inflamed diverticula with adjacent edema and wall thickening. Mucosal abscess measuring 12 mm contained within the sigmoid. No recurrent interloop abscess although there is significant inflammation and numerous diverticula inflamed in this same area as on the prior examination. 2. Tiny amount of free fluid. Plan: -General surgery consulted -Keep n.p.o. -IV fluids -Cipro, Flagyl -Serial abdominal exams -Monitor clinical status closely -Full code -Lovenox for DVT prophylaxis Status: Acute (2) Sigmoid diverticulosis: Status: Acute (3) Hypertension: Status: Acute Qualifiers: Hypertension type: essential hypertension Qualified Code(s): I10 - Essential (primary) hypertension Attestations Medical Necessity Statement*: Patient requires hospitalization, inpatient, greater than 2 midnights, for acute diverticulitis Coding Level of Care Code Acute Arc Air Operator for [facility] Diagnoses Acute diverticulitis K57.92 Sigmoid diverticulosis K57.30 Hypertension I10 Hypertension type: essential hypertension
[2020-07-26] MEDS: ciprofloxacin 400 MG/200 ML PREMIX 200 MG IV (18:38)
[2020-07-26] MEDS: metroNIDAZOLE IV 500 MG/100 ML PREMIX 100 MG IV (18:39)
[2020-07-26] MEDS: D5-NS 0.45% + KCL 20 mEq 20 MEQ/1,000 ML BAG 100 MEQ IV (20:46)
[2020-07-26] MEDS: enoxaparin 40 mg/0.4 mL Syringe SUBCUT (20:46)
[2020-07-26] MEDS: famotidine 20 mg/2 mL INJ IVP (21:04)
[2020-07-27] VITALS (10 sets, daily range): BP systolic 117–146; BP diastolic 72–93; PULSE 64–78; RESP 16–18; TEMP 36.5–36.8; O2SAT 93–95
[2020-07-27] MEDS: morphine 4 mg/mL SDV 1 mL 2 MG IVP ×4 (00:36→20:17)
[2020-07-27] MEDS: metroNIDAZOLE IV 500 MG/100 ML PREMIX 100 MG IV ×3 (00:38→17:27)
[2020-07-27 05:57] LABS: Basophils % 0.3 %; Eosinophils # 0.1 10^3/uL (0.0-0.8); Eosinophils % 0.8 %; Hematocrit 49.4 % (42.0-52.0); Hemoglobin 16.4 g/dL (11.7-16.6); Lymphocytes # 1.2 10^3/uL (0.8-4.8); Lymphocytes % 12.4 %; Mean Corpuscular HGB Conc 33.2 g/dL (30.0-36.0); Mean Corpuscular Hemoglobin 31.7 pg (28.0-34.0); Mean Corpuscular Volume 95.4 fL (80-94); Mean Platelet Volume 13.4 fL (7.4-10.4); Monocytes # 0.9 10^3/uL (0.2-0.9); Monocytes % 9.2 %; Neutrophils # 7.45 10^3/uL (1.8-7.7); Neutrophils % 76.9 %; Nucleated Red Blood Cells % 0 %; Platelet Count 180 10^3/cmm (130-400); Red Blood Count 5.18 10^6/uL (4.1-5.3); Red Cell Distribution Width 12.4 % (12.1-15.1); White Blood Count 9.7 10^3/uL (4.0-10.0)
[2020-07-27] MEDS: amlodipine 10 mg Tablet PO (06:01)
[2020-07-27] MEDS: cloNIDine 0.1 mg Tablet PO (06:01)
[2020-07-27] MEDS: ciprofloxacin 400 MG/200 ML PREMIX 200 MG IV ×2 (06:01→15:46)
[2020-07-27] MEDS: D5-NS 0.45% + KCL 20 mEq 20 MEQ/1,000 ML BAG 100 MEQ IV ×2 (06:05→15:47)
[2020-07-27 06:19] LABS: Magnesium 2.2 mg/dL (1.7-2.3)
[2020-07-27 06:23] LABS: Alanine Aminotransferase 44 U/L (0-41); Albumin Level 3.5 g/dL (3.5-5.2); Alkaline Phosphatase 112 IU/L (40-130); Anion Gap 9.2 (5-19); Aspartate Amino Transferase 35 U/L (0-40); Blood Urea Nitrogen 6 mg/dL (6-20); Calcium 8.4 mg/dL (8.5-10.5); Carbon Dioxide 29 mmol/L (22-29); Chloride 103 mmol/L (98-107); Globulin 2.6 g/dL (1.3-4.6); Glomerular Filtration Rate 101.9 mL/min (90-130); Glucose 113 mg/dL (65-115); Osmolality Calculated 282 mOsm/kg (285-295); Potassium 4.2 mmol/L (3.5-5.1); Sodium 137 mmol/L (136-145); Total Bilirubin 0.9 mg/dL (0.15-1.2); Total Protein 6.1 g/dL (6.6-8.7)
[2020-07-27 06:29] LABS: Procalcitonin 0.19 ng/mL (0-0.5)
[2020-07-27 06:40] LABS: C Reactive Protein 66.1 mg/L (0.0-4.9)
[2020-07-27] MEDS: famotidine 20 mg/2 mL INJ IVP ×2 (07:54→20:07)
--- NOTE | 2020-07-27 09:36 | PC.CHAP ---
Pastoral Care Encounter/Spiritual Assessment Type of Contact [] Declined orbitread operator visit [] Patient/Family/Request visit [] Outpatient visit [] Follow-up visit [] Physician referral [] Code/Alert [x] Routine visit [] Staff referral [] Actively dying [] Patient sleeping [] Family support [] [] Out of room [] Palliative care [] [] Receiving care in room [] Pre-surgical visit [] Trauma [] Long length of stay [] ICU visit [] Other: Relational/Emotional Strength [x] Patient feels connected with others/family/visitors/staff [] Distress [] Loneliness/isolation [] Abandonment Spirituality of Patient [x] Person of Nguyen [] Attends Muslim of their Nguyen [] Believes in Prayer [] Reads Bible or Quaker materials [] There are Spiritual issues to be addressed Newsstand Vendor Interventions [x] Prayer [x] Active listening [] Non-anxious presence [] Spiritual/emotional support [] Crisis/trauma care [] Spiritual counseling [] Bereavement support [] Provided bereavement packet [] Provided Bible/devotional materials [] Provided toy/stuffed animal, coloring book to patient or family member [] Provided Communion [] Anointing/[place] [] Salvation [x] Completed spiritual assessment [] Other: Impact on Illness or Injury [] Angry [] Fearful [] Anxious [] Often cries [] Exhaustion [] Unable to work [] Unable to attend gnosticism [] Unable to walk/stand [] Unable to read [] Unable to drive [] Unable to eat/drink [] Unable to sleep [] Unable to be with family [] Patient intubated [] Other: Summary patient lots of pain Time spent with patient 15 min
--- NOTE | 2020-07-27 12:23 | P.PN_ITS ---
Subjective Subjective: Interval history: Patient continues to have right lower quadrant abdominal pain. He had normal formed bowel movement yesterday with no evidence of melena or hematochezia. Continues to rate pain 8 out of 10. Denies shortness of breath or chest pain. Reports that this is his third episode of similar pain and unfortunately because of financial difficulty and lack of insu seema patient could not have colonoscopy before. Vitals/I&O/Wt Last Vital Signs Temp 98.3 F 07/27/20 11:27 Pulse 65 07/27/20 11:27 Resp 17 07/27/20 11:27 BP 128/85 07/27/20 11:27 Pulse Ox 94 07/27/20 11:27 07/26/20 07/27/20 07/27/20 22:59 06:59 14:59 Intake Total 1000 / 1000 1031.667 / 2031.667 480 / 480 Output Total 1000 / 1000 600 / 1600 500 / 500 Balance 0 / 0 431.667 / 431.667 -20 / -20 Weight last 48 hrs Weight 86.183 kg Physical Exam Const: COMMON NORMALS: no acute distress and patient oriented x3 Resp: COMMON NORMALS: normal respiratory effort and clear to auscultation bilaterally AUSCULTATION: clear to auscultation bilaterally Cardio: COMMON NORMALS: regular rate, regular rhythm and S2 normal heart sound present RATE: regular rate RHYTHM: regular rhythm HEART SOUNDS: S2 normal heart sound present OTHER: No lower extremity edema GI: COMMON NORMALS: Normal to inspection, nondistended, normoactive bowel sounds present and Soft to palpation PALPATION: Yes Soft to palpation OTHER: Right lower quadrant abdominal pain without rebound tenderness or guarding. Neuro: COMMON NORMALS: patient oriented x3 and no focal motor deficits Data : 07/27/20 05:07 07/27/20 05:07 A&P Assessment and plan (1) Acute diverticulitis: -History of sigmoid perforation with intra-abdominal abscess, has finished IV ceftriaxone and Flagyl between January and February, will switch to p.o. Cipro Flagyl until March 30 -Follow-up CT scan in March 24 showed decreased size of abdominal abscess -There is concern for high risk of recurrent perforation, due to extensive diverticulosis -There was also concerns for underlying inflammatory bowel disease as additional etiology -Patient has not had any follow-up colonoscopy -ct scan shows: 1. Acute diverticulitis involving the sigmoid colon. There are numerous i nflamed diverticula with adjacent edema and wall thickening. Mucosal abscess measuring 12 mm contained within the sigmoid. No recurrent interloop abscess although there is significant inflammation and numerous diverticula inflamed in this same area as on the prior examination. 2. Tiny amount of free fluid. Plan: -General surgery consulted -Keep n.p.o. -IV fluids -Cipro, Flagyl -Serial abdominal exams -Monitor clinical status closely -Full code -Lovenox for DVT prophylaxis Status: Acute (2) Sigmoid diverticulosis: Status: Acute (3) Hypertension: Status: Acute Qualifiers: Hypertension type: essential hypertension Qualified Code(s): I10 - Es sential (primary) hypertension Additional A&P Information PLAN: Continue current monitoring and treatment with antibiotics. Unusual to see pain on the right side for sigmoid diverticulitis. Patient will need to have colonoscopy performed in several weeks for follow-up. Malignancy will need to be ruled out. Attestations Medical Necessity Statement*: Patient with acute diverticulitis requires close inpatient monitoring and treatment Coding Level of Care Code Acute Presentation Manager for [facility] Diagnoses Acute diverticulitis K57.92 Sigmoid diverticulosis K57.30 Hypertension I10 Hypertension type: essential hypertension
--- NOTE | 2020-07-27 12:27 | P.CONIM_ITS ---
Providers/Reason For Consult Consulting Physican/Specialty*: Galo Moreau MD Reason for Consult*: Perforated diverticulitis Attending Physician: Galo Moreau MD Primary Care Provider: Farhad Miguel MD History of Present Illness History of Present Illness Dandre Chaudhary is a 50 year old male who presented to the ER yesterday with sudden onset of lower abdominal pain bilaterally. Patient denies any nausea, vomiting, constipation or diarrhea. No bleeding per rectum. He had mild abdominal distention but is passing flatus. The pain was made with worse with physical activity, did not radiate, no relieving factors. Patient has been admitted to the hospital in November 2019 with sigmoid diverticulitis with small perforation managed conservatively with oral antibiotics. He was subsequently admitted on 02/12/2020 with sigmoid diverticulitis with microperforation. Patient was discharged home on IV antibiotics and subsequently transition to oral Cipro and Flagyl due to lack of insurance. Patient has not had any colonoscopy and did not follow-up with Dr. Palma since March 2020 Review of Systems General: Reports: 10 or more systems reviewed and unremarkable except in HPI and below Meds/Allergies Home Medications and Allergies Home Medications Medication Instructions Recorded Confirmed Last Taken Type amlodipine 10 mg PO QAM 07/26/20 07/26/20 07/26/20 06:30 History clonidine HCl 0.1 mg PO QAM 07/26/20 07/26/20 07/26/20 06:30 History Allergies Allergy/AdvReac Type Severity Reaction Status Date / Time No Known Allergies Allergy Verified 07/26/20 14:43 Current Medications Current Medications Generic Name Dose Route Start Last Admin Trade Name Freq PRN Reason Stop Dose Admin Amlodipine Besylate 10 mg 07/27/20 06:00 07/27/20 06:01 Amlodipine 10 Mg Tablet PO 10 mg QAM JABIER Administration Clonidine HCl 0.1 mg 07/27/20 06:00 07/27/20 06:01 Clonidine 0.1 Mg Tablet PO 0.1 mg QAM JABIER Administration Enoxaparin Sodium 40 mg 07/26/20 20:07 07/26/20 20:46 Enoxaparin 40 Mg/0.4 Ml Syringe SUBCUT 40 mg Q24H JABIER Administration Famotidine 20 mg 07/26/20 20:07 07/27/20 07:54 Famotidine 20 Mg/2 Ml Inj IVP 20 mg Q12H JABIER Administration Potassium Chloride/Dextrose/Sod Cl 20 meq in 1,000 mls @ 100 mls/hr 07/26/20 20:07 07/27/20 06:05 D5-Ns 0.45% + Kcl 20 Meq IV 100 mls/hr .Q10H JABIER Administration Ciprofloxacin/Dextrose 400 mg in 200 mls @ 200 mls/hr 07/27/20 05:00 07/27/20 06:01 Cipro IV 200 mls/hr Q12H JABIER Administration Protocol Metronidazole 500 mg in 100 mls @ 100 mls/hr 07/27/20 01:00 07/27/20 07:54 Flagyl Iv IV 100 mls/hr Q8H JABIER Administration Protocol Morphine Sulfate 2 mg 07/26/20 20:07 07/27/20 11:19 Morphine 4 Mg/Ml Sdv 1 Ml IVP 2 mg Q4H PRN Administration SEVERE PAIN PFSH Acute PFSH: Medical History (Updated 07/27/20 @ 12:28 by Hugh Rosenthal MD) Diverticulitis of intestine with perforation and abscess Hyperglycemia Hypertension Surgical History No history of previous surgery Family History Other Hypertension Social History Smoking and tobacco status: current every day smoker cigarettes Packs smoked per day: 1 Years cigarettes smoked: 35 Second hand smoke exposure: Yes Alcohol intake: current Alcohol intake frequency: 3 or more drinks per day Alcohol type: beer Lives independently: Yes Household members: significant other Current occupational status: unemployed Special donna needs: No Vitals/I&O/Wt Last Vital Signs Temp 98.3 F 07/27/20 11:27 Pulse 65 07/27/20 11:27 Resp 17 07/27/20 11:27 BP 128/85 07/27/20 11:27 Pulse Ox 94 07/27/20 11:27 07/26/20 07/27/20 07/27/20 22:59 06:59 14:59 Intake Total 1000 / 1.667 1031.667 / 1.667 480 / 480 Output Total 1000 / 1600 600 / 1600 500 / 500 Balance 0 / 431.667 431.667 / 431.667 -20 / -20 Weight last 48 hrs Weight 190 lb Physical Exam Narrative: EXAM NARRATIVE: HEENT: Normocephalic Eye: Sclera /conjunctiva normal Abdomen: Soft to palpation, tender suprapubic left lower quadrant and right upper lower quadrant, voluntary guarding, no rigidity Neurological: Oriented to place person and time Skin: Intact, no lesions appreciated on gross exam A&P Assessment and plan (1) Acute diverticulitis: 50-year-old male with third hospitalization since November 2019 for sigmoid diverticulitis with microperforation and abscess. CT abdomen and pelvis revealed a 12 mm pericolonic abscess. Patient is clinically better after being started on IV antibiotics. I will start him on a clear liquid diet and hopefully can be transitioned to oral antibiotics and full liquid diet which can be advanced as tolerated upon discharge. Discussed this case with Dr. Mathis who will follow up with him as an outpatient for colonoscopy and possible surgery Status: Acute Coding Level of Care Code Acute Dialysis Registered Nurse for [facility] Diagnoses Acute diverticulitis K57.92
[2020-07-27] MEDS: enoxaparin 40 mg/0.4 mL Syringe SUBCUT (20:08)
--- NOTE | 2020-07-27 20:19 | NUR.SHIFT ---
PRN Morphine 2mg IVP given for pain rated 7 on 1-10 Pain scale
[2020-07-28] VITALS (7 sets, daily range): BP systolic 116–144; BP diastolic 75–90; PULSE 60–71; RESP 18; TEMP 37.1–37.4; O2SAT 95–96
[2020-07-28] MEDS: morphine 4 mg/mL SDV 1 mL 2 MG IVP (00:13)
[2020-07-28] MEDS: D5-NS 0.45% + KCL 20 mEq 20 MEQ/1,000 ML BAG 100 MEQ IV (01:53)
[2020-07-28] MEDS: metroNIDAZOLE IV 500 MG/100 ML PREMIX 100 MG IV ×2 (01:54→08:43)
[2020-07-28] MEDS: cloNIDine 0.1 mg Tablet PO (05:15)
[2020-07-28] MEDS: ciprofloxacin 400 MG/200 ML PREMIX 200 MG IV (05:15)
[2020-07-28] MEDS: amlodipine 10 mg Tablet PO (05:16)
[2020-07-28 06:27] LABS: Magnesium 1.9 mg/dL (1.7-2.3); Phosphorus 2.8 mg/dL (2.5-4.5)
--- NOTE | 2020-07-28 07:07 | P.PN_ITS ---
Subjective Subjective: Interval history: Patient continues to complain of right lower quadrant pain, passing flatus, no nausea or vomiting Vitals/I&O/Wt Last Vital Signs Temp 99.3 F 07/28/20 05:18 Pulse 67 07/28/20 05:18 Resp 18 07/28/20 05:18 BP 144/89 07/28/20 05:18 Pulse Ox 95 07/28/20 05:18 07/27/20 07/28/20 07/28/20 22:59 06:59 14:59 Intake Total 1390 / 3710 1300 / 3710 Output Total 600 / 2900 1800 / 2900 Balance 790 / 810 -500 / 810 Weight last 48 hrs Weight 190 lb Physical Exam Narrative: EXAM NARRATIVE: Abdomen: Soft, mildly tender right lower quadrant, no guarding or rigidity Data : 07/27/20 05:07 07/27/20 05:07 A&P Assessment and plan (1) Acute diverticulitis: 50-year-old male with third hospitalization since November 2019 for sigmoid diverticulitis with microperforation and abscess. CT abdomen and pelvis revealed a 12 mm pericolonic abscess. Patient is clinically better after being started on IV antibiotics. DC morphine, start [place] 10/25/2024 every 6 as needed Advance to full liquid diet Hopefully patient can go home on 10 days of oral Cipro and Flagyl and advance diet as tolerated with plan to follow-up with Dr. Mathis in 2 weeks Status: Acute Attestations Medical Necessity Statement*: Perforated sigmoid diverticulitis Coding Level of Care Code Acute Rodeo Performer for [facility] Diagnoses Acute diverticulitis K57.92
[2020-07-28 07:08] LABS: C Reactive Protein 105.3 mg/L (0.0-4.9)
[2020-07-28] MEDS: HYDROcodone-acetaminophen 5-325 mg Tablet 1 TAB PO (07:40)
[2020-07-28] MEDS: famotidine 20 mg/2 mL INJ IVP (07:40)
--- NOTE | 2020-07-28 07:57 | PC.NURSE ---
IV insertion IV insertion by student nurse Maria A was supervised by this nursing staff development coordinator. Documentation from the student nurse is appropriate for the procedure. pt tolerated procedure well. additional IV removed from the left ac. cath tip intact.
--- NOTE | 2020-07-28 11:23 | P.DS_ITS ---
Discharge Providers Date of Admission: 07/26/20 20:07 Date of Discharge: July 28, 2020 Attending Provider at Admission: Rojas Issa MD Attending Provider at Discharge: Galo Moreau MD Primary Care Provider: Farhad Miguel MD Diagnoses at Discharge Discharge Diagnosis (1) Acute diverticulitis: Status: Acute Reason for Visit Reason for Visit: FEELS LIKE DIVERTICULITIS FLARE Hospital Course Hospital Course Patient presented with repeated episodes of diverticulitis. He was noted to have 12 mm pericolonic abscess. He was seen by Dr. Rosenthal and since patient clinically improved after initial treatment with IV antibiotic it felt safe for patient to be dismissed home on ciprofloxacin and Flagyl for 10 more days with outpatient follow-up with Dr. Beverly for colonoscopy. I have discussed with patient regarding importance of colonoscopy in several weeks after treatment to make sure there is no underlying concerning lesions. Patient voiced understanding and agreed. This morning he reports feeling much better. He still has minimal pain mostly on his right lower quadrant but much improved compared to his initial presentation. He is passing gas but did not have any bowel movements since his last 1. He denies being nauseous and tolerates oral intake well. He denies shortness of breath or chest pain. Physical Exam Narrative: EXAM NARRATIVE: Exam shows clear lungs and regular heart. His abdomen is slightly tender at the right lower quadrant. No distention, rebound tenderness or guarding. Discharge Data Data Completed and Pending: Completed Studies During Hospitalization Category Date Time Status CT abdomen pelvis w con* [id number] Urge nt Cat Scan 07/26/20 14:39 Completed Pending at discharge Category Date Time Status C Reactive Protei n AM LABS Lab 07/29/20 04:00 Ordered Magnesium AM LABS Lab 07/29/20 04:00 Ordered Phosphorus AM LAB S Lab 07/29/20 04:00 Ordered Labs from last 24 hours 07/28/20 07/28/20 05:48 05:48 Phosphorus 2.8 Magnesium 1.9 C-Reactive Protein 105.3 H Vitals: Last Vital Signs Temp 98.9 F 07/28/20 07:51 Pulse 71 07/28/20 07:51 Resp 18 07/28/20 07:51 BP 136/90 07/28/20 07:51 Pulse Ox 96 07/28/20 07:51 Discharge Plan Discharge Patient Disposition: Home Condition: Stable Prescriptions: New hydrocodone-acetaminophen 5-325 mg Tablet 1 tab PO Q6H PRN (Reason: Moderate Pain) Qty: 20 RF: 0 ciprofloxacin HCl [Cipro] 500 mg tablet 500 mg PO BID Qty: 20 RF: 0 metronidazole [Flagyl] 500 mg tablet 500 mg PO Q8H 7 Days Qty: 30 RF: 0 Continued clonidine HCl 0.1 mg tablet 0.1 mg PO QAM RF: 0 amlodipine 10 mg tablet 10 mg PO QAM RF: 0 Discharge Orders: Discharge Order (Routine); Ordered 07/28/20 Ordered By: Galo Moreau Referrals: Farhad Miguel MD [Primary Care Provider] - 4-7 days Mayo Palma MD [Physician] - 2 weeks Discharge Diet: Advance as tolerated Discharge Activity: Increase activity as tolerated Activity Restrictions/Additional Instructions: Please call your doctor or present to emergency department if your condition worsens or you develop diarrhea. Please make sure you follow-up with Dr. Beverly to arrange outpatient colonoscopy in several weeks as we have discussed. Discharge Attestations Time Spent in Discharge Care*: greater than 30 min Status at Discharge: Cognitive status at discharge: cognitively intact , Behavioral status at discharge: cooperative , Quality Metrics Clinical Quality Measures During this hospital stay, did patient experience: None Coding Level of Care Code Acute Acetone Button Paster for [facility] Diagnoses Acute diverticulitis K57.92
--- NOTE | 2020-07-28 12:27 | PC.NURSE ---
DISCHARGE INSTRUCTIONS DISCHARGE INSTRUCTIONS GIVEN TO PT AND - WELL HYDROCODONE HARD SCRIPT -- BOTH VERBALIZE UNDERSTANDING - TAKEN VIA W/C TO PRIVATE CAR
== END 2020-07-28 12:29 | disposition home or self-care (01) | DRG 392 ==
LOC: ER 17:23 → MEDSURG 07-27 05:44
PROVIDERS: Physician Assistant; Admitting Provider Family Medicine; Emergency Provider Family Medicine; PCP Family Medicine Adult Medicine; Visit Provider Internal Medicine
DX: K57.20 Diverticulitis of large intestine with perforation and abscess without bleeding (principal); I10 Essential (primary) hypertension; F17.210 Nicotine dependence, cigarettes, uncomplicated
CPT/HCPCS: 12345; 36415; 74177; 80053; 81001; 83605; 83690; 83735; 84100; 84145; 85025; 86140; 96372; 99283; J0744; J1650; J2270; J2405; J3490; J7030; Q9967; S0030

== ENCOUNTER → 2020-09-10 08:18 | Outpatient (BNVA) | payer OTHER, SELFPAY | PROVIDERS: PCP Family Medicine Adult Medicine; Visit Provider Surgery | DX: K57.30 Diverticulosis of large intestine without perforation or abscess without bleeding (principal) | CPT/HCPCS: 87635 ==

== ENCOUNTER 2020-09-15 05:55 | Day surgery (SDC) | payer SELFPAY ==
[2020-09-13 13:02] VITALS: BMI 27.3
[2020-09-15 06:15] VITALS: BP 122/88; PULSE 70; RESP 18; TEMP 36.6; O2SAT 95
--- NOTE | 2020-09-15 06:17 | W.PM.OPSUD ---
Surgery/Procedure H&P Update DATE OF PROCEDURE: September 15, 2020 DATE H&P PERFORMED: 08/23/20 H&P UPDATE INFORMATION: I have reviewed H&P completed within last 30 days, I have examined patient prior to procedure and No changes to prior documentation PREOP DIAGNOSIS: Sigmoid diverticulitis PRIMARY INDICATION FOR PROCEDURE: The same PLANNED PROCEDURE: Operation Date: 09/15/20 07:00 Proposed Procedures p Colonoscopy 09403 K57.30(Not Applicable) - Mayo Palam MD
[2020-09-15] MEDS: sodium chloride 0.9% 1,000 ML 30 ML IV (06:18)
--- NOTE | 2020-09-15 06:43 | P.ANESASSM_ITS ---
Pre-Anesthetic Assessment Pre-Anesthetic Assessment: Height/Weight: Height 1.73 m Weight 81.647 kg Temp Pulse Resp BP Pulse Ox 97.9 F 70 18 122/88 95 09/15/20 06:15 09/15/20 06:15 09/15/20 06:15 09/15/20 06:15 09/15/20 06:15 Preop Diagnosis: Sigmoid diverticulitis Proposed Procedure: Operation Date: 09/15/20 07:00 Proposed Procedures p Colonoscopy 51724 K57.30(Not Applicable) - Mayo Palma MD Familial anesthetic complications: none. Was Beta Fabricio taken within 24 hours: N/A Was Clonidine taken within 24 hours: Yes (No) Last intake: Intake Last Liquid Date 09/14/20 Last Solid Date 09/13/20 Social: Social History: Tobacco Comment: didnt smoke today. Exam: Pre-Anes Outpt Exam: alert, oriented x 3, clear to auscultation bilater ally and regular rate & rhythm Airway: Submandibular: WNL Cervical ROM: WNL MP: 2 Dentition: Chipped History/ROS: No significant history except as noted Pulmonary: Pulmonary: None reported Comments: patient states he snores and probably has undiagnosed KAITLYN. CV/HEM: CV/HEM: HTN : : None reported Hepatic: Hepatic: None reported GI: GI: GERD (diet related. no symptoms.) Metabolic: Metabolic: None reported Musc/skel: Musc/skel: None reported Neuropsych: Neuropsych: None reported Anesthetic Plan: ASA status: 3 Anesthesia: Anesthesia Evaluation and MAC Risk of > 500 ml blood loss (7ml/kg in children): No Meds/Allergies Current Medications: Current Medications Generic Name Dose Route Start Last Admin Trade Name Freq PRN Reason Stop Dose Admin Sodium Chloride 1,000 mls @ 30 ml s/hr 09/15/20 06:15 09/15/20 06:18 Sodium Chloride 0.9% IV 30 mls/hr .Q24H JABIER Administration PFSH Anesthesia PFSH: Medical History Diverticulitis of intestine with perforation and abscess Hyperglycemia Hypertension Surgical History No history of previous surgery Family History Other Hypertension Social History Smoking and tobacco status: current every day smoker cigarettes Packs smoked per day: 1 Years cigarettes smoked: 35 Second hand smoke exposure: Yes Alcohol intake: current Alcohol intake frequency: 3 or more drinks per day Alcohol type: beer Lives independently: Yes Household members: significant other Current occupational status: unemployed Special donna needs: No Data Anesthesia Cardiac Studies: No Data to Display
[2020-09-15 07:11] VITALS: BP 109/78; PULSE 71; RESP 18; TEMP 36.3; O2SAT 93
[2020-09-15 07:24] VITALS: BP 133/98; PULSE 67; RESP 18; O2SAT 95
--- NOTE | 2020-09-15 08:22 | ANE.PACU2 ---
Inpatient post-anesthesia follow up: Airway intact: Yes Vital signs: Temperature 97.4 F Pulse Rate 67 Respiratory Rate 18 Blood Pressure 133/98 Pulse Oximetry 95 Oxygen Delivery Me thod Room Air Oxygen Flow Rate Fraction of Inspir ed Oxygen Hydration adequate: Yes Nausea and vomiting: Yes Mental status: Baseline
== END 2020-09-15 07:35 | disposition home or self-care (01) ==
PROVIDERS: PCP Family Medicine Adult Medicine; Visit Provider Surgery
PROC: 0DJD8ZZ Inspection of Lower Intestinal Tract, Via Natural or Artificial Opening Endoscopic (ICD-10-PCS; CPT 45378; principal; 2020-09-15 07:00)
DX: K57.92 Diverticulitis of intestine, part unspecified, without perforation or abscess without bleeding (principal); K57.30 Diverticulosis of large intestine without perforation or abscess without bleeding; I10 Essential (primary) hypertension; F17.210 Nicotine dependence, cigarettes, uncomplicated
CPT/HCPCS: 45378; 96360; J2704; J7030

== ENCOUNTER → 2020-09-16 11:57 | Outpatient (BNVA) | payer OTHER, SELFPAY | PROVIDERS: PCP Family Medicine Adult Medicine; Visit Provider Surgery | DX: K57.30 Diverticulosis of large intestine without perforation or abscess without bleeding (principal) | CPT/HCPCS: 87635 ==

== ENCOUNTER 2020-09-21 16:00 | Inpatient (IN) | payer SELFPAY ==
[2020-09-21] VITALS (20 sets, daily range): BP systolic 128–166; BP diastolic 77–108; PULSE 78–107; RESP 16–22; TEMP 36.8–37.7; O2SAT 90–99
[2020-09-21] MEDS: acetaminophen 1,000 MG/100 ML PIGGYBACK 400 MG IV (08:11)
[2020-09-21] MEDS: sodium chloride 0.9% 1,000 ML 30 ML IV (08:12)
[2020-09-21] MEDS: heparin 5,000 unit/mL INJ 1 mL 2000 UNIT SUBCUT (08:13)
--- NOTE | 2020-09-21 08:37 | ANES.PREANE2 ---
Pre-Anesthetic Assessment Pre-Anesthetic Assessment: Height/Weight: Height 1.73 m Weight 81.647 kg Temp Pulse Resp BP Pulse Ox 98.5 F 81 18 147/103 97 09/21/20 07:54 09/21/20 07:54 09/21/20 07:54 09/21/20 07:54 09/21/20 07:54 Preop Diagnosis: Recurrent sigmoid diverticulitis Proposed Procedure: Operation Date: 09/21/20 11:15 Proposed Procedures p Laparoscopic Sigmoidectomy, poss open [id number] K57.30(Not Applicable) - Mayo Palma MD s flexible Sigmoidoscopy(Not Applicable) - Mayo Palma MD Familial anesthetic complications: none Was Beta Fabricio taken within 24 hours: N/A Was Clonidine taken within 24 hours: N/A Last intake: Intake Last Liquid Date 09/21/20 Last Liquid Time 06:00 Last Solid Date 09/19/20 Last Solid Time 18:00 Social: Social History: Tobacco and No alcohol Exam: Pre-Anes Outpt Exam: alert, oriented x 3, clear to auscultation bilaterally and regular rate & rhythm Airway: Cervical ROM: WNL MP: 2 Dentition: Chipped CV/HEM: CV/HEM: HTN Anesthetic Plan: ASA status: 2 Anesthesia: General Risk of > 500 ml blood loss (7ml/kg in children): No Meds/Allergies Current Medications: Current Medications Generic Name Dose Route Start Last Admin Trade Name Freq PRN Reason Stop Dose Admin Sodium Chloride 1,000 mls @ 30 ml s/hr 09/21/20 08:00 09/21/20 08:12 Sodium Chloride 0.9% IV 09/22/20 07:59 30 mls/hr .Q24H JABIER Administration PFSH Anesthesia PFSH: Medical History (Updated 09/15/20 @ 07:12 by Mayo Palma MD) Acute diverticulitis Diverticulitis of intestine with perforation and abscess Hyperglycemia Hypertension Sigmoid diverticulosis Surgical History No history of previous surgery Family History Other Hypertension Social History Smoking and tobacco status: current every day smoker cigarettes Packs smoked per day: 1 Years cigarettes smoked: 35 Second hand smoke exposure: Yes Alcohol intake: current Alcohol intake frequency: 3 or more drinks per day Alcohol type: beer Lives independently: Yes Household members: significant other Current occupational status: unemployed Special donna needs: No Data Anesthesia Cardiac Studies: No Data to Display
--- NOTE | 2020-09-21 09:38 | W.PM.OPSUD ---
Surgery/Procedure H&P Update DATE OF PROCEDURE: September 21, 2020 DATE H&P PERFORMED: 08/23/20 H&P UPDATE INFORMATION: I have reviewed H&P completed within last 30 days, I have examined patient prior to procedure, No changes to prior documentation and Changes to prior documentation as noted here CHANGES TO PREVIOUS DOCUMENTATION: Patient undergone a colonoscopy that showed sigmoid colon diverticulosis. PREOP DIAGNOSIS: Recurrent sigmoid diverticulitis PRIMARY INDICATION FOR PROCEDURE: The same PLANNED PROCEDURE: Operation Date: 09/21/20 11:15 Proposed Procedures p Laparoscopic Sigmoidectomy, poss open [id number] K57.30(Not Applicable) - Mayo Palma MD s flexible Sigmoidoscopy(Not Applicable) - Mayo Palma MD
[2020-09-21] MEDS: piperacillin-tazobactam 3.375 GM in sodium chloride 0.9% (plus) 50 ML IV ×2 (10:06→18:23)
--- NOTE | 2020-09-21 11:36 | SUR.OPER ---
called family with update
--- NOTE | 2020-09-21 14:18 | SUR.OPER ---
called family with update
--- NOTE | 2020-09-21 15:29 | P.OP_ITS ---
Operative Report Date of procedure: September 21, 2020 Pre-op Diagnosis: Recurrent sigmoid diverticulitis Post-op diagnosis: same Post-op Findings: Scarred down sigmoid colon Procedure Done: Laparoscopic sigmoid colectomy with colorectal anastomosis Laparoscopic extensive adhesiolysis exceeded 1 hour of the operation time Implants: 2 pieces of Surgicel 1 placed onto the DAMIR pedicle and another portion was placed onto the left lateral wall of the abdomen. Specimens removed/disposition: Sigmoid colon sutures marked proximal Staple line Colorectal anastomosis donuts proximal and distal Surgeon: Mayo Palma Chiseler Head: Surgeon undertaker assistant Dr. Rosenthal surgical techs Becca and Kristofer followed by Facundo MARTEL Medical student Maryan Conrad Circulating nurses Angie Youssef and followed by Erna Anesthesia: General (CHRISTAL Merino/Dr. Mclaughlin) Estimated blood loss (mL): 150 IV fluids (mL): 1,600 Urine output (mL): 550 Condition: stable Disposition: floor Brief History: 50 years old gentleman with history of recurrent sigmoid diverticulitis. Full H&P and informed consent per chart Procedure: The patient was brought to the operating room and was placed in a supine position on the operating room table.General endotracheal anesthesia was induced.Time-out was done verifying the patient's name/date of /planned procedure and destination after the procedure, all were in agreement. SCDs confirmed to be functioning, preoperative antibiotics administered per protocol, and beta bebe protocol was confirmed.Heparin subcu was given prior to the pr ocedure director of professional services to the OR. Patient was secured to the operating table and all pressure points were padded and secured by myself and the circulating nurse prior to the procedure. Anesthesia provider was asked by me to check by tilting the OR table [id number] to make sure that the patient is secured and he was. The abdomen was prepped and draped in a sterile fashion. Started by longitudinal skin incision supra umbilical using a Peralta trocar technique safe entry to the abdominal cavity was achieved verified by using 10 mm zero degree laparoscopy, switched to a 30? scope, a 12 mm trocar was inserted at the right lower direct visualization, followed by a 5 mm trocar was inserted at the right upper quadrant under direct visualization and another 5 mm trocar was inserted to the left side of the abdomen under direct visualization. Extensive intra-abdominal adhesions were adhesio lysed and the left lower and upper quadrant, time taken exceeded one hour.There were some bowel loops towards the terminal ileum had adhesions towards the sigmoid,adhesions were taken down with sharp dissection without injuring the bowels. I started by mobilizing the sigmoid colon through the line of Toldt using the laparoscopic LigaSure device and the left ureter was identified there, dissection was done safely without injuring the left ureter.A severely scarred sigmoid colon portion was identified and dissected from the lateral abdominal. I was able to identify and skeletonized the DAMIR pedicle and 45 mm vascular GI load was applied to secure the DAMIR pedicle, there was some oozing from the staple line that followed by figure of eight 2-0 silk sutures laparoscopically placed followed by a piece of Surgicel. At that point I continued dissection and mobilizing the left side of the colon up to the splenic flexure and the distal part of the transverse colon without causing any injury or harm to the spleen, followed by that via the 12 mm trocar introduced and endoscopic stapler device using green load 45 mm and was angled in a way to divide the junction between the distal sigmoid and the healthy upper rectum, division was achieved after 3 loads of the green load as the sigmoid colon was thick at this point. At that point I created transverse incision at the left 5 mm trocar site were and the wound protection device was placed, I was able to deliver the distal sigmoid colon Inclusive for the diseased sigmoid colon segment, [facility] 45 blue load was fired to divide the diseased sigmoid colon from the distal descending colon and the sigmoid colectomy specimen was marked sutures proximal portion and passed to the circulating nurse for permanent pathology. Attention was deviated at the proximal colon were the staple line was taken off with Marito scissors and sent also for pathology.The colon was sized and a size 29 EEA stapler was decided upon.The anvil was sewn into the proximal sigmoid(healthy edges of the colon with bleeding points) with a running suture of 3-0 Prolene and 3-0 Vicryl ,that part of the colon was dropped back into the abdominal cavity.And a good seal was obtained by the wound protection device.Gloves were changed,at this point additional mobilization was obtained due to the adherence of the omentum to the proximal part of the colon by mobilizing the splenic flexure under direct visualization to allow tension-free anastomosis.at that point my partner Dr. Galo scrubbed in and The EEA was introduced through the rectum by him and the EEA was opened through the distal staple line. The anvil was connected and was slowly screwed down until the 2 limbs of bowel were contacting each other with good orientation of the mesentery of the colon. The Surrounding structures were again confirmed to be out of the area and the EEA was fired.The EEA was removed and 2 intact colonic rings of tissue were found in the EEA. Both doughnuts as well as the proximal sigmoid staple line were sent to pathology. The pelvis was again irrigated and while some irrigation was still in the pelvis a flexible sigmoidoscope was used to inflate the distal colon via the rectum.I placed a bowel grasper onto proximal portion of the colon to the staple line. The colon filled very well and no air leaks were seen under a level of saline in the pelvis.Further irrigation and suction of abdomen and pelvis.No ongoing bleeding or or injuries identified. I did grab one of the longer appendices epiploicae and laid it on the staple line and 5 mm clips were applied to secure it in place Bilateral TAP (transversus abdominous plain peripheral nerve block )block using Exparel 20 mL Exparel 40 ml Normal saline 20 ml bupivacaine 0.25% 30 mL on each side injected 20 mL injected the port sites A final look laparoscopy showed no injuries or bleeding. All trocars were taken out under direct visualization and closure of the left lateral incision was done in 2 layers using PDS sutures, the right lower quadrant 12 mm trocar site as well and supraumbilical trocar site were closed by #1 PDS sutures and all trocar sites were closed by skin otf, dressing was applied, all wounds were thoroughly irrigated prior to closure. Bertrand catheter was kept in place Counts of sponges,needles and instruments were completed at the end of the procedure. Patient tolerated the procedure well and got extubated and was taken directly to the PACU area I was present for the whole entire procedure. Due to medical necessity.Surgeon undertaker assistant is required to assist in this procedure in the form of; Introduced the EEA via the anus, and assist in performing colorectal anastomosi s, followed by introduction of the flex sigmoidoscopy to rule out potential leak or bleeding.
[2020-09-21] MEDS: labetalol 5 mg/mL SDV 20mL 10 MG IVP ×3 (15:48→21:53)
[2020-09-21] MEDS: HYDROmorphone 1 mg/mL INJ 1 mL IVP ×2 (15:48→22:28)
--- NOTE | 2020-09-21 17:11 | SUR.PHASEI ---
1639 PT TO FLOOR AWAKES TO VOICE, OTHERWISE SLEEPS WITH SNORING RESP , BP BETTER NOW WITH DIASTOLIC 97 WITH FIRST VS ON FLOOR HANDOFF TO SHEILA RENEE AT BEDSIDE, ABD SOFT WITH 4 SITES STILL D/I ICE BAGS X [address] SCHNEIDER ORDER. S/O TO BEDSIDE PT AWAKES AND TALKATIVE. SATS ON RA 90% ON 2LNC SATS 97%
[2020-09-21] MEDS: morphine 4 mg/mL SDV 1 mL 2 MG IVP ×2 (17:57→20:39)
[2020-09-21] MEDS: lactated ringers 1,000 ML 125 ML IV (17:58)
[2020-09-21] MEDS: famotidine 20 mg/2 mL INJ IVP (17:58)
--- NOTE | 2020-09-21 19:03 | ANE.PACU2 ---
Inpatient post-anesthesia follow up: Airway intact: Yes Vital signs: Temperature 99.8 F Pulse Rate 79 Respiratory Rate 18 Blood Pressure 152/103 Pulse Oximetry 94 Oxygen Delivery Me thod Nasal Cannula Oxygen Flow Rate 3 Fraction of Inspir ed Oxygen Hydration adequate: Yes Nausea and vomiting: No Pain level: 1 Mental status: Baseline
--- NOTE | 2020-09-21 22:59 | PC.NURSE ---
Spoke with physician stated to make sure patient is using his IS and ice packs. Gave physicians report of vital signs and he wants to titrate oxygen from 3 liters NC to 2 liters NC as tolerated.
[2020-09-22] VITALS (14 sets, daily range): BP systolic 126–149; BP diastolic 79–89; PULSE 62–72; RESP 16–20; TEMP 36.8–37.3; O2SAT 92–98
[2020-09-22] MEDS: morphine 4 mg/mL SDV 1 mL 2 MG IVP ×2 (01:59→20:04)
[2020-09-22] MEDS: piperacillin-tazobactam 3.375 GM in sodium chloride 0.9% (plus) 50 ML IV ×2 (02:20→11:57)
[2020-09-22] MEDS: HYDROmorphone 1 mg/mL INJ 1 mL IVP ×5 (03:54→21:40)
[2020-09-22] MEDS: famotidine 20 mg/2 mL INJ IVP ×2 (04:35→16:42)
[2020-09-22] MEDS: lactated ringers 1,000 ML 125 ML IV ×3 (05:15→19:45)
--- NOTE | 2020-09-22 06:15 | P.PN_ITS ---
Subjective Subjective: Interval history: Patient overall feels well, pain is under better control now. Urine output 1200 cc clear urine Patient reports that his right elbow is moving better as he did have some episodes of difficulty in moving his right elbow even before surgery, but he feels better now. Medications: Reviewed: Yes Vitals/I&O/Wt Last Vital Signs Temp 98.3 F 09/22/20 03:25 Pulse 72 09/22/20 03:25 Resp 16 09/22/20 03:54 BP 149/81 09/22/20 03:25 Pulse Ox 98 09/22/20 03:25 09/21/20 09/21/20 09/22/20 14:59 22:59 06:59 Intake Total 150 / 150 600 / 750 1050 / 1800 Output Total 1999 / 1999 2500 / 4500 Balance 150 / 150 -1400 / -1250 -1450 / -2700 Weight last 48 hrs Weight 180 lb Physical Exam Narrative: EXAM NARRATIVE: Patient is conscious alert oriented X3 BMI 27.4 Head and neck examination PERRLA no masses no cervical lymphadenopathy no jaundice Cardiac examination audible S1-S2 no murmurs no gallops no arrhythmias Chest is clear bilateral,abscence of Rhonchi or wheezes,no surgical emphysema Abdomen nontender except at the incision sites nondistended soft no organomegaly guarding or rigidity/no signs of peritonitis. Dressing in place dry and intact Bertrand cath in place with clear urine Extremities no cyanosis no clubbing no edema Patient moves all extremities Urinary Catheter Management^: Bertrand: Cath Placed During This Visit: yes Reason for Continuing Indwelling Catheter: Perioperative Use in Selected Surgeries Urinary Catheter Date of Insertion: 09/21/20 Urinary Catheter Time of Insertion: 10:48 Data : 09/23/20 02:08 09/23/20 02:08 A&P Assessment and plan (1) S/P laparoscopic colectomy: Patient undergone laparoscopic sigmoid colectomy with colorectal anastomosis 09/21/2020 Continue n.p.o. status, can have blood pressure medication with a sip of water Awaiting bowel function DC Bertrand catheter Encourage ambulation Following on a.m. labs Will DC IV antibiotics after second dose postoperatively Assurance and education All questions have been answered and all concerns have been addressed to patient's satisfaction. Status: Acute Attestations Medical Necessity Statement*: Inpatient hospitalization for postoperative care status post sigmoid colectomy and awaiting bowel functions Time Spent in Patient Care: (>than 50% of time spent in counselling and/or direct pt care on unit) . 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
[2020-09-22 06:58] LABS: Hematocrit 44.8 % (42.0-52.0); Hemoglobin 15.1 g/dL (11.7-16.6)
[2020-09-22 07:22] LABS: Anion Gap 13.2 (5-19); Blood Urea Nitrogen 8 mg/dL (6-20); Calcium 8.2 mg/dL (8.5-10.5); Carbon Dioxide 25 mmol/L (22-29); Chloride 102 mmol/L (98-107); Glomerular Filtration Rate 175.3 mL/min (90-130); Glucose 120 mg/dL (65-115); Osmolality Calculated 282 mOsm/kg (285-295); Potassium 4.2 mmol/L (3.5-5.1); Sodium 136 mmol/L (136-145)
[2020-09-22] MEDS: cloNIDine 0.1 mg Tablet PO (07:27)
--- NOTE | 2020-09-22 14:07 | PC.NURSE ---
Update given to Dr. Palma. New orders give. Informed patient that he can slowly begin ice chips and Popsicle. pt verbalized understanding of going slow with oral intake.
--- NOTE | 2020-09-22 17:22 | PC.RESP ---
Smoking Cessation information sent to patient.
--- NOTE | 2020-09-22 19:05 | PC.NURSE ---
contacted about IV antibiotics order. verbal order recieved to yary/riaz lewis.
[2020-09-23] VITALS (14 sets, daily range): BP systolic 118–149; BP diastolic 76–87; PULSE 59–70; RESP 16–20; TEMP 36.7–37.4; O2SAT 93–95
[2020-09-23] MEDS: morphine 4 mg/mL SDV 1 mL 2 MG IVP ×7 (02:18→22:51)
[2020-09-23 02:56] LABS: Hematocrit 40.5 % (42.0-52.0); Hemoglobin 13.4 g/dL (11.7-16.6)
[2020-09-23 03:21] LABS: Anion Gap 11.9 (5-19); Blood Urea Nitrogen 9 mg/dL (6-20); Calcium 8.2 mg/dL (8.5-10.5); Carbon Dioxide 27 mmol/L (22-29); Chloride 103 mmol/L (98-107); Creatinine Clr Calc Pharmacy 130.1427; Glomerular Filtration Rate 118.9 mL/min (90-130); Glucose 91 mg/dL (65-115); Osmolality Calculated 284 mOsm/kg (285-295); Potassium 3.9 mmol/L (3.5-5.1); Sodium 138 mmol/L (136-145)
[2020-09-23] MEDS: famotidine 20 mg/2 mL INJ IVP ×2 (03:40→15:19)
[2020-09-23] MEDS: lactated ringers 1,000 ML 125 ML IV ×3 (03:49→20:53)
[2020-09-23] MEDS: cloNIDine 0.1 mg Tablet PO (05:38)
--- NOTE | 2020-09-23 06:23 | PM.PN ---
Subjective Subjective: Interval history: Per nursing staff patient had appropriate night yet does require IV narcotics for pain control. Good urine output and did not pass gas yet. Patient overall feels well and reports his pain under control No acute events overnight except that the patient reports coughing up phlegm Medications: Reviewed: Yes Vitals/I&O/Wt Last Vital Signs Temp 99.4 F 09/23/20 04:17 Pulse 70 09/23/20 04:17 Resp 16 09/23/20 05:26 BP 142/83 09/23/20 05:38 Pulse Ox 93 09/23/20 04:17 09/22/20 09/22/20 09/23/20 14:59 22:59 06:59 Intake Total 891.667 / 919.449 0531.833 / 2912.500 1000 / 3912.500 Output Total 200 / 200 400 / 600 360 / 960 Balance 691.667 / 287.860 1825.833 / 2312.500 640 / 2952.500 Physical Exam Narrative: EXAM NARRATIVE: Patient is conscious alert oriented X3 BMI 27.4 Head and neck examination PERRLA no masses no cervical lymphadenopathy no jaundice Cardiac examination audible S1-S2 no murmurs no gallops no arrhythmias Chest is clear bilateral,abscence of Rhonchi or wheezes,no surgical emphysema Abdomen nontender except mildly at the incision sites nondistended soft no organomegaly guarding or rigidity/no signs of peritonitis. Bowel sounds are hypoactive Dressing was taken down incisions are clean dry and intact and skin otf in place. Extremities no cyanosis no clubbing no edema Urinary Catheter Management^: Bertrand: Cath Placed During This Visit: yes, but has since been removed by the nurse Reason for Continuing Indwelling Catheter: Decision to DC Catheter Urinary Catheter Date of Insertion: 09/21/20 Urinary Catheter Time of Insertion: 10:48 Date Urinary Catheter Removed: 09/22/20 Time Urinary Catheter Discontinued: 06:40 Data : 09/23/20 02:08 09/23/20 02:08 A&P Assessment and plan (1) S/P laparoscopic colectomy: Patient undergone laparoscopic sigmoid colectomy with colorectal anastomosis 09/21/2020. Will Continue n.p.o. status except ice chips and popsicles, can have blood pressure medication with a sip of water Awaiting bowel function Continue incentive spirometer every hour Encourage ambulation Blood work shows slow drift in H&H, will continue holding on pharmacologic DVT prophylaxis, will continue SCDs. Assurance and education All questions have been answered and all concerns have been addressed to patient's satisfaction. Status: Acute Attestations Medical Necessity Statement*: Inpatient hospitalization for postoperative care status post sigmoid colectomy and awaiting bowel functions Time Spent in Patient Care: (>than 50% of time spent in counselling and/or direct pt care on unit). Coding Level of Care Code Acute Professional System Administrator for Chg Fwd Diagnoses S/P laparoscopic colectomy Z90.49
[2020-09-24] VITALS (8 sets, daily range): BP systolic 107–147; BP diastolic 68–89; PULSE 55–63; RESP 14–18; TEMP 36.1–36.7; O2SAT 94–96
[2020-09-24] MEDS: morphine 4 mg/mL SDV 1 mL 2 MG IVP ×2 (02:35→10:39)
[2020-09-24] MEDS: lactated ringers 1,000 ML 125 ML IV (04:14)
[2020-09-24] MEDS: famotidine 20 mg/2 mL INJ IVP ×2 (04:47→14:08)
--- NOTE | 2020-09-24 06:04 | P.PN_ITS ---
Subjective Subjective: Interval history: Patient had pain under control and feels that he is passing gas but not yet. Continues to ambulate and work on the incentive spirometer. Good urine output and no acute events overnight. Medications: Reviewed: Yes Vitals/I&O/Wt Last Vital Signs Temp 97.6 F 09/24/20 04:50 Pulse 60 09/24/20 04:50 Resp 18 09/24/20 04:50 BP 134/80 09/24/20 04:50 Pulse Ox 95 09/24/20 04:50 09/23/20 09/23/20 09/24/20 14:59 22:59 06:59 Intake Total 1000 / 1000 1000 / 2000 918.75 / 2918.75 Output Total 800 / 800 500 / 1300 1025 / 2325 Balance 200 / 200 500 / 700 -106.25 / 593.75 Physical Exam Narrative: EXAM NARRATIVE: Patient is conscious alert oriented X3 BMI 27.4 Head and neck examination PERRLA no masses no cervical lymphadenopathy no jaundice Cardiac examination audible S1-S2 no murmurs no gallops no arrhythmias Chest is clear bilateral,abscence of Rhonchi or wheezes,no surgical emphysema Abdomen nontender, nondistended soft no organomegaly guarding or rigidity/no signs of peritonitis. Bowel sounds are well active All incisions are clean dry and intact and skin otf in place. Extremities no cyanosis no clubbing no edema Urinary Catheter Management^: Bertrand: Cath Placed During This Visit: yes, but has since been removed by the nurse Reason for Continuing Indwelling Catheter: Decision to DC Catheter Urinary Catheter Date of Insertion: 09/21/20 Urinary Catheter Time of Insertion: 10:48 Date Urinary Catheter Removed: 09/22/20 Time Urinary Catheter Discontinued: 06:40 Data : 09/23/20 02:08 09/23/20 02:08 A&P Assessment and plan (1) S/P laparoscopic colectomy: Patient undergone laparoscopic sigmoid colectomy with colorectal anastomosis 09/21/2020. We will start the patient slowly on clear liquid diet and will switch to hydrocodone 5/325 1 tablet p.o. every 6 hours as needed and will discontinue the Dilaudid IV. We will switch IV fluids from LR to D5 half-normal +20 KCl at 100 mL/h Continue incentive spirometer every hour Encourage ambulation Blood work shows slow drift in H&H, will continue holding on pharmacologic DVT prophylaxis, will continue SCDs. Assurance and education All questions have been answered and all concerns have been addressed to patient's satisfaction. Status: Acute Attestations Medical Necessity Statement*: Inpatient hospitalization for postoperative care status post sigmoid colectomy ,awaiting bowel functions Time Spent in Patient Care: (>than 50% of time spent in counselling and/or direct pt care on unit) . 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
[2020-09-24] MEDS: cloNIDine 0.1 mg Tablet PO (06:23)
[2020-09-24] MEDS: D5-NS 0.45% + KCL 20 mEq 20 MEQ/1,000 ML BAG 100 MEQ IV ×2 (06:23→14:10)
[2020-09-24] MEDS: HYDROcodone-acetaminophen 5-325 mg Tablet 1 TAB PO ×3 (06:33→20:11)
--- NOTE | 2020-09-24 12:02 | PC.CHAP ---
Pastoral Care Encounter/Spiritual Assessment Type of Contact [] Declined hook and eye attacher visit [] Patient/Family/Request visit [] Outpatient visit [] Follow-up visit [] Physician referral [] Code/Alert [xx] Routine visit [] Staff referral [] Actively dying [] Patient sleeping [] Family support [] [] Out of room [] Palliative care [] [] Receiving care in room [] Pre-surgical visit [] Trauma [] Long length of stay [] ICU visit [] Other: Relational/Emotional Strength [x] Patient feels connected with others/family/visitors/staff [] Distress [] Loneliness/isolation [] Abandonment Spirituality of Patient [xx] Person of Nguyen [] Attends Zoroastrian of their Nguyen [xx] Believes in Prayer [xx] Reads Bible or Advent materials [] There are Spiritual issues to be addressed Carpet Cleaner Interventions [xx] Prayer [xx] Active listening [xx] Non-anxious presence [] Spiritual/emotional support [] Crisis/trauma care [] Spiritual counseling [] Bereavement support [] Provided bereavement packet [] Provided Bible/devotional materials [] Provided toy/stuffed animal, coloring book to patient or family member [] Provided Communion [] Anointing/[place] [] Salvation [xx] Completed spiritual assessment [] Other: Impact on Illness or Injury [] Angry [] Fearful [] Anxious [] Often cries [] Exhaustion [] Unable to work [] Unable to attend bahai [] Unable to walk/stand [] Unable to read [] Unable to drive [] Unable to eat/drink [] Unable to sleep [] Unable to be with family [] Patient intubated [] Other: Summary Patient feeling better after surgery but did not want to talk. He wanted prayer only. Nurse arrived then to give meds and help with shower. Time spent with patient 5 minutes
--- NOTE | 2020-09-24 23:44 | PC.NURSE ---
Pt states he has not passed any gas today. Bowel sounds are hypoactive in all 4 quads. States he has been walking with his in the hallway x 3 today. States he has been feeling some rumbling in his abdomen. He is tolerating clear liquid diet without n/v. Incisions are clean/dry with otf intact.
[2020-09-25] VITALS: BP 151/94; PULSE 55; RESP 18; TEMP 36.5; O2SAT 95
[2020-09-25 04:00] VITALS: BP 159/92; PULSE 61; RESP 17; TEMP 36.8; O2SAT 95
[2020-09-25] MEDS: famotidine 20 mg/2 mL INJ IVP (04:32)
[2020-09-25] MEDS: HYDROcodone-acetaminophen 5-325 mg Tablet 1 TAB PO ×2 (04:33→10:52)
--- NOTE | 2020-09-25 05:01 | PC.NURSE ---
Patient reports passing gas this morning! Requesting pain med- Sabin/Apap given for abd pain, rates 7/10.
[2020-09-25 05:10] VITALS: BP 159/92
[2020-09-25] MEDS: cloNIDine 0.1 mg Tablet PO (05:10)
--- NOTE | 2020-09-25 06:05 | P.PN_ITS ---
Subjective Subjective: Interval history: Per nursing reporting overnight patientis passing gas and feels well.No acute events overnight,pain under control by po pain meds. Patient reports that he feels better and he has passed gas multiple times. Medications: Reviewed: Yes Vitals/I&O/Wt Last Vital Signs Temp 98.3 F 09/25/20 04:00 Pulse 61 09/25/20 04:00 Resp 17 09/25/20 04:00 BP 159/92 09/25/20 05:10 Pulse Ox 95 09/25/20 04:00 09/24/20 09/24/20 09/25/20 14:59 22:59 06:59 Intake Total 1598.333 / 1598.333 500 / 2098.333 986.667 / 3085.000 Output Total 800 / 800 1025 / 1825 1200 / 3025 Balance 798.333 / 798.333 -525 / 273.333 -213.333 / 60.000 Physical Exam Narrative: EXAM NARRATIVE: Patient is conscious alert oriented X3 BMI 27.4 Head and neck examination PERRLA no masses no cervical lymphadenopathy no jaundice Abdomen nontender nondistended soft no organomegaly guarding or rigidity/no signs of peritonitis Incisions are clean dry and intact and skin otf in place Urinary Catheter Management^: Bertrand: Cath Placed During This Visit: yes, but has since been removed by the nurse Reason for Continuing Indwelling Catheter: Decision to DC Catheter Urinary Catheter Date of Insertion: 09/21/20 Urinary Catheter Time of Insertion: 10:48 Date Urinary Catheter Removed: 09/22/20 Time Urinary Catheter Discontinued: 06:40 Data : 09/23/20 02:08 09/23/20 02:08 A&P Assessment and plan (1) S/P laparoscopic colectomy: Patient undergone laparoscopic sigmoid colectomy with colorectal anastomosis 09/21/2020. Advance to full liquid diet Resume amlodipine 10 mg p.o. daily Continue incentive spirometer every hour Encourage ambulation Once patient tolerates p.o. full liquid diet & protein shakes intake we will plan to DC home today. Assurance and education All questions have been answered and all concerns have been addressed to patient's satisfaction. Status: Acute Attestations Medical Necessity Statement*: Patient required inpatient hospitalization awaiting for bowel functions. Patient continues to tolerate p.o. intake and will plan to DC home today Time Spent in Patient Care: (>than 50% of time spent in counselling and/or direct pt care on unit) . Coding Level of Care Code Acute Recyclable Products Sorter for Chg Fwd Diagnoses S/P laparoscopic colectomy Z90.49
[2020-09-25 07:05] VITALS: BP 115/81; PULSE 55; RESP 16; TEMP 36.1; O2SAT 99
--- NOTE | 2020-09-25 07:29 | P.DS_ITS ---
Discharge Providers Date of Admission: 09/21/20 16:00 Date of Discharge: September 25, 2020 Attending Provider at Admission: Mayo Palma MD Attending Provider at Discharge: Mayo Palma MD Primary Care Provider: Farhad Miguel MD Diagnoses at Discharge Discharge Diagnosis (1) S/P laparoscopic colectomy: Status: Resolved Reason for Visit Reason for Visit: laparoscopy sigmoid colectomy Hospital Course Hospital Course Patient undergone uneventful laparoscopic sigmoid colectomy with colorectal anastomosis for recurrent episodes of sigmoid diverticulitis. Overall patient did well postoperatively initially required IV Dilaudid and morphine for pain control and eventually the pain has been under better control and once the patient started clear liquid diet p.o. pain medications was on board and that helped as well to sustain his pain management. Patient had his blood pressure on the higher side and home medications were resumed. Otherwise maintained to have stable vital signs without tachycardia or hypotension and no fevers in addition to adequate urine output. Patient tolerating p.o. intake and passing gas and will advance to full liquid diet and also protein shakes were added to his meals. Is currently off IV pain medications and his pain is under control with p.o. pain medications per se. Patient meeting appropriate criteria for discharge home today. Physical Exam Narrative: EXAM NARRATIVE: Patient is conscious alert oriented X3 BMI 27.4 Head and neck examination PERRLA no masses no cervical lymphadenopathy no jaundi ce Chest is clear bilateral no evidence of rhonchi or wheezes Cardiac exam audible S1-S2 no murmurs or gallops or arrhythmias Abdomen nontender nondistended soft no organomegaly guarding or rigidity/no signs of peritonitis Incisions are clean dry and intact and skin otf in place Urinary Catheter Management^: Bertrand: Cath Placed During This Visit: yes, but has since been removed by the nurse Reason for Continuing Indwelling Catheter: Decision to DC Catheter Urinary Catheter Date of Insertion: 09/21/20 Urinary Catheter Time of Insertion: 10:48 Date Urinary Catheter Removed: 09/22/20 Time Urinary Catheter Discontinued: 06:40 Discharge Data Data Completed and Pending: Pending at discharge Category Date Time Status ES surgery / GI i mages Routine Exams 09/21/20 09:27 Taken Pathology: Surgic al [PTH] Routine Pth 09/21/20 15:45 Received Vitals: Last Vital Signs Temp 96.9 F L 09/25/20 07:05 Pulse 55 L 09/25/20 07:05 Resp 16 09/25/20 07:05 BP 115/81 09/25/20 07:05 Pulse Ox 99 09/25/20 07:05 Discharge Plan Discharge Patient Disposition: Home Condition: Stable Prescriptions: New hydrocodone-acetaminophen 5-325 mg tablet 1 tab PO Q6H PRN (Reason: pain) Qty: 28 RF: 0 Continued amlodipine 10 mg tablet 10 mg PO QAM Qty: 30 RF: 0 clonidine HCl 0.1 mg tablet 0.1 mg PO QAM RF: 0 Discontinued erythromycin 500 mg tablet 500 mg PO DAILY Qty: 3 RF: 0 neomycin 500 mg tablet 1 g PO DAILY Qty: 6 RF: 0 Discharge Orders: Discharge Order (Routine); Ordered 09/25/20 Ordered By: Mayo Palma Referrals: Mayo Palma MD [Physician] - (Return to surgery office in 1 week) Discharge Diet: As Directed Discharge Activity: Limit activity as instructed Activity Restrictions/Additional Instructions: 1. Patient can shower after 48 hours from surgery 2. Cessation of smoking 3. Up and walking as tolerated 4. Do NOT lift more than 5 pounds first 2 weeks after surgery and not more than 25 pounds 6 to 8 weeks after surgery. 5. Do not operate heavy machinery or drive while using pain medications. 6. Contact the office or return to the ER for worsening nausea vomiting fevers or chills, or noticing any redness around incision sites or discharge. 7. Avoid constipation 8. Incentive spirometer every hour while awake 9. Full liquid diet today and tomorrow and on Sunday start to advance to soft GI diet. Discharge Attestations Time Spent in Discharge Care*: greater than 30 min Specific Discharge Activities: educating patient and educating and/or bowles pporting family/caregiver Time Spent in Smoking Cessation: more than 10 minutes Status at Discharge: Cognitive status at discharge: cognitively intact , Behavioral status at discharge: cooperative , Functional status at discharge: independent ambulation Quality Metrics Clinical Quality Measures During this hospital stay, did patient experience: None Coding Level of Care Code Acute Chg FW DC note Diagnoses S/P laparoscopic colectomy Z90.49
[2020-09-25] MEDS: D5-NS 0.45% + KCL 20 mEq 20 MEQ/1,000 ML BAG 50 MEQ IV (08:28)
[2020-09-25 11:37] VITALS: BP 115/81; PULSE 55; RESP 16; TEMP 36.1; O2SAT 99
== END 2020-09-25 11:37 | disposition home or self-care (01) | DRG 331 ==
LOC: MEDSURG 09-22 13:11
PROVIDERS: Admitting Provider Surgery; PCP Family Medicine Adult Medicine; Visit Provider Surgery
PROC: 0DTN4ZZ Resection of Sigmoid Colon, Percutaneous Endoscopic Approach (ICD-10-PCS; CPT 44204; principal; 2020-09-21 10:55)
PROC: 0DJD8ZZ Inspection of Lower Intestinal Tract, Via Natural or Artificial Opening Endoscopic (ICD-10-PCS; CPT 45330; 2020-09-21 10:55)
DX: K57.32 Diverticulitis of large intestine without perforation or abscess without bleeding (principal); I10 Essential (primary) hypertension; F17.210 Nicotine dependence, cigarettes, uncomplicated; K66.0 Peritoneal adhesions (postprocedural) (postinfection)
CPT/HCPCS: 36415; 80048; 85014; 85018; 88309; C9290; J1100; J1170; J1644; J1940; J2270; J2405; J2543; J2704; J3010; J3490; J7030